=== PATIENT | male | born 1985 | race Caucasian/White ===

== ENCOUNTER 2019-05-16 22:07 | Emergency (ER) | payer SELFPAY ==
[2019-05-16] MEDS ORDERED: DIAZEPAM 5 MG TABLET ONE (22:29)
[2019-05-17] MEDS ORDERED: MORPHINE 4 MG/ML SYR ONE (00:05)
--- NOTE | 2019-05-17 01:55 | EDPHYS ---
Physician Documentation [facility] Name: Campos Sampson Age: 33 yrs Sex: Male : 1985 Arrival Date: 05/16/2019 Time: 22:07 Bed 8 Private MD: ED Physician Neto Ramos HPI: 05/16 23:53 This 33 yrs old Male presents to ER via EMS with complaints of Fall Injury. snw 23:53 Details of fall: The patient fell from a height, from a ladder, approximately 3 feet. snw Onset: The symptoms/episode began/occurred acutely, just prior to arrival. Associated injuries: The patient sustained left knee, decreased range of motion, painful injury, swelling. Severity of symptoms: At their worst the symptoms were moderate, severe. The patient has not experienced similar symptoms in the past. The patient has not recently seen a physician. 23:53 Pt fell from ladder while at work at [employer]. snw Historical: - Allergies: 22:24 No Known Allergies; ea - Home Meds: 22:24 Seroquel Oral [Active]; Naproxen Oral [Active]; ea - PMHx: 22:24 Arthritis; insomnia; Hypertension; ea - PSHx: 22:24 None; ea - Immunization history: Last tetanus immunization: unknown. - Social history:: Smoking status: Patient/guardian denies using tobacco. - Ebola Screening: : No symptoms or risks identified at this time. ROS: 23:06 Constitutional: Negative for fever, chills, and weight loss, Eyes: Negative for injury, snw pain, redness, and discharge, ENT: Negative for injury, pain, and discharge, Neck: Negative for injury, pain, and swelling, Cardiovascular: Negative for chest pain, palpitations, and edema, Respiratory: Negative for shortness of breath, cough, wheezing, and pleuritic chest pain, Abdomen/GI: Negative for abdominal pain, nausea, vomiting, diarrhea, and constipation, Back: Negative for injury and pain, : Negative for injury, bleeding, discharge, and swelling, Skin: Negative for injury, rash, and discoloration, Neuro: Negative for headache, weakness, numbness, tingling, and seizure, Psych: Negative for depression, anxiety, suicide ideation, homicidal ideation, and hallucinations, Allergy/Immunology: Negative for hives, rash, and allergies, Endocrine: Negative for neck swelling, polydipsia, polyuria, polyphagia, and marked weight changes. 23:06 MS/extremity: Positive for injury or acute deformity, pain, swelling, of the left knee. Exam: 23:06 Constitutional: This is a well developed, well nourished patient who is awake, alert, snw and in no acute distress. Head/Face: Normocephalic, atraumatic. Eyes: Pupils equal round and reactive to light, extra-ocular motions intact. Lids and lashes normal. Conjunctiva and sclera are non-icteric and not injected. Cornea within normal limits. Periorbital areas with no swelling, redness, or edema. ENT: Nares patent. No nasal discharge, no septal abnormalities noted. Tympanic membranes are normal and external auditory canals are clear. Oropharynx with no redness, swelling, or masses, exudates, or evidence of obstruction, uvula midline. Mucous membranes moist. Neck: Trachea midline, no thyromegaly or masses palpated, and no cervical lymphadenopathy. Supple, full range of motion without nuchal rigidity, or vertebral point tenderness. No Meningismus. Chest/axilla: Normal chest wall appearance and motion. Nontender with no deformity. No lesions are appreciated. Cardiovascular: Regular rate and rhythm with a normal S1 and S2. No gallops, murmurs, or rubs. Normal PMI, no JVD. No pulse deficits. Respiratory: Lungs have equal breath sounds bilaterally, clear to auscultation and percussion. No rales, rhonchi or wheezes noted. No increased work of breathing, no retractions or nasal flaring. Abdomen/GI: Soft, non-tender, with normal bowel sounds. No distension or tympany. No guarding or rebound. No evidence of tenderness throughout. Back: No spinal tenderness. No costovertebral tenderness. Full range of motion. Skin: Warm, dry with normal turgor. Normal color with no rashes, no lesions, and no evidence of cellulitis. Neuro: Awake and alert, GCS 15, oriented to person, place, time, and situation. Cranial nerves II-XII grossly intact. Motor strength 5/5 in all extremities. Sensory grossly intact. Cerebellar exam normal. Normal gait. Psych: Awake, alert, with orientation to person, place and time. Behavior, mood, and affect are within normal limits. 23:06 Musculoskeletal/extremity: Extremities: all appear grossly normal, with no appreciated pain with palpation, ROM: limited active range of motion due to pain, Circulation is intact in all extremities. Sensation intact. tenderness and pain with extension to left knee. Vital Signs: 22:16 BP 153 / 103; Pulse 65; Resp 18; Temp 99.1; Pulse Ox 100% on R/A; Weight 74.84 kg; ea Height 5 ft. 9 in. (175.26 cm); Pain 10/10; 23:21 BP 140 / 71; Pulse 87; Resp 18; Pulse Ox 100% on R/A; ea 05/17 00:53 BP 140 / 71; Pulse 83; Resp 18; Pulse Ox 100% ; ea 01:57 BP 138 / 75; Pulse 92; Resp 18; Pulse Ox 99% ; ea 02:50 BP 135 / 71; Pulse 84; Resp 18; Pulse Ox 98% ; ea 05/16 22:16 Body Mass Index 24.37 (74.84 kg, 175.26 cm) ea [place] Coma Score: 05/16 22:16 Eye Response: spontaneous(4). Verbal Response: oriented(5). Motor Response: obeys ea commands(6). Total: 15. 23:21 Eye Response: spontaneous(4). Verbal Response: oriented(5). Motor Response: obeys ea commands(6). Total: 15. 05/17 00:53 Eye Response: spontaneous(4). Verbal Response: oriented(5). Motor Response: obeys ea commands(6). Total: . :58 Eye Response: spontaneous(4). Verbal Response: oriented(5). Motor Response: obeys ea commands(6). Total: 15. :50 Eye Response: spontaneous(4). Verbal Response: oriented(5). Motor Response: obeys ea commands(6). Total: 15. Trauma Score (Adult): 05/16 22:16 Eye Response: spontaneous(1); Verbal Response: oriented(1); Motor Response: obeys ea commands(2); Systolic BP: > 89 mm Hg(4); Respiratory Rate: 10 to 29 per min(4); Gretel Score: 15; Trauma Score: 12 MDM: 22:18 Patient medically screened. snw 23:55 Data reviewed: vital signs, nurses notes. Data interpreted: Pulse oximetry: on room air snw is 100 %. Interpretation: normal. Counseling: I had a detailed discussion with the patient and/or guardian regarding: the historical points, exam findings, and any diagnostic results supporting the discharge/admit diagnosis, radiology results. Physician consultation: Gagan Burnett MD was called at 23:56, was contacted at 23:56, regarding consult, patient's condition, outpatient follow-up, CT knee, immobilize, nwb, follow up. 05/17 03:05 Special discussion: Based on the history and exam findings, there is no indication for snw further emergent testing or inpatient evaluation. I discussed with the patient/guardian the need to see the orthopedic surgeon for further evaluation of the symptoms. ED course: no open lesions to left knee area. 05/16 22:19 Order name: Knee Left 3 View XRAY snw 05/16 23:56 Order name: CT LEFT KNEE WO CONTRAST EDMS 05/17 01:25 Order name: Knee Immobilizer; Complete Time: 02:33 snw 05/17 01:26 Order name: Crutches; Complete Time: 02:33 snw Administered Medications: 05/16 22:30 Drug: Valium 5 mg Route: PO; ea 23:50 Follow up: Response: No adverse reaction; Pain is decreased ea 05/17 00:09 Drug: morphine 4 mg Route: IM; Site: right deltoid; ea 01:59 Follow up: Response: No adverse reaction; Pain is decreased; RASS: Alert and Calm (0) ea 02:43 Drug: Dilaudid 1 mg {Note: rass 0.} Route: IM; Site: left deltoid; rr5 03:19 Follow up: Response: Medication administered at discharge.; RASS: Alert and Calm (0) ea Disposition: 10:20 Co-signature as Attending Physician, Neto Ramos MD I agree with the assessment and kdr plan of care. Disposition: 05/17/19 01:54 Discharged to Home. Impression: Left tibial plateau fracture, Fall on and from ladder. - Condition is Stable. - Discharge Instructions: Crutch Use, Fall Prevention in the Home, Knee Immobilizer, Tibial Plateau Fracture Treated With Open Reduction, Care After, Tibial Plateau Fracture Treated With Open Reduction. - Prescriptions for Tylenol- Codeine #3 300-30 mg Oral Tablet - take 2 tablet by ORAL route every 6 hours As needed; 30 tablet. orphenadrine citrate 100 mg Oral Tablet Sustained Release - take 1 tablet by ORAL route 2 times per day As needed; 20 tablet. - Medication Reconciliation Form, Thank You Letter, Antibiotic Education, Prescription Opioid Use, Work release form form. - Follow up: Emergency Department; When: As needed; Reason: Worsening of condition. Follow up: Gagan Burnett; When: 2 - 3 days; Reason: Recheck today's complaints, Continuance of care. Signatures: Dispatcher [employer] EDMS Neto Ramos MD MD kdr Therrien, Shelly, FNP-C MUSIC TEACHER-Charline Chaudhry RN RN ea Roque, Raymond, RN RN rr5 Corrections: (The following items were deleted from the chart) 03:19 01:54 05/17/2019 01:54 Discharged to Home. Impression: Left tibial plateau fracture; ea Fall on and from ladder. Condition is Stable. Discharge Instructions: Crutch Use, Fall Prevention in the Home, Knee Immobilizer, Tibial Plateau Fracture Treated With Open Reduction, Care After, Tibial Plateau Fracture Treated With Open Reduction. Prescriptions for Tylenol-Codeine #3 300-30 mg Oral Tablet - take 2 tablet by ORAL route every 6 hours As needed; 30 tablet, orphenadrine citrate 100 mg Oral Tablet Sustained Release - take 1 tablet by ORAL route 2 times per day As needed; 20 tablet. and Forms are Medication Reconciliation Form, Thank You Letter, Antibiotic Education, Prescription Opioid Use. Follow up: Emergency Department; When: As needed; Reason: Worsening of condition. Follow up: Gagan Burnett; When: 2 - 3 days; Reason: Recheck today's complaints, Continuance of care. snw
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
[2019-05-17] MEDS ORDERED: HYDROMORPHONE HCL 1 MG/ML INJ ONE (02:39)
[2019-05-17 03:44] VITALS: TEMP 99.1
[2019-05-17 03:50] VITALS: BP 135/71; O2SAT 98
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
--- NOTE | 2019-05-18 11:41 | RAD REPORT ---
EXAM DESCRIPTION: - CT LEFT KNEE WO CONTRAST - 05/17/2019 2:38 am CLINICAL HISTORY: Fell off a step ladder landing on left foot. Patient felt a click. COMPARISON: None. TECHNIQUE: Axial 2.[address] imaging of the left knee performed. Reformatted coronal and sagittal imag es obtained. No contrast utilized. Automated exposure control, adjustment of the mA and/or kV according to patient size, or use of itera tive reconstruction was performed. FINDINGS: There is a comminuted left proximal tibia fracture. There is depression of the lateral nazario teau by 5 mm. There is lateral displacement of the lateral fragments by 8 mm. There is a comminuted f racture of the head of the fibula. A large joint effusion is present with a fat fluid level within th e suprapatellar joint space compatible with lipohemarthrosis. There is no distal left femur fracture. Intact patella. There are a few foci of intra-articular air. No foreign body. No subcutaneous emphys wyatt. IMPRESSION: 1. Comminuted proximal left tibia and fibula head fracture. There is 5 mm depression o f the lateral tibial plateau with 8 mm lateral displacement of the fragments. Associated large lipohe marthrosis. A few bubbles of intra-articular air raises the possibility of an open injury. Electronically signed by: Mouna Mittal DO 05/17/2019 2:31 AM CUT OUT STITCHER Due to temporary technical issues with the PACS/Fluency reporting system, reports are being signed by the in house radiologist as a courtesy to ensure prompt reporting. The interpreting radiologist is f ully responsible for the content of the report.
== END 2019-05-17 03:19 | disposition home or self-care (01) ==
LOC: ER 22:07
DX: S82.142A Displaced bicondylar fracture of left tibia, initial encounter for closed fracture (principal); W11.XXXA Fall on and from ladder, initial encounter; Y93.9 Activity, unspecified; Y92.89 Other specified places as the place of occurrence of the external cause; Y99.8 Other external cause status; I10 Essential (primary) hypertension
CPT/HCPCS: 73700; 96372; 99284; J1170

== ENCOUNTER 2020-11-21 15:32 | Emergency (ER) | payer OTHER, SELFPAY ==
--- OUTSIDE RECORDS SUMMARY | 2020-11-21 15:35 | XMS REPORT | Continuity of Care Document ---
:1985 Author Organization [facility] t Address [address] [place] [address] Care Team Providers Name Role Phone Unavailable Unavailable Unavailable Payers Payer Name Policy Type Policy Number Effective Date Expiration Date S ource Problems This patient has no known problems. Allergies, Adverse Reactions, Alerts Allergy Allergy Status Severity Reaction(s) Onset Inactive Treating Comm ents Source Name Type Date Date Clinician No Known DA Active U 2018-06 [facility] Allergie 2-13 Clear s 00:00: Maza 00 [facility] Medications This patient has no known medications. Procedures This patient has no known procedures. Results Test Description Test Time Test Comments Results Result [facility] e Comments - CT LOWER EXTRM 2019-06-04 Name: W/O C LT 16:10:[address] [facility] : 1985 Age/S: 33 / M [address] Unit #: [id number] Loc: [place] [address] Phys: Dre Snyder MD Acct: [id number] Dis Date: Status: ADM IN PHONE #: [phone] Exam Date: 06/04/2019 1515 FAX #: Reason: pain left ankle and foot EXAMS: CPT: [id number] [place] EXTR[place] W/[place] [address] EXAM: - CT LOWER EXTRM W/O C LT HISTORY: pain left ankle and foot Location code:C3 COMPARISON: 05/31/2019 TECHNIQUE: Multiple axial CT images were obtained of the left foot and ankle without the use of IV contrast. Coronal and sagittal reformatted images are provided. One or more of the following dose reduction techniques were used: Automated exposure control, adjustment of the mA and/or kV according to patient size, and/or utilization of iterative reconstruction technique. DLP: 144.47 mGy-cm. FINDINGS: There is a 5 x 4 mm well-corticated ossific density along the course of the posterior tibial tendon lying just medial and inferior to the navicular. Mild midfoot degenerative changes seen with small plantar calcaneal enthesophyte. There is no acute fracture or malalignment. There is mild increased stranding of the subcutaneous tissues about the ankle greatest about the dorsal lateral aspect. IMPRESSION: 1. Well-corticated 5 mm ossific density by the posterior tibial tendon as it courses inferior medial to the navicular favors os navicularis. There is soft tissue swelling about the ankle without acute osseous abnormality. Consider MRI to assess for ligamentous injury if indicated. at 1610 Reported and signed by: Teja Hudson MD CC: Vasu Stone MD; Dre Snyder MD; Brian Avery MD Technologist:Ross Ch RT(R)(CT)(MRI) CTDI: DLP: Trnscb Date/Time: 06/04/2019 (1610) [email or web address] Orig Print D/T: S: 06/04/2019 (1606) PAGE 1 Signed Report CBC W/AUTO DIFF 2019-06-04 10:14:00 Test Item Value Reference Range Interpretation Comme nts WHITE BLOOD CELL (test code = 9.2 K/mm3 3.5-11.0 N WBC) RED BLOOD CELL (test code = RBC) 4.28 M/mm3 4.70-6.10 L HEMOGLOBIN (test code = HGB) 12.4 G/DL 12.3-15.9 N HEMATOCRIT (test code = HCT) 37.4 % 35.8-46.7 N MEAN CELL VOLUME (test code = 87.4 Fl 86.3-98.9 N MCV) MEAN CELL HGB (test code = MCH) 29.0 pg 28.9-34.4 N MEAN CELL HGB CONCETRATION (test 33.2 G/DL 32.1-34.5 N code = MCHC) RED CELL DISTRIBUTION WIDTH 12.7 SD 11.5-14.5 N (test code = RDW) PLATELET COUNT (test code = PLT) 287.0 K/mm3 150-450 N MEAN PLATELET VOLUME (test code 10.90 fL 7.0-9.6 H = MPV) NEUTROPHIL % (test code = NT%) 55.3 % 40-76 N LYMPHOCYTE % (test code = LY%) 31.6 % 20.5-51.1 N MONOCYTE % (test code = MO%) 10.3 % 1.7-9.3 H EOSINOPHIL % (test code = EO%) 2.6 % 0.0-6.0 N BASOPHIL % (test code = BA%) 0.2 % 0.0-2.0 N NEUTROPHIL # (test code = NT#) 5.07 K/mm3 1.8-7.6 N LYMPHOCYTE # (test code = LY#) 2.9 K/mm3 0.6-3.0 N MONOCYTE # (test code = MO#) 0.9 K/mm3 0.2-1.5 N EOSINOPHIL # (test code = EO#) 0.2 K/mm3 0.0-0.4 N BASOPHIL # (test code = BA#) 0.0 K/mm3 0.0-0.2 N MANUAL DIFF REQUIRED (test code NO DIFF/SCN CRITERIA SLIDE REVIEW CONSISTANT WITH = MDIFF) AUTO DIFFERENTI AL. CBC W/AUTO [id number] 07:54:00 Test Item Value Reference Range Interpretation Comments WHITE BLOOD CELL (test code = 9.2 K/mm3 3.5-11.0 N WBC) RED BLOOD CELL (test code = RBC) 4.28 M/mm3 4.70-6.10 L HEMOGLOBIN (test code = HGB) 12.4 G/DL 12.3-15.9 N HEMATOCRIT (test code = HCT) 37.4 % 35.8-46.7 N MEAN CELL VOLUME (test code = 87.4 Fl 86.3-98.9 N MCV) MEAN CELL HGB (test code = MCH) 29.0 pg 28.9-34.4 N MEAN CELL HGB CONCETRATION (test 33.2 G/DL 32.1-34.5 N code = MCHC) RED CELL DISTRIBUTION WIDTH (test 12.7 SD 11.5-14.5 N code = RDW) PLATELET COUNT (test code = PLT) 287.0 K/mm3 150-450 N MEAN PLATELET VOLUME (test code = 10.90 fL 7.0-9.6 H MPV) NEUTROPHIL % (test code = NT%) % 40-76 N LYMPHOCYTE % (test code = LY%) % 20.5-51.1 N MONOCYTE % (test code = MO%) % 1.7-9.3 H EOSINOPHIL % (test code = EO%) % 0.0-6.0 N BASOPHIL % (test code = BA%) % 0.0-2.0 N NEUTROPHIL # (test code = NT#) K/mm3 1.8-7.6 N LYMPHOCYTE # (test code = LY#) K/mm3 0.6-3.0 N MONOCYTE # (test code = MO#) K/mm3 0.2-1.5 N EOSINOPHIL # (test code = EO#) K/mm3 0.0-0.4 N BASOPHIL # (test code = BA#) K/mm3 0.0-0.2 N MANUAL DIFF REQUIRED (test code = DIFF/SCN CRITERIA MDIFF) BASIC METABOLIC [id number] 07:46:00 Test Item Value Reference Range Interpretation Comments SODIUM (test code = NA) 138 mmol/L 134-147 N POTASSIUM (test code = 4.1 mmol/L 3.4-5.0 N K) CHLORIDE (test code = 105 mmol/L 100-108 N CL) CARBON DIOXIDE (test 30 mmol/L 21-32 N code = CO2) ANION GAP (test code = 3.0 GAP calc 4.0-15.0 L GAP) GLUCOSE (test code = 87 MG/DL 70-110 N GLU) BLOOD UREA NITROGEN 20 MG/DL 7-18 H (test code = BUN) GLOMERULAR FILTRATION >=60 max estimate >60 RATE (test code = GFR) estGFR CREATININE (test code = 0.9 MG/DL 0.8-1.3 N CREAT) CALCIUM (test code = CA) 8.8 MG/DL 8.5-10.1 N [id number] 07:46:00 Test Item Value Reference Range Interpretation Comments MAGNESIUM (test code = MAG) 2.1 MG/DL 1.8-2.4 N HGB [id number] 09:03:00 Test Item Value Reference Range Interpretation Comments HEMOGLOBIN (test code = HGB) 12.8 G/DL 12.3-15.9 N HEMATOCRIT (test code = HCT) 38.7 % 35.8-46.7 N CBC W/AUTO [id number] 06:02:00 Test Item Value Reference Range Interpretation Comments WHITE BLOOD CELL (test code = 14.7 K/mm3 3.5-11.0 H WBC) RED BLOOD CELL (test code = RBC) 4.80 M/mm3 4.70-6.10 N HEMOGLOBIN (test code = HGB) 14.1 G/DL 12.3-15.9 N HEMATOCRIT (test code = HCT) 41.2 % 35.8-46.7 N MEAN CELL VOLUME (test code = 85.8 Fl 86.3-98.9 L MCV) MEAN CELL HGB (test code = MCH) 29.4 pg 28.9-34.4 N MEAN CELL HGB CONCETRATION (test 34.2 G/DL 32.1-34.5 N code = MCHC) RED CELL DISTRIBUTION WIDTH 12.9 SD 11.5-14.5 N (test code = RDW) PLATELET COUNT (test code = PLT) 314.0 K/mm3 150-450 N MEAN PLATELET VOLUME (test code 10.20 fL 7.0-9.6 H = MPV) MANUAL DIFF REQUIRED (test code YES DIFF/SCN CRITERIA = MDIFF) WBC [id number] 06:02:00 Test Item Value Reference Range Interpretation Comments SEGMENTED NEUTROPHILS (test code = SEG) % 40-75 LYMPHOCYTE (test code = LYMPH) % 12.6-43.5 CBC W/AUTO [id number] 06:02:00 Test Item Value Reference Range Interpretation Comments WHITE BLOOD CELL (test code = 14.7 K/mm3 3.5-11.0 H WBC) RED BLOOD CELL (test code = RBC) 4.80 M/mm3 4.70-6.10 N HEMOGLOBIN (test code = HGB) 14.1 G/DL 12.3-15.9 N HEMATOCRIT (test code = HCT) 41.2 % 35.8-46.7 N MEAN CELL VOLUME (test code = 85.8 Fl 86.3-98.9 L MCV) MEAN CELL HGB (test code = MCH) 29.4 pg 28.9-34.4 N MEAN CELL HGB CONCETRATION (test 34.2 G/DL 32.1-34.5 N code = MCHC) RED CELL DISTRIBUTION WIDTH 12.9 SD 11.5-14.5 N (test code = RDW) PLATELET COUNT (test code = PLT) 314.0 K/mm3 150-450 N MEAN PLATELET VOLUME (test code 10.20 fL 7.0-9.6 H = MPV) MANUAL DIFF REQUIRED (test code YES DIFF/SCN CRITERIA = MDIFF) WBC [id number] 06:02:00 Test Item Value Reference Range Interpretation Comments SEGMENTED NEUTROPHILS (test 62 % 40-75 N code = SEG) BAND NEUTROPHIL (test code 2 % 0-8 N = BAND) LYMPHOCYTE (test code = 21 % 12.6-43.5 N LYMPH) MONOCYTE (test code = MON) 12 % 4.2-12.7 N EOSINOPHIL (test code = 1 % 0.0-5.2 N EOS) METAMYELOCYTE (test code = 1 % 0-2 N META) MYELOCYTE (test code = 1 % 0-1 N MYELO) ANISOCYTOSIS (test code = NORMAL NONE ANISO) PLATELET ESTIMATE (test ADEQUATE THOUSAND ADEQUATE code = PLTEST) CBC W/AUTO [id number] 06:02:00 Test Item Value Reference Range Interpretation Comments WHITE BLOOD CELL (test code = 14.7 K/mm3 3.5-11.0 H WBC) RED BLOOD CELL (test code = RBC) 4.80 M/mm3 4.70-6.10 N HEMOGLOBIN (test code = HGB) 14.1 G/DL 12.3-15.9 N HEMATOCRIT (test code = HCT) 41.2 % 35.8-46.7 N MEAN CELL VOLUME (test code = 85.8 Fl 86.3-98.9 L MCV) MEAN CELL HGB (test code = MCH) 29.4 pg 28.9-34.4 N MEAN CELL HGB CONCETRATION (test 34.2 G/DL 32.1-34.5 N code = MCHC) RED CELL DISTRIBUTION WIDTH 12.9 SD 11.5-14.5 N (test code = RDW) PLATELET COUNT (test code = PLT) 314.0 K/mm3 150-450 N MEAN PLATELET VOLUME (test code 10.20 fL 7.0-9.6 H = MPV) MANUAL DIFF REQUIRED (test code YES DIFF/SCN CRITERIA = MDIFF) WBC [id number] 06:02:00 Test Item Value Reference Range Interpretation Comments SEGMENTED NEUTROPHILS (test code = SEG) % 40-75 LYMPHOCYTE (test code = LYMPH) % 12.6-43.5 BASIC METABOLIC [id number] 05:56:00 Test Item Value Reference Range Interpretation Comments SODIUM (test code = NA) 137 mmol/L 134-147 N POTASSIUM (test code = 3.7 mmol/L 3.4-5.0 N K) CHLORIDE (test code = 102 mmol/L 100-108 N CL) CARBON DIOXIDE (test 28 mmol/L 21-32 N code = CO2) ANION GAP (test code = 7.0 GAP calc 4.0-15.0 N GAP) GLUCOSE (test code = 119 MG/DL 70-110 H GLU) BLOOD UREA NITROGEN 21 MG/DL 7-18 H (test code = BUN) GLOMERULAR FILTRATION >=60 max estimate >60 RATE (test code = GFR) estGFR CREATININE (test code = 1.0 MG/DL 0.8-1.3 N CREAT) CALCIUM (test code = CA) 8.7 MG/DL 8.5-10.1 N CBC W/AUTO [id number] 05:47:00 Test Item Value Reference Range Interpretation Comments WHITE BLOOD CELL (test code = 14.7 K/mm3 3.5-11.0 H WBC) RED BLOOD CELL (test code = RBC) 4.80 M/mm3 4.70-6.10 N HEMOGLOBIN (test code = HGB) 14.1 G/DL 12.3-15.9 N HEMATOCRIT (test code = HCT) 41.2 % 35.8-46.7 N MEAN CELL VOLUME (test code = 85.8 Fl 86.3-98.9 L MCV) MEAN CELL HGB (test code = MCH) 29.4 pg 28.9-34.4 N MEAN CELL HGB CONCETRATION (test 34.2 G/DL 32.1-34.5 N code = MCHC) RED CELL DISTRIBUTION WIDTH (test 12.9 SD 11.5-14.5 N code = RDW) PLATELET COUNT (test code = PLT) 314.0 K/mm3 150-450 N MEAN PLATELET VOLUME (test code = 10.20 fL 7.0-9.6 H MPV) NEUTROPHIL % (test code = NT%) % 40-76 N LYMPHOCYTE % (test code = LY%) % 20.5-51.1 N MONOCYTE % (test code = MO%) % 1.7-9.3 H EOSINOPHIL % (test code = EO%) % 0.0-6.0 N BASOPHIL % (test code = BA%) % 0.0-2.0 N NEUTROPHIL # (test code = NT#) K/mm3 1.8-7.6 H LYMPHOCYTE # (test code = LY#) K/mm3 0.6-3.0 N MONOCYTE # (test code = MO#) K/mm3 0.2-1.5 H EOSINOPHIL # (test code = EO#) K/mm3 0.0-0.4 N BASOPHIL # (test code = BA#) K/mm3 0.0-0.2 N MANUAL DIFF REQUIRED (test code = DIFF/SCN CRITERIA MDIFF) - XR FLUOROSCOPY 0-60 [id number] 14:44:00 Name: JVAY GRANGER [facility] : 1985 Age/S: 33 / M [address] #: [id number] Loc: [place] [address] Phys: Richard Marie MD Acct: [id number] Dis Date: Status: ADM IN PHONE #: [phone] Exam Date: 05/31/2019 1430 FAX #: Reason: ORIF LEFT TIBIAL PLATEAU FX EXAMS: CPT: [id number] XR FLUOROSCOPY 0-60 MIN 14017 Fluoro Time: 227 SEC DAP (Gy m2): Air Kerma (mGy): EXAMINATION: - XR FLUOROSCOPY 0-60 MIN. LOCATION: S 17. HISTORY: ORIF LEFT TIBIAL PLATEAU FX. TECHNIQUE: Intraoperative fluoroscopy was utilized during surgery. Total reference air kerma was 21.54 mGy. FINDINGS/ IMPRESSION: Intraoperative fluoroscopy was utilized during surgery. Please refer to operative report for detail. at 1444 Reported and signed by: Marciano Farnsworth M.D. CC: Vasu Stone MD; Richard Marie MD PAGE 1 Signed Report Name: [place]Y [place] : 1985 Age/S: 33 / M [address] #: [id number] Loc: [place] [address] Phys: Richard Marie MD Acct: [id number] Dis Date: Status: ADM IN PHONE #: [phone] Exam Date: 05/31/2019 1430 FAX #: Reason: ORIF LEFT TIBIAL PLATEAU FX EXAMS: CPT: [id number] XR FLUOROSCOPY 0-60 MIN 88265 Fluoro Time: 227 SEC DAP (Gy m2): Air Kerma (mGy):<Continued> Technologist: Anabelle Holland, RT(R); Fartun Gray RT(R) Trnksb Date/Time: 05/31/2019 (1444) [email or web address] Orig Print D/T: S: 05/31/2019 (8782) PAGE 2 Signed Report- XR ANKLE 3+V [id number] 09:42:00 Name: JAVY GRANGER [place] : 1985 Age/S: 33 / M [address] #: [id number] Loc: [place] [address] Phys: Richard Marie MD Acct: [id number] Dis Date: Status: REG SD PHONE #: [phone] Exam Date: 05/31/2019 0920 FAX #: Reason: RULE OUTINJURY EXAMS: CPT: [id number] XR ANKLE 3+[place] [address] Fluoro Time: DAP (Gy m2): Air Kerma (mGy): EXAM: Ankle x-ray, multiple views INDICATION: RULE OUT INJURY LOCATION CODE: C3 COMPARISON: None TECHNIQUE: Multiple view study of the left ankle including AP, lateral and oblique views was evaluated. FINDINGS: Bony contours and osseous detail are well demonstrated. Joint spaces and alignment are maintained. There is no fracture, dislocation, or significant osseous variation. There is no evident foreign body. There are mild soft tissue swelling of the medial malleolar region suggests edema . IMPRESSION: 1. Normal study of the osseous left ankle. Soft tissue swelling medially with suspected ligamentous injury/sprain. at 0942 Reported and signed by: Alex Rosario M.D. CC: Bhumi Stone MD; Richard Marie MD PAGE 1 Signed Report Name: JAVY GRANGER : 1985 Age/S: 33 / M [address] Unit #: [id number] Loc: [place] [address] Phys: Richard Marie MD Acct: [id number] Dis Date: Status: REG SDC PHONE #: [phone] Exam Date: 05/31/2019919 FAX #: Reason:RULE OUT INJURY EXAMS: CPT: [id number] XR ANKLE 3+[place] [address] Fluoro Time: DAP (Gy m2): Air Kerma (mGy): <Continued> Technologist: Anabelle Fox, RT(R); Fartun Gray, RT(R) Trnscb Date/Time: 05/31/2019 (941) [email or web address] Orig Print D/T: S: 05/31/2019 (0945) PAGE 2 Signed ReportBASIC METABOLIC [id number] 06:09:00 Test Item Value Reference Range Interpretation Comments SODIUM (test code = NA) 135 mmol/L 134-147 N POTASSIUM (test code = 4.0 mmol/L 3.4-5.0 N K) CHLORIDE (test code = 104 mmol/L 100-108 N CL) CARBON DIOXIDE (test 24 mmol/L 21-32 N code = CO2) ANION GAP (test code = 7.0 GAP calc 4.0-15.0 N GAP) GLUCOSE (test code = 98 MG/DL 70-110 N GLU) BLOOD UREA NITROGEN 24 MG/DL 7-18 H (test code = BUN) GLOMERULAR FILTRATION >=60 max estimate >60 RATE (test code = GFR) estGFR CREATININE (test code = 1.0 MG/DL 0.8-1.3 N CREAT) CALCIUM (test code = CA) 9.5 MG/DL 8.5-10.1 N VITAMIN D [id number] 06:09:00 Test Item Value Reference Range Interpretation Comments VITAMIN D 8.2 ng/mL 30.0-100.0 A Vitamin D defic iency has 25-HYDROXY (test been define d by the code = VITD25) [facility] edicine and an Endocrine So ciety practice guidel ine as alevel of serum 25-OH vitamin D less than 20 ng/mL (1,2).The Endocrine Society went on to further define vitamin Dinsufficiency as a level between 21 and 29 ng/mL (2).1. IOM (Ins titute of Medicine). 2010 . Dietary reference int akes for calcium and D. Song [place]: [employer] .2. Pratibha MF, Fernando NC, Ella i GORDON, et al. Evaluatio n, treatment, and prevention of vitamin D deficiency: an Endocrine Society clinica l practice guideline. ROXIE EM. 2010; 96():9091-30.P erformed At: [facility] [address] [place], [place] [id number] Richard King MD Ph:[phone] CBC W/AUTO [id number] 18:14:00 Test Item Value Reference Range Interpretation Comments WHITE BLOOD CELL (test 11.7 K/mm3 3.5-11.0 H code = WBC) RED BLOOD CELL (test 5.45 M/mm3 4.70-6.10 N code = RBC) HEMOGLOBIN (test code 16.2 G/DL 12.3-15.9 H = HGB) HEMATOCRIT (test code 46.8 % 35.8-46.7 H = HCT) MEAN CELL VOLUME (test 85.9 Fl 86.3-98.9 L code = MCV) MEAN CELL HGB (test 29.7 pg 28.9-34.4 N code = MCH) MEAN CELL HGB 34.6 G/DL 32.1-34.5 H CONCETRATION (test code = MCHC) RED CELL DISTRIBUTION 12.8 SD 11.5-14.5 N WIDTH (test code = RDW) PLATELET COUNT (test 370.0 K/mm3 150-450 N code = PLT) MEAN PLATELET VOLUME 10.40 fL 7.0-9.6 H (test code = MPV) NEUTROPHIL % (test 65.2 % 40-76 N code = NT%) LYMPHOCYTE % (test 24.3 % 20.5-51.1 N code = LY%) MONOCYTE % (test code 8.7 % 1.7-9.3 N = MO%) EOSINOPHIL % (test 1.5 % 0.0-6.0 N code = EO%) BASOPHIL % (test code 0.3 % 0.0-2.0 N = BA%) NEUTROPHIL # (test 7.66 K/mm3 1.8-7.6 H code = NT#) LYMPHOCYTE # (test 2.9 K/mm3 0.6-3.0 N code = LY#) MONOCYTE # (test code 1.0 K/mm3 0.2-1.5 N = MO#) EOSINOPHIL # (test 0.2 K/mm3 0.0-0.4 N code = EO#) BASOPHIL # (test code 0.0 K/mm3 0.0-0.2 N = BA#) MANUAL DIFF REQUIRED NO DIFF/SCN CRITERIA SLIDE R EVIEW (test code = MDIFF) CONSISTA NT WITH AUTO DIFFERENTIAL. SED [id number] 18:14:00 Test Item Value Reference Range Interpretation Comments SED RATE (test code = SEDW) 22 mm/hr 0-15 H CBC W/AUTO [id number] 14:51:00 Test Item Value Reference Range Interpretation Comments WHITE BLOOD CELL (test code = 11.7 K/mm3 3.5-11.0 H WBC) RED BLOOD CELL (test code = RBC) 5.45 M/mm3 4.70-6.10 N HEMOGLOBIN (test code = HGB) 16.2 G/DL 12.3-15.9 H HEMATOCRIT (test code = HCT) 46.8 % 35.8-46.7 H MEAN CELL VOLUME (test code = 85.9 Fl 86.3-98.9 L MCV) MEAN CELL HGB (test code = MCH) 29.7 pg 28.9-34.4 N MEAN CELL HGB CONCETRATION (test 34.6 G/DL 32.1-34.5 H code = MCHC) RED CELL DISTRIBUTION WIDTH (test 12.8 SD 11.5-14.5 N code = RDW) PLATELET COUNT (test code = PLT) 370.0 K/mm3 150-450 N MEAN PLATELET VOLUME (test code = 10.40 fL 7.0-9.6 H MPV) NEUTROPHIL % (test code = NT%) 65.2 % 40-76 N LYMPHOCYTE % (test code = LY%) 24.3 % 20.5-51.1 N MONOCYTE % (test code = MO%) 8.7 % 1.7-9.3 N EOSINOPHIL % (test code = EO%) 1.5 % 0.0-6.0 N BASOPHIL % (test code = BA%) 0.3 % 0.0-2.0 N NEUTROPHIL # (test code = NT#) 7.66 K/mm3 1.8-7.6 H LYMPHOCYTE # (test code = LY#) 2.9 K/mm3 0.6-3.0 N MONOCYTE # (test code = MO#) 1.0 K/mm3 0.2-1.5 N EOSINOPHIL # (test code = EO#) 0.2 K/mm3 0.0-0.4 N BASOPHIL # (test code = BA#) 0.0 K/mm3 0.0-0.2 N MANUAL DIFF REQUIRED (test code = DIFF/SCN CRITERIA MDIFF) SED [id number] 14:51:00 Test Item Value Reference Range Interpretation Comments SED RATE (test code = SEDW) 22 mm/hr 0-15 H URINALYSIS [id number] 14:05:00 Test Item Value Reference Range Interpretation Comments UA GLUCOSE DIPSTICK (test NEGATIVE mg/dL NEG code = DGLUU) UA BILIRUBIN DIPSTICK (test NEGATIVE mg/dL NEG code = BILU) UA KETONE DIPSTICK (test NEGATIVE mg/dL NEG code = KETU) UA SPECIFIC GRAVITY (test 1.025 SG 1.005-1.030 code = SGU) UA BLOOD DIPSTICK (test TRACE mg/DL NEG code = KEYSHA) UA PH DIPSTICK (test code = 6.0 pH UNITS 5.0-7.0 CARSON) UA PROTEIN DIPSTICK (test TRACE mg/dL NEG A code = PROU) UA UROBILINIOGEN DIPSTICK 0.2 mg/dL <2.0 (test code = URO) UA NITRITE DIPSTICK (test NEGATIVE SCREEN NEG code = ZIYAD) UA LEUKOCYTE ESTERASE NEGATIVE Leuk/mcL NEGATIVE DIPSTICK (test code = LEUU) Urine Specimen Type: Clean CatchC REACTIVE [id number] 13:57:00 Test Item Value Reference Range Interpretation Comments C REACTIVE PROTEIN (test code = 1.190 MG/DL 0.000-0.3 H CRP) PROTHROMBIN [id number] 13:41:00 Test Item Value Reference Range Interpretation Comments PT PATIENT (test code = PTP) 13.2 SECONDS 9.3-12.9 H INTERNATIONAL NORMAL RATIO 1.16 INR Unit 0.8-1.2 N (test code = INR) THROMBOPLASTIN TIME [id number] 13:41:00 Test Item Value Reference Range Interpretation Comments THROMBOPLASTIN TIME PARTIAL 29.8 SECONDS 26-35 N (test code = PTT) BASIC METABOLIC [id number] 13:39:00 Test Item Value Reference Range Interpretation Comments SODIUM (test code = NA) 135 mmol/L 134-147 N POTASSIUM (test code = 4.0 mmol/L 3.4-5.0 N K) CHLORIDE (test code = 104 mmol/L 100-108 N CL) CARBON DIOXIDE (test 24 mmol/L 21-32 N code = CO2) ANION GAP (test code = 7.0 GAP calc 4.0-15.0 N GAP) GLUCOSE (test code = 98 MG/DL 70-110 N GLU) BLOOD UREA NITROGEN 24 MG/DL 7-18 H (test code = BUN) GLOMERULAR FILTRATION >=60 max estimate >60 RATE (test code = GFR) estGFR CREATININE (test code = 1.0 MG/DL 0.8-1.3 N CREAT) CALCIUM (test code = CA) 9.5 MG/DL 8.5-10.1 N VITAMIN D [id number] 13:39:00 Test Item Value Reference Range Interpretation Comments VITAMIN D 25-HYDROXY (test code = VITD25) CBC W/AUTO [id number] 13:22:00 Test Item Value Reference Range Interpretation Comments WHITE BLOOD CELL (test code = 11.7 K/mm3 3.5-11.0 H WBC) RED BLOOD CELL (test code = RBC) 5.45 M/mm3 4.70-6.10 N HEMOGLOBIN (test code = HGB) 16.2 G/DL 12.3-15.9 H HEMATOCRIT (test code = HCT) 46.8 % 35.8-46.7 H MEAN CELL VOLUME (test code = 85.9 Fl 86.3-98.9 L MCV) MEAN CELL HGB (test code = MCH) 29.7 pg 28.9-34.4 N MEAN CELL HGB CONCETRATION (test 34.6 G/DL 32.1-34.5 H code = MCHC) RED CELL DISTRIBUTION WIDTH (test 12.8 SD 11.5-14.5 N code = RDW) PLATELET COUNT (test code = PLT) 370.0 K/mm3 150-450 N MEAN PLATELET VOLUME (test code = 10.40 fL 7.0-9.6 H MPV) NEUTROPHIL % (test code = NT%) % 40-76 N LYMPHOCYTE % (test code = LY%) % 20.5-51.1 N MONOCYTE % (test code = MO%) % 1.7-9.3 N EOSINOPHIL % (test code = EO%) % 0.0-6.0 N BASOPHIL % (test code = BA%) % 0.0-2.0 N NEUTROPHIL # (test code = NT#) K/mm3 1.8-7.6 H LYMPHOCYTE # (test code = LY#) K/mm3 0.6-3.0 N MONOCYTE # (test code = MO#) K/mm3 0.2-1.5 N EOSINOPHIL # (test code = EO#) K/mm3 0.0-0.4 N BASOPHIL # (test code = BA#) K/mm3 0.0-0.2 N MANUAL DIFF REQUIRED (test code = DIFF/SCN CRITERIA MDIFF) SED [id number] 13:22:00 Test Item Value Reference Range Interpretation Comments SED RATE (test code = SEDW) mm/hr 0-15 - XR CHEST 2 [id number] 12:33:00 Name: JAVY GRANGER [facility] : 1985 Age/S: 33 / M [address] [place] Unit #: [id number] Loc: [place] [address] Phys: Richard Marie MD Acct: [id number] Dis Date: Status: PRE [facility] PHONE #: [phone] Exam Date: 05/28/2019 1227 FAX #: Reason: PREOP EXAMS: CPT: [id number] XR CHEST 2 V 99053 Fluoro Time: DAP (Gy m2): Air Kerma (mGy): LOCATION: T18 EXAM: CHEST 2 VIEWS INDICATION: PREOP COMPARISON: None. TECHNIQUE: PA and lateral chest radiographs. FINDINGS: Lungs are clear bilaterally without effusion. Heartand mediastinum are normal in size and contour. Bones and peripheral soft tissues are unremarkable. IMPRESSION: Lungs are clear. No acute abnormality. at 1233 Reported and signed by: Rohan Grissom M.D. CC: Vasu Stone MD; Richard Marie MD PAGE 1 Signed Report Name: JAVY GRANGER [facility] : 1985 Age/S: 33 / M [address] [place] Unit #: [id number] Loc: [place] [address] Phys: Richard Marie MD Acct: [id number] Dis Date:Status: PRE SDC PHONE #: [phone] Exam Date: 05/28/2019 1224 FAX #: Reason: PREOP EXAMS: CPT: [id number] XR CHEST 2 V 86652 Fluoro Time: DAP (Gy m2): Air Kerma (mGy): <Continued> Technologist: Anabelle Holland, RT(R) Trnscb Date/Time: 05/28/2019 (5815) [id number] Orig Print D/T: S: 05/28/2019 (8415) PAGE 2 Signed Report
--- NOTE | 2020-11-21 16:39 | ER ---
Nurse's Notes [facility] Name: Campos Sampson Age: 35 yrs Sex: Male : 1985 Arrival Date: 11/21/2020 Time: 15:37 Bed 28 Private MD: Diagnosis: Effusion, right knee;Pain in right knee Presentation: 11/21 15:58 Chief complaint: Patient states: R knee swelling x 3 days, no recent injury, pain is ph worse when walking. Hx of gout in foot and ankle. Coronavirus screen: Client denies travel out of the [place] in the last 14 days. At this time, the client does not indicate any symptoms associated with coronavirus-19. Ebola Screen: No symptoms or risks identified at this time. Initial Sepsis Screen: Does the patient meet any 2 criteria? No. Patient's initial sepsis screen is negative. Does the patient have a suspected source of infection? No. Patient's initial sepsis screen is negative. Risk Assessment: Do you want to hurt yourself or someone else? Patient reports no desire to harm self or others. Onset of symptoms was November 21, 2020. 15:58 Method Of Arrival: Wheelchair ph 15:58 Acuity: ANGELA 4 ph Historical: - Allergies: 16:03 No Known Allergies; ph - Home Meds: 16:03 gabapentin oral oral [Active]; Naproxen Oral [Active]; Seroquel Oral [Active]; ph - PMHx: 16:03 Arthritis; Hypertension; insomnia; Chronic pain; ph - PSHx: 16:03 None; ph - Immunization history:: Client reports having NOT received the Covid vaccine. - Social history:: Smoking status: Patient denies any tobacco usage or history of. - Family history:: not pertinent. - Hospitalizations: : No recent hospitalization is reported. Screenin:47 Abuse screen: Denies threats or abuse. Nutritional screening: No deficits noted. ap3 Tuberculosis screening: No symptoms or risk factors identified. Fall Risk No fall in past 12 months (0 pts). Secondary diagnosis (15 points) impaired mobility, No IV (0 pts). Ambulatory Aid- None/Bed Rest/Nurse Assist (0 pts). Gait- Weak (10 pts.). Mental Status- Oriented to own ability (0 pts). Total Torres Fall Scale indicates Low Risk Score (25-44 pts). Fall prevention measures have been instituted. Side Rails Up X 2 Frequent Obs/Assesments occuring Family Present and informed to notify staff if they need to leave bedside As available Patient and Family Educated on Fall Prevention Program and strategies. Assessment: 16:43 General: Appears in no apparent distress. comfortable, Behavior is calm, cooperative, ap3 appropriate for age. Pain: Complains of pain in right knee Pain does not radiate. Pain currently is 8 out of 10 on a pain scale. Neuro: Level of Consciousness is awake, alert, obeys commands, Oriented to person, place, time, situation. Cardiovascular: Denies chest pain, Capillary refill < 3 seconds. Respiratory: Airway is patent Respiratory effort is even, unlabored, Respiratory pattern is regular, symmetrical. GI: No signs and/or symptoms were reported involving the gastrointestinal system. : No signs and/or symptoms were reported regarding the genitourinary system. EENT: No signs and/or symptoms were reported regarding the EENT system. Musculoskeletal: Swelling present in right knee patient has left knee taped up. patient denies pain in the left knee. states the pain is isolated to the right knee. Vital Signs: 15:58 BP 153 / 91; Pulse 84; Resp 18; Temp 97.9; Pulse Ox 97% on R/A; Weight 147.42 kg; ph Height 5 ft. 11 in. (180.34 cm); 15:58 Body Mass Index 45.33 (147.42 kg, 180.34 cm) ph ED Course: 15:37 Patient arrived in ED. mr 16:01 Triage completed. ph 16:01 Arm band placed on. ph 16:07 Cole Sarah MD is Attending Physician. rn 16:12 Dayana Randolph RN is Primary Nurse. ap3 16:38 Edison Mayers MD is Referral Physician. rn 16:48 Patient has correct armband on for positive identification. Bed in low position. Call ap3 light in reach. Side rails up X2. Adult w/ patient. Pulse ox on. NIBP on. Door closed. Noise minimized. 16:48 No provider procedures requiring assistance completed. Patient did not have IV access ap3 during this emergency room visit. Administered Medications: No medications were administered Outcome: 16:39 Discharge ordered by . rn 16:48 Discharged to home ambulatory, with family. ap3 16:48 Condition: good 16:48 Discharge instructions given to patient, family, Instructed on discharge instructions, follow up and referral plans. Demonstrated understanding of instructions, follow-up care. 16:49 Patient left the ED. ap3 Signatures: Lisa Mejia TyrelCole MD MD rn Hall, Patricia, RN RN Dayana Randolph RN RN ap3
--- NOTE | 2020-11-21 16:39 | EDPHYS ---
Physician Documentation [facility] Name: Campos Sampson Age: 35 yrs Sex: Male : 1985 Arrival Date: 11/21/2020 Time: 15:37 Bed 28 Private MD: ED Physician Cole Sarah HPI: 11/21 16:33 This 35 yrs old Male presents to ER via Wheelchair with complaints of Knee rn swelling. 16:33 The patient presents with pain, swelling. The complaints affect the right knee. Onset: rn The symptoms/episode began/occurred 5 day(s) ago. Modifying factors: The symptoms are alleviated by remaining still, the symptoms are aggravated by weight bearing, bending knee. Associated signs and symptoms: Pertinent negatives fever, nausea, numbness, tingling, warmth, weakness. Severity of symptoms: At their worst the symptoms were moderate, in the emergency department the symptoms are unchanged. The patient has experienced a previous episode. The patient has not recently seen a physician. Reports right knee pain and swelling, has happened before, has gout, no fever, does not feel ill, has been on steroids but not helping. No direct injury. Reports bad left knee and bad back, now having right knee problems. . Historical: - Allergies: 16:03 No Known Allergies; ph - Home Meds: 16:03 gabapentin oral oral [Active]; Naproxen Oral [Active]; Seroquel Oral [Active]; ph - PMHx: 16:03 Arthritis; Hypertension; insomnia; Chronic pain; ph - PSHx: 16:03 None; ph - Immunization history:: Client reports having NOT received the Covid vaccine. - Social history:: Smoking status: Patient denies any tobacco usage or history of. - Family history:: not pertinent. - Hospitalizations: : No recent hospitalization is reported. ROS: 16:33 Constitutional: Negative for fever, chills, and weight loss, Eyes: Negative for injury, rn pain, redness, and discharge, Cardiovascular: Negative for chest pain, palpitations, and edema, Respiratory: Negative for shortness of breath, cough, wheezing, and pleuritic chest pain, Abdomen/GI: Negative for abdominal pain, nausea, vomiting, diarrhea, and constipation, Back: + chronic back pain MS/Extremity: + right knee pain and swelling Skin: Negative for injury, rash, and discoloration, Neuro: Negative for headache, weakness, numbness, tingling, and seizure. Exam: 16:33 Constitutional: This is a well developed, well nourished patient who is awake, alert, rn and in no acute distress. Cardiovascular: Regular rate and rhythm. No pulse deficits. Respiratory: No increased work of breathing, no retractions or nasal flaring. Skin: Warm, dry with normal turgor. Normal color with no rashes, no lesions, and no evidence of cellulitis. MS/ Extremity: Pulses equal, no cyanosis. Neurovascular intact. No warmth or redness of right knee, + mild suprapatellar knee effusion. + painful ROM right knee. Left knee wrapped with KT tape. Equal circumference. Vital Signs: 15:58 BP 153 / 91; Pulse 84; Resp 18; Temp 97.9; Pulse Ox 97% on R/A; Weight 147.42 kg; ph Height 5 ft. 11 in. (180.34 cm); 15:58 Body Mass Index 45.33 (147.42 kg, 180.34 cm) ph MDM: 16:08 Patient medically screened. rn 16:33 Differential diagnosis: knee effusion, GOUT, arthritis, reactive arthritis. Data rn reviewed: vital signs, nurses notes, and as a result, I will discharge patient. Counseling: I had a detailed discussion with the patient and/or guardian regarding: the historical points, exam findings, and any diagnostic results supporting the discharge/admit diagnosis, the need for outpatient follow up, to return to the emergency department if symptoms worsen or persist or if there are any questions or concerns that arise at home. Special discussion: I discussed with the patient/guardian in detail that at this point there is no indication for admission to the hospital. It is understood, however, that if the symptoms persist or worsen the patient needs to return immediately for re-evaluation. Further emergent ED testing is not indicated at this point in time. I discussed with the patient/guardian in detail the need to arrange with the PCP or specialist further outpatient testing, MRI, Based on the history and exam findings, there is no indication for further emergent testing or inpatient evaluation. I discussed with the patient/guardian the need to see the orthopedic surgeon for further evaluation of the symptoms. ED course: Offered needle aspiration to rule out Gout/infection, patient declines, states has happened before, doesn't feel sick, and doesn't feel like knee is infected. Recommend outpt MRI, ortho f/u, and given return precautions. . Administered Medications: No medications were administered Disposition: 11/21/20 16:39 Discharged to Home. Impression: Effusion, right knee, Pain in right knee. - Condition is Stable. - Discharge Instructions: Knee Effusion, Knee Pain. - Medication Reconciliation Form, Thank You Letter, Antibiotic Education, Prescription Opioid Use form. - Follow up: Edison Mayers MD; When: As needed; Reason: Recheck today's complaints, Re-evaluation by your physician. - Problem is new. - Symptoms are unchanged. Signatures: Cole Sarah MD MD rn HookerStephanie RN RN Dayana Randolph RN RN ap3 Corrections: (The following items were deleted from the chart) 16:49 16:39 11/21/2020 16:39 Discharged to Home. Impression: Effusion, right knee; Pain in ap3 right knee. Condition is Stable. Forms are Medication Reconciliation Form, Thank You Letter, Antibiotic Education, Prescription Opioid Use. Follow up: Dr. Edison Mayers; When: As needed; Reason: Recheck today's complaints, Re-evaluation by your physician. Problem is new. Symptoms are unchanged. rn
[2020-11-21 17:19] VITALS: BP 153/91; TEMP 97.9; O2SAT 97
== END 2020-11-21 16:49 | disposition home or self-care (01) ==
LOC: ER 15:32
DX: M25.461 Effusion, right knee (principal); I10 Essential (primary) hypertension
CPT/HCPCS: 99283

== ENCOUNTER 2021-11-07 07:40 | Emergency (ER) | payer SELFPAY ==
--- OUTSIDE RECORDS SUMMARY | 2021-11-07 07:44 | XMS REPORT | Continuity of Care Document ---
:1985 Author Organization [facility] t Address [address] [place] [address] Care Team Providers Name Role Phone BATSHEVA PHAM Attending Clinician Unavailable BATSHEVA PHAM Admitting Clinician Unavailable Payers Payer Name Policy Type Policy Number Effective Date Expiration Date S ource MISW MISW [id number] Problems This patient has no known problems. Allergies, Adverse Reactions, Alerts Allergy Allergy Status Severity Reaction(s) Onset Inactive Treating Comm ents Source Name Type Date Date Clinician No Known DA Active U 2018-06 [facility] Allergie 2-13 Clear s 00:00: Maza [address] [facility] Medications This patient has no known medications. Procedures This patient has no known procedures. Encounters Start End Encounter Admission Attending Care Care Encounter Source Date/Time Date/Time Type Type Clinicians Facility Department ID 2019-06-05 2019-06-13 Inpatient 3 MILES PHAM MARILU [id number] ENCPL 21:20:00 09:15:00 BATSHEVA 1221 Results Test Description Test Time Test Comments Results Result [facility] e Comments - CT LOWER EXTRM 2019-06-04 Name: W/O C LT 16:10:00 JAVY GRANGER [facility] : 1985 Age/S: 33 / M [address] Unit #: [id number] Loc: [place] [address] Phys: Dre Snyder MD Acct: [id number] Dis Date: Status: ADM IN PHONE #: [phone] Exam Date: 06/04/2019 1515 FAX #: Reason: pain left ankle and foot EXAMS: CPT: [id number] [place] LOWER EXTRM W/[place] [address] EXAM: - CT LOWER EXTRM W/O C [...] Dre Snyder MD; Brian Avery MD Technologist:Ross Ch, RT(R)(CT)(MRI) CTDI: DLP: Trnscb Date/Time: 06/04/2019 (1610) [email or web address] Orig Print D/T: S: 06/04/2019 (0193) PAGE 1 Signed Report CBC W/AUTO DIFF [...] = MDIFF) AUTO DIFFERENTI AL. CBC W/AUTO [id number] 07:54:00 Test Item Value Reference Range Interpretation [...] code = DIFF/SCN CRITERIA MDIFF) BASIC METABOLIC [id number] 07:46:00 Test Item Value Reference Range Interpretation [...] code = CA) 8.8 MG/DL 8.5-10.1 N [id number] 07:46:00 Test Item Value Reference Range Interpretation Comments MAGNESIUM (test code = MAG) 2.1 MG/DL 1.8-2.4 N HGB [id number] 09:03:00 Test Item Value Reference Range Interpretation Comments HEMOGLOBIN (test code = HGB) 12.8 G/DL 12.3-15.9 N HEMATOCRIT (test code = HCT) 38.7 % 35.8-46.7 N CBC W/AUTO [id number] 06:02:00 Test Item Value Reference Range Interpretation [...] code YES DIFF/SCN CRITERIA = MDIFF) WBC [id number] 06:02:00 Test Item Value Reference Range Interpretation Comments SEGMENTED NEUTROPHILS (test code = SEG) % 40-75 LYMPHOCYTE (test code = LYMPH) % 12.6-43.5 CBC W/AUTO [id number] 06:02:00 Test Item Value Reference Range Interpretation [...] code YES DIFF/SCN CRITERIA = MDIFF) WBC [id number] 06:02:00 Test Item Value Reference Range Interpretation [...] THOUSAND ADEQUATE code = PLTEST) CBC W/AUTO [id number] 06:02:00 Test Item Value Reference Range Interpretation [...] code YES DIFF/SCN CRITERIA = MDIFF) WBC [id number] 06:02:00 Test Item Value Reference Range Interpretation Comments SEGMENTED NEUTROPHILS (test code = SEG) % 40-75 LYMPHOCYTE (test code = LYMPH) % 12.6-43.5 BASIC METABOLIC [id number] 05:56:00 Test Item Value Reference Range Interpretation [...] CA) 8.7 MG/DL 8.5-10.1 N CBC W/AUTO [id number] 05:47:00 Test Item Value Reference Range Interpretation [...] DIFF/SCN CRITERIA MDIFF) - XR FLUOROSCOPY 0-60 [id number] 14:44:00 Name: JAVY GRANGER [place] : 1985 Age/S: 33 / M [address] Unit #: [id number] Loc: [place] [address] Phys: Richard Marie MD Acct: [id number] Dis Date: Status: ADM IN PHONE #: [phone] Exam Date: 05/31/2019 1430 FAX #: Reason: ORIF LEFT TIBIAL PLATEAU FX EXAMS: CPT: [id number] XR FLUOROSCOPY 0-60 MIN 58052 Fluoro Time: 227 SEC DAP (Gy m2): [...] PAGE 1 Signed Report Name: JAVY GRANGER [place] : 1985 Age/S: 33 / M [address] Unit #: [id number] Loc: [place] [address] Phys: Richard Marie MD Acct: [id number] Dis Date: Status: ADM IN PHONE #: [phone] Exam Date: 05/31/2019 1430 FAX #: Reason: ORIF LEFT TIBIAL PLATEAU FX EXAMS: CPT: [id number] XR FLUOROSCOPY 0-60 MIN 38781 Fluoro Time: 227 SEC DAP (Gy m2): Air Kerma (mGy):<Continued> Technologist: Anabelle Holland, RT(R); Fartun Gray, RT(R) Trnakb Date/Time: 05/31/2019 (5251) [email or web address] Orig Print D/T: S: 05/31/2019 (7954) PAGE 2 Signed Report- XR ANKLE 3+V [id number] 09:42:00 [facility] [place] [facility] 1985 Age/S: 33 / M [address] Unit #: [id number] Loc: [place] [address] Phys: Richard Marie MD Acct: [id number] Dis Date: Status: REG SD PHONE #: [phone] Exam Date: 05/31/2019 0920 FAX #: Reason: RULE OUTINJURY EXAMS: CPT: [id number] XR ANKLE 3+[place] [address] Fluoro Time: DAP (Gy m2): Air Kerma [...] PAGE 1 Signed Report Name: JAVY GRANGER [place] : 1985 Age/S: 33 / M [address] Unit #: [id number] Loc: [place] [address] Phys: Richard Marie MD Acct: [id number] Dis Date: Status: REG [facility] PHONE #: [phone] Exam Date: 05/31/2019919 FAX #: Reason:RULE OUT INJURY EXAMS: CPT: [id number] XR ANKLE 3+[place] [address] Fluoro Time: DAP (Gy m2): Air Kerma (mGy): <Continued> Technologist: Anabelle Fox, RT(R); Fartun Gray, RT(R) Trnakb Date/Time: 05/31/2019 (0942) [email or web address] Orig Print D/T: S: 05/31/2019 (1534) PAGE 2 Signed ReportBASI METABOLIC [id number] 06:09:00 Test Item Value Reference Range Interpretation [...] CA) 9.5 MG/DL 8.5-10.1 N VITAMIN D [id number] 06:09:00 Test Item Value Reference Range Interpretation Comments VITAMIN D 8.2 ng/mL 30.0-100.0 A Vitamin D defic iency has 25-HYDROXY (test been define d by the code = VITD25) [facility] edicine and an Endocrine So ety practice guidel ine as alevel of serum 25-OH vitamin D less than 20 ng/mL (1,2).The Endocrine Society went on to further define vitamin Dinsufficiency as a level between 21 and 29 ng/mL (2).1. IOM (Ins titute of Medicine). 2010 . Dietary reference int akes for calcium and D. [place]: [employer] .2. Pratibha MF, Fernando NC, Ella i GORDON, et al. Evaluatio n, treatment, and prevention of vitamin D deficiency: an Endocrine Society clinica l practice guideline. RXOIE EM. 2010; 96(7):1911-30.P erformed At: [facility] [address] [place], [place] [id number] Richard King MD Ph:[phone] CBC W/AUTO [id number] 18:14:00 Test Item Value Reference Range Interpretation [...] MDIFF) CONSISTA NT WITH AUTO DIFFERENTIAL. SED [id number] 18:14:00 Test Item Value Reference Range Interpretation Comments SED RATE (test code = SEDW) 22 mm/hr 0-15 H CBC W/AUTO [id number] 14:51:00 Test Item Value Reference Range Interpretation [...] (test code = DIFF/SCN CRITERIA MDIFF) SED [id number] 14:51:00 Test Item Value Reference Range Interpretation Comments SED RATE (test code = SEDW) 22 mm/hr 0-15 H URINALYSIS [id number] 14:05:00 Test Item Value Reference Range Interpretation [...] LEUU) Urine Specimen Type: Clean CatchC REACTIVE [id number] 13:57:00 Test Item Value Reference Range Interpretation Comments C REACTIVE PROTEIN (test code = 1.190 MG/DL 0.000-0.3 H CRP) PROTHROMBIN [id number] 13:41:00 Test Item Value Reference Range Interpretation Comments PT PATIENT (test code = PTP) 13.2 SECONDS 9.3-12.9 H INTERNATIONAL NORMAL RATIO 1.16 INR Unit 0.8-1.2 N (test code = INR) THROMBOPLASTIN TIME [id number] 13:41:00 Test Item Value Reference Range Interpretation Comments THROMBOPLASTIN TIME PARTIAL 29.8 SECONDS 26-35 N (test code = PTT) BASIC METABOLIC [id number] 13:39:00 Test Item Value Reference Range Interpretation [...] CA) 9.5 MG/DL 8.5-10.1 N VITAMIN D [id number] 13:39:00 Test Item Value Reference Range Interpretation Comments VITAMIN D 25-HYDROXY (test code = VITD25) CBC W/AUTO [id number] 13:22:00 Test Item Value Reference Range Interpretation [...] (test code = DIFF/SCN CRITERIA MDIFF) SED [id number] 13:22:00 Test Item Value Reference Range Interpretation Comments SED RATE (test code = SEDW) mm/hr 0-15 - XR CHEST 2 [id number] 12:33:00 Name: JAVY GRANGER [facility] : 1985 Age/S: 33 / M [address] Unit #: [id number] Loc: [place] [address] Phys: Richard Marie MD Acct: [id number] Dis Date: Status: PRE [facility] PHONE #: [phone] Exam Date: 05/28/2019 1224 FAX #: Reason: PREOP EXAMS: CPT: [id number] XR CHEST 2 V 48560 Fluoro Time: DAP (Gy m2): Air Kerma (mGy): LOCATION: T18 EXAM: CHEST 2 VIEWS INDICATION: PREOP COMPARISON: None. TECHNIQUE: PA and lateral chest radiographs. FINDINGS: Lungs are clear bilaterally without effusion. Heartand mediastinum are normal in size and contour. Bones and peripheral soft tissues are unremarkable. IMPRESSION: Lungs are clear. No acute abnormality. at 2913 Reported and signed by: Rohan Grissom M.D. CC: Vasu Stone MD; Richard Marie MD PAGE 1 Signed Report Name: JAVY GRANGER [place] : 1985 Age/S: 33 / M [address] Unit #: [id number] Loc: [place] [address] Phys: Richard Marie MD Acct: [id number] Dis Date:Status: PRE [facility] PHONE #: [phone] Exam Date: 05/28/2019 1224 FAX #: Reason: PREOP EXAMS: CPT: [id number] XR CHEST 2 V 99029 Fluoro Time: DAP (Gy m2): Air Kerma (mGy): <Continued> Technologist: Anabelle Holland, RT(R) Trnscb Date/Time: 05/28/2019 (9383) [id number] Orig Print D/T: S: 05/28/2019 (1845) PAGE 2 Signed Report
--- NOTE | 2021-11-07 08:34 | EDPHYS ---
Physician Documentation [facility] Name: Campos Sampson Age: 36 yrs Sex: Male : 1985 Arrival Date: 11/07/2021 Time: 07:44 Bed Waiting Private MD: Vasu Stone T ED Physician Cole Sarah HPI: 11/07 08:29 This 36 yrs old Male presents to ER via Unassigned with complaints of pain to right arm.rn 08:29 The patient or guardian complains of pain, that is chronic. The complaints affect the rn anterior aspect of right shoulder and right bicep. Onset: The symptoms/episode began/occurred 4 day(s) ago. Modifying factors: The symptoms are alleviated by nothing. the symptoms are aggravated by movement. Associated signs and symptoms: Pertinent positives: tingling, Pertinent negatives: deformity, erythema, fever, swelling, weakness. Severity of symptoms: At their worst the symptoms were moderate, in the emergency department the symptoms are unchanged. The patient has experienced similar episodes in the past. Pt reports degenerative disk disease, and herniated disks in neck. Has had intermittent right arm tingling and painful ROM, comes from neck and shoots down arm. Takes gabapentin already. Denies trauma. Pain returned/worsened in last 4 days. No weakness. Similar episodes in past. No other focal neurological complaints. States episodes last 4-7 days in past and improve on their own.. Historical: - Allergies: 08:31 No Known Allergies; ss - PMHx: 08:31 Arthritis; Chronic pain; Hypertension; insomnia; degenerative disc disease; ss - Immunization history:: Client reports having NOT received the Covid vaccine. - Social history:: Smoking status: Patient denies any tobacco usage or history of. - Family history:: not pertinent. - Hospitalizations: : No recent hospitalization is reported. ROS: 08:29 Constitutional: Negative for fever, chills, and weight loss, Eyes: Negative for injury, rn pain, redness, and discharge, Neck: + neck pain Cardiovascular: Negative for chest pain, palpitations, and edema, Respiratory: Negative for shortness of breath, cough, wheezing, and pleuritic chest pain, Abdomen/GI: Negative for abdominal pain, nausea, vomiting, diarrhea, and constipation, Back: Negative for injury and pain, MS/Extremity: + RUE pain Skin: Negative for injury, rash, and discoloration, Neuro: + tingling to RUE Exam: 08:29 Constitutional: This is a well developed, well nourished patient who is awake, alert, rn and in no acute distress. Ambulatory with walking stick to triage without assistance. Head/Face: Normocephalic, atraumatic. Neck: Supple, full range of motion without nuchal rigidity, or vertebral point tenderness. No Meningismus. Cardiovascular: Regular rate and rhythm. No pulse deficits. Respiratory: No increased work of breathing, no retractions or nasal flaring. MS/ Extremity: Pulses equal, no cyanosis. Neurovascular intact. Painful elevation or arm above shoulder level. Neuro: Awake and alert, GCS 15, oriented to person, place, time, and situation. Cranial nerves II-XII grossly intact. Motor strength 5/5 in all extremities. Sensory grossly intact. Cerebellar exam normal. Normal gait. Vital Signs: 08:29 BP 140 / 116; Pulse 84; Resp 18; Temp 98.1(TE); Pulse Ox 98% on R/A; Weight 152.41 kg; ss Height 5 ft. 11 in. (180.34 cm); Pain 5/10; 08:29 Body Mass Index 46.86 (152.41 kg, 180.34 cm) ss MDM: 07:47 Patient medically screened. rn 08:29 Differential diagnosis: tendonitis, arthritis, radiculopathy. Data reviewed: vital rn signs, nurses notes, old medical records, and as a result, I will discharge patient. Counseling: I had a detailed discussion with the patient and/or guardian regarding: the historical points, exam findings, and any diagnostic results supporting the discharge/admit diagnosis, the need for outpatient follow up, to return to the emergency department if symptoms worsen or persist or if there are any questions or concerns that arise at home. Special discussion: I discussed with the patient/guardian in detail that at this point there is no indication for admission to the hospital. It is understood, however, that if the symptoms persist or worsen the patient needs to return immediately for re-evaluation. Based on the history and exam findings, there is no indication for further emergent testing or inpatient evaluation. I discussed with the patient/guardian the need to see the back specialist for further evaluation of the symptoms. Administered Medications: No medications were administered Disposition Summary: 11/07/21 08:34 Discharge Ordered Location: Home rn Problem: chronic rn Symptoms: have improved rn Condition: Stable rn Diagnosis - Cervical disc disorder with radiculopathy rn Followup: rn - With: Private Physician - When: As needed - Reason: Recheck today's complaints, Re-evaluation by your physician Discharge Instructions: - Discharge Summary Sheet rn - Cervical Radiculopathy rn Forms: - Medication Reconciliation Form rn - Thank You Letter rn - Antibiotic college intern - Prescription Opioid Use rn Prescriptions: - Prednisone 20 mg Oral Tablet - take 3 tablets by ORAL route once daily for 5 days; 15 tablet; Refills: 0, rn Product Selection Permitted Signatures: Cole Sarah MD MD rn Smirch, Shelby, RN RN ss
--- NOTE | 2021-11-07 08:34 | ER ---
Nurse's Notes [facility] Name: Campos Sampson Age: 36 yrs Sex: Male : 1985 Arrival Date: 11/07/2021 Time: 07:44 Bed Waiting Private MD: Vasu Stone T Diagnosis: Cervical disc disorder with radiculopathy Presentation: 11/07 08:29 Chief complaint: Patient states: "I have degenerative disc disease and it's hurting so ss bad to where I can't lift my arm. This time it just seems like it's not getting any better." Pt reports that the pain became this bad 4-5 days ago. Coronavirus screen: Client denies travel out of the [place] in the last 14 days. Ebola Screen: Patient denies exposure to infectious person. Patient denies travel to an Ebola-affected area in the 21 days before illness onset. Initial Sepsis Screen: Does the patient meet any 2 criteria? No. Patient's initial sepsis screen is negative. Does the patient have a suspected source of infection? No. Patient's initial sepsis screen is negative. Risk Assessment: Do you want to hurt yourself or someone else? Patient reports no desire to harm self or others. Onset of symptoms was November 02, 2021. 08:29 Method Of Arrival: Ambulatory ss 08:29 Acuity: ANGELA 3 ss Historical: - Allergies: 08:31 No Known Allergies; ss - PMHx: 08:31 Arthritis; Chronic pain; Hypertension; insomnia; degenerative disc disease; ss - Immunization history:: Client reports having NOT received the Covid vaccine. - Social history:: Smoking status: Patient denies any tobacco usage or history of. - Family history:: not pertinent. - Hospitalizations: : No recent hospitalization is reported. Vital Signs: 08:29 BP 140 / 116; Pulse 84; Resp 18; Temp 98.1(TE); Pulse Ox 98% on R/A; Weight 152.41 kg; ss Height 5 ft. 11 in. (180.34 cm); Pain 5/10; 08:29 Body Mass Index 46.86 (152.41 kg, 180.34 cm) ED Course: 07:44 Patient arrived in ED. mr 07:44 Vasu Stone MD is Private Physician. mr 07:47 Cole Sarah MD is Attending Physician. rn 08:31 Triage completed. ss 08:31 Arm band placed on left wrist. ss 09:43 Lauren Mares RN is Primary Nurse. iw Administered Medications: No medications were administered Outcome: 08:34 Discharge ordered by . rn 09:58 Patient left the ED. iw Signatures: Lisa Mejia mr Lauren Mares, RN RN Cole Sarah MD MD rn Smirch, Shelby, RN RN
[2021-11-07] MEDS ORDERED: dexAMETHasone 10 MG/ML VIAL ONE (09:52)
[2021-11-07 10:04] VITALS: BP 140/116; TEMP 98.1; O2SAT 98
== END 2021-11-07 09:58 | disposition home or self-care (01) ==
LOC: ER 07:40
DX: M50.13 Cervical disc disorder with radiculopathy, cervicothoracic region (principal); G89.29 Other chronic pain; I10 Essential (primary) hypertension
CPT/HCPCS: 99281; J1100

== ENCOUNTER 2022-11-04 17:40 | Emergency (ER) | payer SELFPAY ==
--- OUTSIDE RECORDS SUMMARY | 2022-11-04 17:44 | XMS REPORT | Continuity of Care Document ---
:1985 Author Organization [facility] t Address [address] [facility] [place] [address] Care Team Providers Name Role Phone BATSHEVA PHAM NATASHA Attending Clinician Unavailable BATSHEVA PHAM NATASHA Admitting Clinician Unavailable Payers Payer Name Policy Type Policy Number Effective Date Expiration Date S ource MISW MISW [id number] Problems This patient has no known problems. Allergies, Adverse Reactions, Alerts Allergy Allergy Status Severity Reaction(s) Onset Inactive Treating Comm ents Source Name Type Date Date Clinician No Known DA Active U 2018-06 [facility] Allergie 2-13 Clear s 00:00: Maza 00 [facility] Medications This patient has no known medications. Procedures This patient has no known procedures. Encounters Start End Encounter Admission Attending Care Care Encounter Source Date/Time Date/Time Type Type Clinicians Facility Department ID 2022-10-30 2022-10-30 Outpatient [facility] Sammy 15:19:14 15:19:14 [id number] F Grady 2022-10-07 2022-10-07 Outpatient [facility] Sammy 09:58:04 09:58:04 [id number] F Grady 2022-09-02 2022-09-02 Outpatient [facility] Sammy 14:49:39 14:49:39 [id number] F Grady 2019-06-05 2019-06-13 Inpatient 3 MILES PHAM [id number] 19 [facility] 21:20:00 09:15:[address] [facility] itation [place] d Results Test Description Test Time Test Comments Results Result Comments Source CULTURE, URINE 2022-10-09 SPECIMEN NUMBER: 13:21:34 [id number] CULTURE, URINE SPECIMEN NUMBER: [id number] SPECIMEN COMMENT: URINE SOURCE: URINE REPORT STATUS: FINAL FINAL REPORT: 10/09/2022 10-50,000 CFU/ML UROGENITAL KRYSTIAN PRESENT NO COMMON PATHOGENS [facility] REFLEX AUTOIMMUNE AB PROFILE 2022-10-09 00:03:52 Test Item Value Reference Range Interpretation Comme nts ANTI-NUCLEAR ANTIBODIES NEGATIVE NEGATIVE Met hodology is Indirect (test code = 3506) Immunoflu orescent Assay (IFA) with a titering system using [id number] cells ( Hep2 cells transfected wit h SS-A/Ro). [facility] PATTERN (REPORTED SEE BELOW TITER) (test code = 52889) HOMOGENEOUS (test code = NEGATIVE TITER NEGATIVE 77467) SPECKLED (test code = NEGATIVE TITER NEGATIVE 260912) DENSE FINE SPECKLED (test NEGATIVE TITER NEGATIVE code = 00838) CENTROMERE (test code = NEGATIVE TITER NEGATIVE 280768) COARSE SPECKLED (test code NEGATIVE TITER NEGATIVE = 971626) DISCRETE NUCLEAR DOTS (test NEGATIVE TITER NEGATIVE code = 105435) NUCLEOLAR (test code = NEGATIVE TITER NEGATIVE 854016) NUCLEAR MEMBRANE (test code NEGATIVE TITER NEGATIVE = 596798) CYTO. RETICULAR (DARRELL) NEGATIVE NEGATIVE (test code = 832128) COMMENTS (test code = NONE 481377) METHOD (test code = 38271) (NOTE) TESTING PERFORMED BY [employer] NOV A VIEW IFA PLATFORM.THE NM THOD INCLUDES A SCREEN THRESHOL D OF 1:80, DIGITIZED AND C OMPUTER ALGORITHM-MARGY DUSTY INTERPRETATION OF TITERS AND DIGITAL PATTERN S, AND HEp-2 CELL LINE SUBSTRATE. ADDITIONAL UNUSUAL PATTERN S WILL BE GIVEN COMMENTS.FOR MORE INFORMATION, SE E [email or web address]-Testing RHEUMATOID FACTOR, [id number] 23:07:35 Test Item Value Reference Range Interpretation Comments RHEUMATOID FACTOR, QUANT (test code <10 IU/ML <14 = 3502) SEDIMENTATION [id number] 11:23:05 Test Item Value Reference Range Interpretation Comments SEDIMENTATION RATE (test code = 2 MM/HOUR 0-15 1017) VITAMIN D, 25 [id number] 10:47:08 Test Item Value Reference Range Interpretation Comments VITAMIN D, 25 26 NG/ML SEE BELOW L EFFECTIVE 06/24/2022, [place] (test code PLEASE NOTE NE W METHODOLOGY = 4958) IS ELECTROCH EMILUMINESCENCE BINDING ASSAY. NOTE: 25-HYDROXYVITAM IN D ASSAY INCLUDES 25-HYD ROXYVITAMIN D2 AND D3. I NTERPRETIVE RANGES PED IATRIC (<17 YEARS) . . . . . . . . . . . NG/ML 20-100ADU LT: INSUFFICIENT . . . . . . . . . . . . . . NG/ML <20 SUBOP TIMAL . . . . . . . . . . . . . . . NG/ML 20-29 OPTIMAL . . . . . . . . . . . . . . . . . NG/ML 30-100 [facility] has important p athology staff changes effecti ve 08/14/2022. New patholo gy staff will provide uninter rupted, excellent patie nt care and clinical consul tation. See URL: [email or web address]. UNLESS OTHERWI SE INDICATED, ALL TESTING PER FORMED AT CLINICAL PATHOL [facility] [employer], [facility]. [address] [place] [address] 4 SENIOR POLICY ANALYST: Taty BROWN [id number] CAP ACCREDITATION N O. [id number] C-REACTIVE [id number] 07:03:35 Test Item Value Reference Range Interpretation Comments C-REACTIVE PROTEIN (test code = 1.5 MG/DL <0.5 H 3513) URIC [id number] 04:53:18 Test Item Value Reference Range Interpretation Comments URIC ACID (test code = 2233) 11.8 MG/DL 3.7-8.0 H - CT LOWER EXTRM W/O C [id number] 16:10:00 Name: JAVY GRANGER formerly [facility] : 1985 Age/S: 33 / M [address] Unit #: [id number] Loc: [place] [address] Phys: Dre Snyder MD Acct: [id number] Dis Date: Status: ADM IN PHONE#: [phone] Exam Date: 06/04/2019 1515 FAX #: Reason: pain left ankle and foot EXAMS: CPT: [id number] [place] L[place]TR[place] W/[place] [address] EXAM: - CT LOWER EXTRM W/O C LT HISTORY: pain left ankle and footLocation code:C3 COMPARISON: 05/31/2019 TECHNIQUE: Multiple axial CT images were obtained of the left foot and ankle without the use of IV contrast. Coronal and sagittal reformatted images are provided. One or more of the following dose reduction techniques were used: Automated exposure control, adjustment of the mA and/or kV according to patient size, and/or utilization of iterative reconstruction te chnique. DLP: 144.47 mGy-cm. FINDINGS: There is a 5 x 4 mm well-corticated ossific density along thecourse of the posterior tibial tendon lying just [...] (1610) [email or web address] Orig Print D/T: S: 06/04/2019 (8565) PAGE 1 Signed ReportCBC W/AUTO DIFF 2019-06-04 10:14:00 Test Item Value Reference Range Interpretation Comments WHITE BLOOD CELL (test 9.2 K/mm3 3.5-11.0 N code = WBC) RED BLOOD CELL (test 4.28 M/mm3 4.70-6.10 L code = RBC) HEMOGLOBIN (test code 12.4 G/DL 12.3-15.9 N = HGB) HEMATOCRIT (test code 37.4 % 35.8-46.7 N = HCT) MEAN CELL VOLUME (test 87.4 Fl 86.3-98.9 N code = MCV) MEAN CELL HGB (test 29.0 pg 28.9-34.4 N code = MCH) MEAN CELL HGB 33.2 G/DL 32.1-34.5 N CONCETRATION (test code = MCHC) RED CELL DISTRIBUTION 12.7 SD 11.5-14.5 N WIDTH (test code = RDW) PLATELET COUNT (test 287.0 K/mm3 150-450 N code = PLT) MEAN PLATELET VOLUME 10.90 fL 7.0-9.6 H (test code = MPV) NEUTROPHIL % (test 55.3 % 40-76 N code = NT%) LYMPHOCYTE % (test 31.6 % 20.5-51.1 N code = LY%) MONOCYTE % (test code 10.3 % 1.7-9.3 H = MO%) EOSINOPHIL % (test 2.6 % 0.0-6.0 N code = EO%) BASOPHIL % (test code 0.2 % 0.0-2.0 N = BA%) NEUTROPHIL # (test 5.07 K/mm3 1.8-7.6 N code = NT#) LYMPHOCYTE # (test 2.9 K/mm3 0.6-3.0 N code = LY#) MONOCYTE # (test code 0.9 K/mm3 0.2-1.5 N = MO#) EOSINOPHIL # (test 0.2 K/mm3 0.0-0.4 N code = EO#) BASOPHIL # (test code 0.0 K/mm3 0.0-0.2 N = BA#) MANUAL DIFF REQUIRED NO DIFF/SCN CRITERIA SLIDE R EVIEW (test code = MDIFF) CONSISTA NT WITH AUTO DIFFERENTIAL. CBC W/AUTO [id number] 07:54:00 Test Item Value Reference Range Interpretation [...] code = DIFF/SCN CRITERIA MDIFF) BASIC METABOLIC [id number] 07:46:00 Test Item Value Reference Range Interpretation [...] code = CA) 8.8 MG/DL 8.5-10.1 N [id number] 07:46:00 Test Item Value Reference Range Interpretation Comments MAGNESIUM (test code = MAG) 2.1 MG/DL 1.8-2.4 N HGB [id number] 09:03:00 Test Item Value Reference Range Interpretation Comments HEMOGLOBIN (test code = HGB) 12.8 G/DL 12.3-15.9 N HEMATOCRIT (test code = HCT) 38.7 % 35.8-46.7 N CBC W/AUTO [id number] 06:02:00 Test Item Value Reference Range Interpretation [...] code YES DIFF/SCN CRITERIA = MDIFF) WBC [id number] 06:02:00 Test Item Value Reference Range Interpretation Comments SEGMENTED NEUTROPHILS (test code = SEG) % 40-75 LYMPHOCYTE (test code = LYMPH) % 12.6-43.5 CBC W/AUTO [id number] 06:02:00 Test Item Value Reference Range Interpretation [...] code YES DIFF/SCN CRITERIA = MDIFF) WBC [id number] 06:02:00 Test Item Value Reference Range Interpretation [...] THOUSAND ADEQUATE code = PLTEST) CBC W/AUTO [id number] 06:02:00 Test Item Value Reference Range Interpretation [...] code YES DIFF/SCN CRITERIA = MDIFF) WBC [id number] 06:02:00 Test Item Value Reference Range Interpretation Comments SEGMENTED NEUTROPHILS (test code = SEG) % 40-75 LYMPHOCYTE (test code = LYMPH) % 12.6-43.5 BASIC METABOLIC [id number] 05:56:00 Test Item Value Reference Range Interpretation [...] CA) 8.7 MG/DL 8.5-10.1 N CBC W/AUTO [id number] 05:47:00 Test Item Value Reference Range Interpretation [...] DIFF/SCN CRITERIA MDIFF) - XR FLUOROSCOPY 0-60 [id number] 14:44:00 Name: JAVY GRANGER formerly [facility] : 1985 Age/S: 33 / M [address] Unit #: [id number] Loc: [place] [address] Phys: Richard Marie MD Acct: [id number] Dis Date: Status: ADM IN PHONE #: [phone] Exam Date: 05/31/2019 1430 FAX #: Reason: ORIF LEFT TIBIAL PLATEAU FX EXAMS: CPT: [id number] XR FLUOROSCOPY 0-60 MIN 59144 Fluoro Time: 227 SEC DAP (Gy m2): Air Kerma (mGy): EXAMINATION: - XR FLUOROSCOPY 0-60 MIN. LOCATION: S 17. HISTORY: ORIF LEFT TIBIAL PLATEAU FX. TECHNIQUE: Intraop erative fluoroscopy was utilized during surgery. Total reference air kerma was 21.54 mGy. FINDINGS/ IMPRESSION: Intraoperative fluoroscopy was utilized during surgery. Please refer to operative report for detail. at 1444 Reported and signed by: Marciano Farnsworth M.D. CC: aVsu Stone MD; Richard Marie MD PAGE 1 Signed Report Name: [facility] [place] [facility] 1985 Age/S: 33 / M [address] Unit #: [id number] Loc: [place] [address] Phys: Richard Marie MD Acct: [id number] Dis Date: Status: ADM IN PHONE #: [phone] Exam Date: 05/31/2019 1430 FAX #: Reason: ORIF LEFT TIBIAL PLATEAU FX EXAMS: CPT: [id number] XR FLUOROSCOPY 0-60 MIN 90973 Fluoro Time: 227 SEC DAP (Gy m2): Air Kerma (mGy): (Continued) Technologist: Anabelle Holland, RT(R); Fartun Gray, RT(R) Trnutb Date/Time: 05/31/2019 (1444) [email or web address] Orig Print D/T: S: 05/31/2019 (0515) PAGE 2 Signed Report- XR ANKLE 3+V [id number] 09:42:00 Name: JAVY GRANGER formerly [facility] : 1985 Age/S: 33 / M [address] Unit #: [id number] Loc: [place] [address] Phys: Richard Marie MD Acct: [id number] Dis Date: Status: REG SD PHONE #: [phone] Exam Date: 05/31/2019 0920 FAX #: Reason: RULE OUT INJURY EXAMS: CPT: [id number] XRANKLE 3+[place] [address] Fluoro Time: DAP (Gy m2): Air Kerma [...] tissue swelling medially with suspected ligamentous injury/sprain. Electronically S igned by Taty Rosario on 05/31/2019 at 0942 Reported and signed by: Alex Rosario M.D. CC: Vasu Stone MD; Richard Marie MD PAGE 1 Signed Report Name: JAVY GRANGER [place] : 1985 Age/S: 33 / M [address] Unit #: [id number] Loc: [place] [address] Phys: Richard Marie MD Acct: [id number] Dis Date: Status: REG [facility] PHONE #: [phone] Exam Date: 05/31/2019919 FAX #: Reason: RULE OUT INJURY EXAMS: CPT: [id number] XR ANKLE 3+[place] [address] Fluoro Time: DAP (Gy m2): Air Kerma (mGy): (Continued) Technologist: Anabelle Holland, RT(R); Fartun Gray, RT(R) Trnscb Date/Time: 05/31/2019 (09) [email or web address] Orig Print D/T: S: 05/31/2019 (7819) PAGE 2 Signed ReportBASI METABOLIC [id number] 06:09:00 Test Item Value Reference Range Interpretation [...] CA) 9.5 MG/DL 8.5-10.1 N VITAMIN D [id number] 06:09:00 Test Item Value Reference Range Interpretation Comments VITAMIN D 8.2 ng/mL 30.0-100.0 A Vitamin D defic iency has 25-HYDROXY (test been define d by the code = VITD25) [facility] edicine and an Endocrine So replaced by [facility] practice guidel ine as alevel of serum 25-OH vitamin D less than 20 ng/mL (1,2).The Endocrine Society went on to further define vitamin Dinsufficiency as a level between 21 and 29 ng/mL (2).1. IOM (Ins titute of Medicine). 2010 . Dietary reference intak es for calcium and D. Song [place]: The [employer] .2. Pratibha MF, Fernando GREGG, Ella chang GORDON, et al. Evaluation, treatment, and prevention of vitamin D de ficiency: an Endocrine So replaced by [facility] clinical practi ce guideline. JCEM . 2010; 96(3):1911-30.P erformed At: [facility] [id number] [place], [place] [id number] Richard King MD Ph:[phone] CBC W/AUTO [id number] 18:14:00 Test Item Value Reference Range Interpretation [...] MDIFF) CONSISTA NT WITH AUTO DIFFERENTIAL. SED [id number] 18:14:00 Test Item Value Reference Range Interpretation Comments SED RATE (test code = SEDW) 22 mm/hr 0-15 H CBC W/AUTO [id number] 14:51:00 Test Item Value Reference Range Interpretation [...] (test code = DIFF/SCN CRITERIA MDIFF) SED [id number] 14:51:00 Test Item Value Reference Range Interpretation Comments SED RATE (test code = SEDW) 22 mm/hr 0-15 H URINALYSIS [id number] 14:05:00 Test Item Value Reference Range Interpretation [...] LEUU) Urine Specimen Type: Clean CatchC REACTIVE [id number] 13:57:00 Test Item Value Reference Range Interpretation Comments C REACTIVE PROTEIN (test code = 1.190 MG/DL 0.000-0.3 H CRP) PROTHROMBIN [id number] 13:41:00 Test Item Value Reference Range Interpretation Comments PT PATIENT (test code = PTP) 13.2 SECONDS 9.3-12.9 H INTERNATIONAL NORMAL RATIO 1.16 INR Unit 0.8-1.2 N (test code = INR) THROMBOPLASTIN TIME [id number] 13:41:00 Test Item Value Reference Range Interpretation Comments THROMBOPLASTIN TIME PARTIAL 29.8 SECONDS 26-35 N (test code = PTT) BASIC METABOLIC [id number] 13:39:00 Test Item Value Reference Range Interpretation [...] CA) 9.5 MG/DL 8.5-10.1 N VITAMIN D [id number] 13:39:00 Test Item Value Reference Range Interpretation Comments VITAMIN D 25-HYDROXY (test code = VITD25) CBC W/AUTO [id number] 13:22:00 Test Item Value Reference Range Interpretation [...] (test code = DIFF/SCN CRITERIA MDIFF) SED [id number] 13:22:00 Test Item Value Reference Range Interpretation Comments SED RATE (test code = SEDW) mm/hr 0-15 - XR CHEST 2 [id number] 12:33:00 Name: JAVY GRANGER formerly [facility] : 1985 Age/S: 33 / M [address] Unit #: [id number] Loc: [place] [address] Phys: Richard Marie MD Acct: [id number] Dis Date: Status: PRE SDC PHONE #: [phone] Exam Date: 05/28/2019 1224 FAX #: Reason: PREOP EXAMS: CPT: [id number] XR CHEST 2 [id number] Fluoro Time: DAP (Gy m2): Air Kerma (mGy): LOCATION: T18 EXAM: CHEST 2 VIEWS INDICATION: PREOPCOMPARISON: None. TECHNIQUE: PA and lateral chest radiographs. FINDINGS: Lungs are clear bilaterallywithout effusion. Heart and mediastinum are normal in size and contour. Bones and peripheral soft tissues are unremarkable. IMPRESSION: Lungs are clear. No acute abnormality. at 2543 Reported and signed by: Rohan Grissom M.D. CC: Vasu Stone MD; Richard Marie MD PAGE 1 Signed Report Name: JAVY GRANGER formerly [facility] : 1985 Age/S: 33 / M [address] Unit #: [id number] Loc: [place] [address] Phys: Richard Marie MD Acct: [id number] Dis Date: Status: PRE SDC PHONE #: [phone] Exam Date: 05/28/2019 1224 FAX #: Reason: PREOP EXAMS: CPT: [id number] XR CHEST 2 V 12989 Fluoro Time: DAP (Gy m2): Air Kerma (mGy): (Continued) Technologist: Anabelle Holland, RT(R) Trnscb Date/Time: 05/28/2019 (1233) [email or web address] Orig Print D/T: S: 05/28/2019 (1231) PAGE 2 Signed Report Notes Date/Time Note Provider Source 2019-06-14 07:36:00-00:00 [facility] ([facility]) Hospitalist Discharge Summary REPORT#:[id number] REPORT STATUS: Signed DATE:06/14/19 TIME:36 PATIENT: JAVY GRANGER UNIT #: [id number] ROOM/BED: [place] [address] : [birth year] AGE: 33 SEX: M ATTEND: Kailash Avery MD ADM AUTHOR: Dre Snyder MD * ALL edits or amendments must be made on the el ectronic/computer document * PCP PCP PCP: PCP: Vasu Stone MD Discharge to: rehab General Information Date of admission: Observation Start Date: 05/31/19 Date of admission: 06/01/19 Discharge date: 06/05/19 Discharge diagnosis: see hosp course Hospital course: HOSP COURSE The patient is a 33-year-old male. He has a past medical history of osteoarthritis and insomnia. The patient had fallen around 05/16/2019 and went to a freestanding ER in [place] [employer] where he followed up apparently with orthopedic surgery. At that time, he had a brace applied to the left knee, which was not removed until whenever he came for elective surgery this admission where Dr. Marie did open reduction and interna l fixation of the left tibial plateau. The patient is status post this procedu re and is nonweightbearing for the next 3 months ac cording to Dr. Marie. ASSESSMENT AND PLAN: 1. Complicated left knee fracture. The patient h ad surgery with Dr. Marie with open reduction and internal fixation and he also had repair of the lateral meniscus. At this point, the patient is nonweightbearing for the next 3 months. Rehab referral- 2. Leukocytosis. WBC went up from 11.7 to 14.7. No evidence of infection, likely secondary to pain. We will manage his jose martin n as needed. resolved 3. Vitamin D deficiency. This is new for the patient's vitamin D level of 8.2. Start the patient on vitamin D 2000 units per d ay. Outpatient endocrinology 06/05:Discharge orders placed for inpat rehab Pt. condition on discharge: improved, stable Med Rec Med Rec Discharge meds: Stop taking the following medications: ACETAMINOPHEN/CODEINE (TYLENOL WITH CODEINE #3 3 00/30 MG) 300 MG-30 MG TAB 1 TABLET ORAL EVERY 6 HOURS NEEDED. as neede d for PAIN METHOCARBAMOL (ROBAXIN) 500 MG TAB 500 MILLIGRAM ORAL THREE TIMES A DAY. NAPROXEN (NAPROSYN) 375 MG TAB 440 MILLIGRAM ORAL TWICE DAILY. Continue taking these medications: QUEtiapine (SEROquel) 100 MG TAB 200 MILLIGRAM ORAL BEDTIME. ORPHENADRINE ER (NORFLEX) 100 MG TAB.SA 100 MILLIGRAM ORAL TWICE DAILY. Start taking the following new medications: ENOXAPARIN (LOVENOX) 30 MG/0.3 ML DISP.SYRIN 30 MILLIGRAM SUBCUTANEOUS 1430,0230 Days = 30 No Refills HYDROcodone/APAP (NORCO 10/325) 10 MG-325 MG TAB 1 TABLET ORAL EVERY 4 HOURS NEEDED. as neede d for PAIN SCALE 4-5 Days = 30 No Refills HYDROcodone/APAP (NORCO 10/325) 10 MG-325 MG TAB 2 TABLET ORAL EVERY 4 HOURS NEEDED. as neede d for PAIN SCALE 7-10 Days = 14 No Refills NAPROXEN (NAPROSYN) 250 MG TAB 500 MILLIGRAM ORAL TWICE DAILY WITH MEALS. Days = 30 No Refills DOCUSATE SODIUM (COLACE) 100 MG CAP 100 MILLIGRAM ORAL TWICE DAILY. Days = 30 No Refills FAMOTIDINE (PEPCID) 20 MG TAB 20 MILLIGRAM ORAL TWICE DAILY. Days = 30 No Refills CHOLECALCIFEROL (VITAMIN D3) (VITAMIN D3) 1,000 UNIT CAP 2,000 INTERNATIONAL UNITS ORAL DAILY. Days = 30 No Refills Discharge Instructions Prescriptions: on chart Electronically Signed by Dre Snyder MD on 05/18 at 0739 RPT #: [id number] END OF REPORT 2019-06-05 11:40:00-00:00 [facility] ([facility] Hospitalist Progress Note REPORT#:[id number] REPORT STATUS: Signed DATE:06/05/19 TIME:1140 PATIENT: JAVY GRANGER UNIT #: [id number] ROOM/BED: [place] [address] : [birth year] AGE: 33 SEX: M ATTEND: Kailash Avery MD ADM AUTHOR: Dre Snyder MD * ALL edits or amendments must be made on the el ectronic/computer document * Subjective Chief Complaint: Pain L leg, constant pressure L foot Review of Systems Respiratory: Denies: SOB. Cardiovascular: Denies: chest pain. Objective General VS/I O: Vital Signs: Date Time Temp Pulse Resp B/P B/P Pulse O2 O2 F low FiO2 Mean Ox Delivery Rate 06/05 1139 36.5 119 18 141/92 108.2 92 Room air 06/05 0750 96 Room air 06/05 0728 36.6 89 18 144/99 113.8 92 Room air 06/05 0415 36.8 93 16 150/93 112.4 96 Room air 06/05 0018 36.8 94 16 128/79 95.5 95 Room air 06/04 1958 98 Room air 21 06/04 1952 36.6 90 16 142/85 103.5 97 Room air 06/04 1617 36.8 95 18 133/79 97.3 94 Room air 24 hour I O ending at 0700: 06/05 0700 06/04 1900 Intake Total 360 Output Total 1999 240 Balance -1999 Intake, Oral 360 Output, Urine 19990 Patient Weight Weight (lb): 330 Weight (oz): 11.09 Weight (kg): 149.685 Physical Exam General appearance: alert, awake Cardiovascular: normal capillary refill, regular rate rhythm Respiratory: aerating well, no distress Abdomen: non-tender, normal bowel sounds , soft, no distention, no guarding, no hernial, no mass/organomegaly, no rebound Extremities: no clubbing, no cyanosis, n o edema, Post op dressing/brace L knee mild swelling L ankle Diagnosis, Assessment Plan Free Text DxA P Notes Free Text DxA P Notes: ASSESSMENT AND PLAN: 1. Complicated left knee fracture. The patient h ad surgery with Dr. Marie with open reduction and internal fixation and he also had repair of the lateral meniscus. At this point, the patient is nonweightbearing for the next 3 months. Rehab referral-if declined w ill consider home with home health with nursing staffing coordinator for bed baths and assistance at home 2. Leukocytosis. WBC went up from 11.7 to 14.7. No evidence of infection, likely secondary to pain. We will manage his jose martin n as needed. resolved 3. Vitamin D deficiency. This is new for the patient's vitamin D level of 8.2. Start the patient on vitamin D 2000 units per d ay. Outpatient endocrinology I understand he is accepted for rehab but workma n comp authorization pending CT LLE as constant L foot pain 06/05:Discharge orders place d conditional if patient accepted at inpatient rehab Electronically Signed by rDe Snyder MD on 05/17 07/04 at 1141 RPT #: [id number] END OF REPORT 2019-06-04 15:48:00-00:[address] [facility] [place], [place]) Hospitalist Progress Note REPORT#:[id number] REPORT STATUS: Signed DATE:06/04/19 TIME:1547 PATIENT: JAVY GRANGER UNIT #: [id number] ROOM/BED: [place] [address] : [birth year] AGE: 33 SEX: M ATTEND: Kailash Avery MD ADM AUTHOR: Dre Snyder MD * ALL edits or amendments must be made on the [employer]/computer document * Subjective Chief Complaint: Pain L leg, constant pressure L foot Review of Systems Respiratory: Denies: SOB. Cardiovascular: Denies: chest pain. Objective General VS/I O: Vital Signs: Date Time Temp Pulse Resp B/P B/P Pulse O2 O2 Flow FiO2 Mean Ox Delivery Rate 06/04 1112 36.8 104 18 133/96 108.3 92 Room air 06/04 0747 36.6 85 18 150/92 111.5 93 Room air 06/04 0412 36.6 89 18 152/96 114.4 95 Room air 06/04 0011 36.6 103 18 123/82 95.4 95 Room air 06/03 1954 36.3 94 18 130/82 98.0 96 Room air 06/03 1603 36.6 97 18 137/87 104.0 96 Room air 24 hour I O ending at 0700: 06/04 0700 06/03 1900 Intake Total 6000 240 Output Total 1400 1300 Balance 4600 -1060 Intake, Oral 6000 240 Number 1 1 Bowel Movements Number Voids 3 Output, Urine 1400 1300 Patient Weight Weight (lb): 330 Weight (oz): 11.09 Weight (kg): 149.685 Physical Exam General appearance: alert, awake Cardiovascular: normal capillary refill, regular rate rhythm Respiratory: aerating well, no distress Abdomen: non-tender, normal bowel sounds , soft, no distention, no guarding, no hernial, no mass/organomegaly, no rebound Extremities: no clubbing, no cyanosis, n o edema, Post op dressing/brace L knee mild swelling L ankle Diagnosis, Assessment Plan Free Text DxA P Notes Free Text DxA P Notes: ASSESSMENT AND PLAN: 1. Complicated left knee fracture. The patient h ad surgery with Dr. Marie with open reduction and internal fixation and he also had repair of the lateral meniscus. At this point, the patient is nonweightbearing for the next 3 months. Rehab referral-if declined w ill consider home with home health with nursing staffing coordinator for bed baths and assistance at home 2. Leukocytosis. WBC went up from 11.7 to 14.7. No evidence of infection, likely secondary to pain. We will manage his jose martin n as needed. resolved 3. Vitamin D deficiency. This is new for the patient's vitamin D level of 8.2. Start the patient on vitamin D 2000 units per d ay. Outpatient endocrinology I understand he is accepted for rehab but workma n comp authorization pending CT LLE as constant L foot pain Electronically Signed by Dre Snyder MD on 05/17 at 1554 RPT #: [id number] END OF REPORT 2019-06-03 18:23:00-00:00 [facility] ([facility]) Hospitalist Progress Note REPORT#:[id number] REPORT STATUS: Signed DATE:06/03/19 TIME:1822 PATIENT: JAVY GRANGER UNIT #: [id number] ROOM/BED: [place] [id number] : 84 AGE: 33 SEX: M ATTEND: Kailash Avery MD ADM AUTHOR: Dre Snyder MD * ALL edits or amendments must be made on the el Alerts/computer document * Subjective Chief Complaint: Pain about 4 out of 10 in the left leg Review of Systems Respiratory: Denies: SOB. Cardiovascular: Denies: chest pain. Objective General VS/I O: Vital Signs: Date Time Temp Pulse Resp B/P B/P Pulse O2 O2 F low FiO2 Mean Ox Delivery Rate 06/03 1603 36.6 97 18 137/87 104.0 96 Room air 06/03 1143 100 18 135/90 104.9 95 Room air 06/03 1141 36.7 94 18 158/95 115.6 96 Room air 06/03 0730 36.5 88 18 151/90 110.6 97 Room air 06/03 0436 36.4 95 18 138/86 103.1 96 Room air 06/02 2343 36.3 98 18 136/86 103.0 95 Room air 06/02 2016 36.3 89 18 147/92 110.2 95 Room air 24 hour I O ending at 0700: 06/03 0700 06/02 1900 Intake Total 800 240 Output Total 2300 1999 Balance -1500 -1760 Intake, Oral 800 240 Output, Urine 2300 1999 Patient Weight Weight (lb): 330 Weight (oz): 11.09 Weight (kg): 149.685 Physical Exam General appearance: alert, awake Cardiovascular: normal capillary refill, regular rate rhythm Respiratory: aerating well, no distress Abdomen: non-tender, normal bowel sounds , soft, no distention, no guarding, no hernial, no mass/organomegaly, no rebound Extremities: no clubbing, no cyanosis, n o edema, Post op dressing/brace L knee mild swelling L ankle Diagnosis, Assessment Plan Free Text DxA P Notes Free Text DxA P Notes: ASSESSMENT AND PLAN: 1. Complicated left knee fracture. The patient h ad surgery with Dr. Marie with open reduction and internal fixation and he also had repair of the lateral meniscus. At this point, the patient is nonweightbearing for the next 3 months. Rehab referral-if declined w ill consider home with home health with nursing staffing coordinator for bed baths and assistance at home 2. Leukocytosis. WBC went up from 11.7 to 14.7. No evidence of infection, likely secondary to pain. We will manage his jose martin n as needed. labs in am and follow 3. Vitamin D deficiency. This is new for the patient's vitamin D level of 8.2. Start the patient on vitamin D 2000 units per d ay. Outpatient endocrinology pending rehab acceptance Electronically Signed by Dre Snyder MD on 05/16 03/04 at 1824 [facility] #: [id number] END OF REPORT 2019-06-02 12:25:00-00:00 [facility] Progress Note REPORT#:[id number] REPORT STATUS: Signed DATE:06/02/19 TIME:1225 PATIENT: JAVY GRANGER UNIT #: [id number] ROOM/BED: [place] [id number] : 84 AGE: 33 SEX: M ATTEND: Kailash Avery MD ADM AUTHOR: Dre Snyder MD * ALL edits or amendments must be made on the [employer]/computer document * Subjective Chief Complaint: Pain about 4 out of 10 in the left leg Review of Systems Respiratory: Denies: SOB. Cardiovascular: Denies: chest pain. Objective General VS/I O: Vital Signs: Date Time Temp Pulse Resp B/P B/P Pulse O2 O2 F low FiO2 Mean Ox Delivery Rate 06/02 1152 36.6 102 18 147/83 104.3 95 Room air 06/02 0737 36.5 91 18 131/83 98.9 94 Room air 06/02 0426 37.1 107 16 148/83 104.8 93 Room air 06/02 0010 36.8 101 16 135/77 96.5 92 Room air 06/01 1933 36.4 97 16 136/79 97.7 94 Room air 06/01 1630 36.7 96 18 138/80 99.3 96 Room air 24 hour I O ending at 0700: 06/02 0700 06/01 1900 Intake Total 150 120 Output Total 1250 900 Balance -1100 -780 Intake, Oral 150 120 Output, Urine 1250 900 Patient 149.685 kg Weight Patient Weight Weight (lb): 330 Weight (oz): 11.09 Weight (kg): 149.685 Physical Exam General appearance: alert, awake Cardiovascular: normal capillary refill, regular rate rhythm Respiratory: aerating well, no distress Abdomen: non-tender, normal bowel sounds , soft, no distention, no guarding, no hernial, no mass/organomegaly, no rebound Extremities: no clubbing, no cyanosis, n o edema, Post op dressing/brace L knee mild swelling L ankle Diagnosis, Assessment Plan Free Text DxA P Notes Free Text DxA P Notes: ASSESSMENT AND PLAN: 1. Complicated left knee fracture. The patient h ad surgery with Dr. Marie yesterday with open reduction and internal fixat ion and he also had repair of the lateral meniscus. At this point, the patient is nonweightbearing for the next 3 months. Rehab referral-if declined w ill consider home with home health with nursing staffing coordinator for bed baths and assistance at home 2. Leukocytosis. WBC went up from 11.7 to 14.7. No evidence of infection, likely secondary to pain. We will manage his jose martin n as needed. 3. Vitamin D deficiency. This is new for the patient's vitamin D level of 8.2. Start the patient on vitamin D 2000 units per d ay. Outpatient endocrinology Current Medications Sig/Lenin Start time Last Medication Dose Route Stop Time Status Admin Quetiapine Fumarate 200 MG BEDTIME 06/01 2100 A C 06/01 PO 07/01 2058 2344 Enoxaparin Sodium 40 MG Q24H 06/01 1430 AC 05/16 7 SUBQ 06/15 1429 1453 Cholecalciferol 2,000 INTL.UNITS DAILY 06/01 12 06 CKD 06/02 PO 07/01 1205 0844 Cefazolin Sodium 1 GM Q8H 05/31 2000 AC 06/02 Sterile Water 10 ML IV 06/05 1959 1153 Naproxen 500 MG BID MEALS 05/31 1945 CKD 06/02 PO 06/30 1935 0844 Famotidine 20 MG BID 05/31 1930 AC 06/02 PO 06/30 1929 0844 Docusate Sodium 100 MG BID 05/31 1700 AC 06/02 PO 06/30 1659 0844 Pregabalin 75 MG BID 05/31 1700 DC 06/02 PO 06/02 0901 0843 Acetaminophen 500 MG Q6H PRN PRN 05/31 1430 AC PO 06/30 1429 Hydrocodone Bitart/ 1 TAB Q4H PRN PRN 05/31 143 0 AC 06/01 Acetaminophen PO 06/10 1429 1653 Hydrocodone Bitart/ 2 TAB Q4H PRN PRN 05/31 143 0 AC 06/02 Acetaminophen PO 06/10 1429 1104 Electronically Signed by Dre Snyder MD on 05/16 02/01 at 1228 RPT #: [id number] END OF REPORT 2019-06-01 20:36:00-00:00 [facility] ([facility]) Orthopaedic Progress Note REPORT#:[id number] REPORT STATUS: Signed DATE:06/01/19 TIME:2035 PATIENT: JAVY GRANGER UNIT #: [id number] ROOM/BED: [facility] : 84 AGE: 33 SEX: M ATTEND: Kailash Avery MD ADM AUTHOR: Richard Marie MD * ALL edits or amendments must be made on the [employer]/computer document * Subjective Chief complaint: pt in alot of pain but belie ve nl postop for terrible fracture, hopefully better pod#3, needs pain control, and independence with PT Electronically Signed by Richard Marie MD on at 2036 RPT #: [id number] END OF REPORT 2019-06-01 14:24:00-00:00 [id number] [facility] [id number] [place] [address] PATIENT NAME: JAVY GRANGER ADMIT DATE: 9 ACCOUNT NO: [id number] ROOM NO: [facility] AGE: 33 REPORT TYPE: HISTORY AND PHYSICAL SEX: M ADMITTING PHYSICIAN: Brian Avery MD ATTENDING PHYSICIAN: Brian Avery MD ADMISSION DATE: 06/01/2019 PRIMARY CARE PHYSICIAN: Vasu Stone MD in [facility]. CHIEF COMPLAINT: Left knee and left foot pain. HISTORY OF PRESENTING ILLNESS: The patient is a 33-year-old male. He has a past medical history of osteoarthritis and insom angel luis. The patient had fallen around 05/16/2019 and went to a freestanding ER in [place] from where he followed up apparently with orthopedic surgery. At that time, he had a brace applied to the left knee, which was not removed until whenever he came for elective surgery yesterday where Dr. Marie did open reduction and internal fixation of the left tibial plateau. The patient is status post this procedure and is nonweightbearing for the next 3 months ac cording to Dr. Marie. He is met in the room. He is complaining of so me pain 7/10 in his left foot and also 4/10 pain in his left knee. Otherwise, denies an y other complaint. PAST MEDICAL HISTORY: As mentioned above. PAST SURGICAL HISTORY: Tonsillectomy as a child. SOCIAL HISTORY: No smoking, alcohol, or illicit drug use. ALLERGIES: NO KNOWN DRUG ALLERGIES. FAMILY HISTORY: The mom had left knee fracture. HOME MEDICATIONS: I have asked the nurse to upda te the home medications. REVIEW OF SYSTEMS: CONSTITUTIONAL: Negative for fever. Negative for chills. MUSCULOSKELETAL: Positive for pain in the left k nee and left foot. Negative for rash. A 14-point review of system was done and was negative except as mentioned above. PHYSICAL EXAMINATION: VITAL SIGNS: Temperature 36.3, heart rate 100, r espiratory rate of 18, blood pressure 129/85, O2 sat 93% on room air. GENERAL: The patient is awake, alert and oriented x3, in no apparent distress. HEENT: Head is normocephalic, atraumatic. Pupils are equal and reactive to light. PATIENT NAME: JAVY GRANGER [id number] NECK: No cervical adenopathy or thyromegaly. No jugular venous distention. LUNGS: Clear to auscultation bilaterally. No whe ezing or rhonchi. CARDIOVASCULAR: S1 and S2. No murmurs or added s ounds. ABDOMEN: Soft, nontender, and nondistended. No o rganomegaly. EXTREMITIES: No cyanosis or clubbing. He has a b race around his left knee, status post surgery with dressing in [facility]. There is some mild swelling around the left ankle, but is able to move both feet ap propriately without any tenderness in the foot. LABS AND IMAGING: CBC; WBC 1 1.7, hemoglobin 16.2, which is 14.1 today, platelet count of 370. CMP: Sodium 135, potassium 4.0, cr eatinine is 1.0. Vitamin D 8.2. INR is 1.15. X-ray of the left ankle showed some soft tissue swelling with suspected ligamentous injury or sprain. Leann st x-ray showed no acute finding. ASSESSMENT AND PLAN: 1. Complicated left knee fracture. The patient h ad surgery with Dr. Marie yesterday with open reduction and internal fixat ion and he also had repair of the lateral meniscus. At this point, the patient is nonweightbearing for the next 3 months. Physical Therapy has been consulted. The patient's discharge to home is complicated by the fact that he lives in a house that has no room downstairs and he will not b e able to go upstairs because he is nonweightbearing for the next 3 months. Will request inpatient re hab. Pain management as needed while the patient is in the hospital. 2. Leukocytosis. WBC went upfrom 11.7 to 14.7. N o evidence of infection, likely secondary to pain. We will manage his jose martin n as needed. 3. Vitamin D deficiency. This is new for the pat ient's vitamin D level of 8.2. Start the patient on vitamin D 2000 units p er day. 4. Other comorbidities. Resume the patient's cuca e medications and adjust as needed. 5. Deep venous thrombosis prophylaxis. I will st art him on Lovenox for DVT prophylaxis while he is here. Dictated By: Dre Snyder MD WT: HP:LGORDON/THIAGO/TOYA Conf#: [id number]/DID#: [id number] Authenticated and Edited by Dre Snyder MD O n 06/03/19 7:32:21 PM Electronically Signed by Dre Snyder MD on at 1935 PATIENT NAME: JAVY GRANGER [id number] 2019-05-31 17:52:00-00:00 [facility] ([facility]) Post Anesthesia Evaluation REPORT#:[id number] REPORT STATUS: Signed DATE:05/31/19 TIME:1751 PATIENT: JAVY GRANGER UNIT #: [id number] ROOM/BED: [place] [id number] : 84 AGE: 33 SEX: M ATTEND: Kailash Avery MD ADM AUTHOR: Maribel Azar CRNA * ALL edits or amendments must be made on the el [employer]/computer document * Post Anesthesia Evaluation Anes. changes from pre-op eval ORM Surgeries: Surgery Date and Time: 05/31/2019 1030 Proposed Primary Procedure: OPEN REDUCTION INTE RNAL FIXATION LEFT Anesthetic: GETA Date: 05/31/19 Level of consciousness: no change, patient awake , able to answer questions, participate in this eval. Vital signs: Vital Signs: Date Time Temp Pulse Resp B/P B/P Pulse O2 O2 F low FiO2 Mean Ox Delivery Rate 05/31 1615 99 19 168/74 96 05/31 1600 97 49 151/86 93 05/31 1545 36.5 106 25 177/97 95 Room air 05/31 1530 93 17 176/94 95 05/31 1525 87 18 176/86 97 05/31 1520 90 18 166/94 93 05/31 1515 89 20 175/103 94 05/31 1500 86 24 158/99 95 05/31 1455 85 14 156/96 94 05/31 1452 Simple [id number] mask 05/31 1450 85 15 157/107 93 05/31 1445 82 12 151/100 93 05/31 1442 36.3 85 14 156/101 100 Simple 10.000 000 mask 05/31 0909 37.1 89 18 139/89 97 Room air 0.0000 00 Cardiovascular: no change, CV system stable, vit al signs stable Respiratory/Airway: respiratory system stable, m aintains without support, Atrovent neb treatment X 1 given for sats <94% w ith 10L O2 via FM Significant improvement in sats post treatment. sats 97% RA. Pain: adequately controlled, pain med. administe red Hydration: adequate Temp status: greater than 96.8F Presence of N/V: no Anesthesia complications: no Other changes requiring f/u: none Conclusions: no apparent anes. issues Electronically Signed by Maribel Azar CRNA 05/31/19 at 1754 [facility] #: [id number] END OF REPORT 2019-05-31 16:40:00-00:00 [id number] [facility] [id number] [place] [address] PATIENT NAME: JAVY GRANGER ADMIT DATE: 9 ACCOUNT NO: [id number] ROOM NO: [facility] AGE: 33 REPORT TYPE: OPERATIVE REPORT SEX: M ADMITTING PHYSICIAN: Brian Avery MD ATTENDING PHYSICIAN: Brian Avery MD OPERATION DATE: 05/31/2019 PREOPERATIVE DIAGNOSIS: The patient with a bicondylar left tibial plateau, one of the worse I have ever seen, with post erior displacement of both pieces with comminution. POSTOPERATIVE DIAGNOSES: The patient with a bicondylar left tibial plateau, one of the worse I have ever seen, with post erior displacement of both pieces with comminution. PROCEDURES: 1. Open reduction and education intern al fixation of the tibial plateau bicondylar with a combination of a medium-size d lateral plate and then a posterior T-plate because of the posterior condyle on the medial side. 2. Repair of the lateral meniscus, which had kind of detached from the capsule and we pulled it together wi th sutures and then put that on the plate laterally. 3. Placement of the femoral distractor to distra ct it so when we look at the joint, joint surfaces lined up. 4. C-arm was use d throughout the case. SURGEON: Richard Marie MD PRODUCER: Zev Ragland MD ANESTHESIA: General. ESTIMATED BLOOD LOSS: 30 mL. COMPLICATIONS: None. PROCEDURE IN DETAIL: The pat evelin's left leg was sterilely prepped and draped in the usual manner. We went ahead and put a medial ex-fix secondary to posterior medial cominution of joint pretty sure I was going to have to go posteromedially to get the piece that was on the condyle. We started out with skin of the midline incision just on the lateral side and we lifted up the meniscus and that is where we kind of saw that i t was torn off and we put 2 sutures of #1 Vicryl to repair that. We found th e exposed bone and kind of opened that up and unfortunately he had an impac tion within that bone and so we kind of brought that cartilage up with some t raction and then reduced it back to kind of a comminuted area of the midline . We went ahead and put a lateral plate on there with some screws into helen t as well as over to the bicondylar side, but it was anterior to where th e posterior piece PATIENT NAME: JAVY GRANGER [id number] was. We then turned our attention over to the me dial side, did a medial approach, and kind of mobili zed that piece, also used the femoral distractor to bring that piece out and the n placed the plate posteriorly with some screws and this seemed to bring it together fairly nicely. The articular surface, there was a piece that kind of kicked out a little bit , we left that alone. We did copious amount of irrigation, strict hem ostasis, used the C-arm throughout the case to check the screws and make sure that everything was in the good position. The patient had closure wit h just 2-0 vertical nylon secondary to just a lot of swelling and comminution, as I said this was one of the worse that I have seen. The patient was placed in e knee immobilizer, sterile dressing, was extubated, and taken to the recovery room in good condition . Dictated By: Richard Marie MD WT: OP:LGORDON/ABRAHAM/TOYA Conf#: [id number]/DID#: [id number] Authenticated and Edited by Richard Marie MD On 06/01/19 3:29:05 PM Electronically Signed by Richard Marie MD on 1 08/02/18 at 1533 PATIENT NAME: JAVY GRANGER [id number] 2019-05-31 14:33:00-00:00 [facility] ([facility] Brief Op Note REPORT#:[id number] REPORT STATUS: Signed DATE:05/31/19 TIME:1433 PATIENT: JAVY GRANGER UNIT #: [id number] ROOM/BED: [place] [address] : 84 AGE: 33 SEX: M ATTEND: Jazlyn Marie MD ADM AUTHOR: Richard Marie MD * ALL edits or amendments must be made on the el ectronic/computer document * Op/Inv Proc Note - Brief Pre-procedure diagnosis: bicondylar tibial plateau Post-procedure diagnosis: same as pre procedure dx Procedures performed: orif ant and postero medial, ex on and off Primary Surgeon: mayuri Wire Drawer(s): nitish Findings: bicondylar with post fxs and cominution Complications: none Estimated blood loss in ml's: 300cc Specimens removed/altered: cultures Electronically Signed by Richard Marie MD on at 1436 RPT #: [id number] END OF REPORT
--- NOTE | 2022-11-04 19:52 | RAD REPORT ---
EXAM DESCRIPTION: RAD - Lumbar Spine 3 Views - 11/04/2022 7:32 pm CLINICAL HISTORY: low back pain Radiculopathy COMPARISON: No comparisons FINDINGS: Vertebral body heights appear maintained. No compression fracture noted. Disc spaces are m aintained. No spondylolysis or spondylolisthesis. IMPRESSION: Negative study.
--- NOTE | 2022-11-04 19:53 | RAD REPORT ---
EXAM DESCRIPTION: RAD - Sacrum And Coccyx - 11/04/2022 7:32 pm CLINICAL HISTORY: low back pain Radiculopathy COMPARISON: Lumbar Spine 3 Views dated 11/04/2022 FINDINGS: No acute fracture or subluxation seen.
--- NOTE | 2022-11-04 19:54 | RAD REPORT ---
EXAM DESCRIPTION: RAD - Shoulder Right 2 View - 11/04/2022 7:32 pm CLINICAL HISTORY: right shoulder pain COMPARISON: <Comparisons> FINDINGS: Mild arthritic changes noted. No fracture, dislocation or aggressive marrow lesion.
--- NOTE | 2022-11-04 20:32 | ER ---
Nurse's Notes [facility] Name: Campos Sampson Age: 37 yrs Sex: Male : 1985 Arrival Date: 11/04/2022 Time: 17:40 Bed Treatment Private MD: Vasu Stone T Diagnosis: Low back pain Presentation: 11/04 18:16 Chief complaint: Patient states: Tailbone pain that started last night, reports hx of ph back issues, herniated discs. Coronavirus screen: Vaccine status: Patient reports receiving the 2nd dose of the covid vaccine. Ebola Screen: No symptoms or risks identified at this time. Initial Sepsis Screen: Does the patient meet any 2 criteria? No. Patient's initial sepsis screen is negative. Does the patient have a suspected source of infection? No. Patient's initial sepsis screen is negative. Risk Assessment: Do you want to hurt yourself or someone else? Patient reports no desire to harm self or others. Onset of symptoms was November 04, 2022. 18:16 Method Of Arrival: Ambulatory ph 18:16 Acuity: ANGELA 4 ph Historical: - Allergies: 18:20 No Known Drug Allergies; ph - PMHx: 18:20 Chronic pain; Arthritis; Degenerative disc disease; Hypertension; insomnia; ph - Immunization history:: Adult Immunizations unknown. - Social history:: Smoking status: unknown. Screenin:51 [facility] ED Fall Risk Assessment (Adult) History of falling in the last 3 months, lg3 including since admission No falls in past 3 months (0 pts). Abuse screen: Denies threats or abuse. Denies injuries from another. Nutritional screening: No deficits noted. Tuberculosis screening: No symptoms or risk factors identified. Assessment: 19:51 General: Appears in no apparent distress. uncomfortable, Behavior is calm, cooperative. lg3 Pain: Complains of pain in coccyx. Neuro: No deficits noted. Costa Agitation-Sedation Scale (RASS): 0 - Alert and Calm Level of Consciousness is awake, alert, obeys commands, Oriented to person, place, time, situation. Cardiovascular: No deficits noted. Denies chest pain, shortness of breath, Capillary refill < 3 seconds Clubbing of nail beds is absent JVD is absent Patient's skin is warm and dry. Respiratory: No deficits noted. Airway is patent Respiratory effort is even, unlabored, Respiratory pattern is regular, symmetrical. GI: No deficits noted. No signs and/or symptoms were reported involving the gastrointestinal system. Abdomen is round non-distended, obese. : No deficits noted. No signs and/or symptoms were reported regarding the genitourinary system. EENT: No deficits noted. No signs and/or symptoms were reported regarding the EENT system. Derm: No deficits noted. No signs and/or symptoms reported regarding the dermatologic system. Skin is intact, is healthy with good turgor, Skin is dry, Skin is normal. Musculoskeletal: Circulation, motion, and sensation intact. Range of motion: intact in all extremities, Reports pain in coccyx. 20:39 Reassessment: Patient appears in no apparent distress at this time. No changes from lg3 previously documented assessment. Patient and/or family updated on plan of care and expected duration. Pain level reassessed. Patient is alert, oriented x 3, equal unlabored respirations, skin warm/dry/pink. Vital Signs: 18:16 BP 143 / 80; Pulse 81; Resp 18; Temp 98; Pulse Ox 96% on R/A; Weight 168.28 kg; Height ph 6 ft. 0 in. ; 18:16 Body Mass Index 50.32 (168.28 kg, 182.88 cm) ph ED Course: 17:41 Patient arrived in ED. am2 17:42 Vasu Stone MD is Private Physician. am2 18:20 Triage completed. ph 18:21 Arm band placed on Patient placed in waiting room, Patient notified of wait time. ph 18:54 [facility] 18:54 Aravind Daniels MD is Attending Physician. jmm 19:27 Erin Godinez, AWILDA is Primary Nurse. lg3 19:34 Lumbar Spine (3 Views) XRAY In Process Unspecified. EDMS 19:34 Sacrum And Coccyx XRAY In Process Unspecified. EDMS 19:34 Shoulder Right (2 View) XRAY In Process Unspecified. EDMS 19:51 Patient has correct armband on for positive identification. Placed in gown. Bed in low lg3 position. Call light in reach. Side rails up X 1. Door closed. Noise minimized. Warm blanket given. 20:40 No provider procedures requiring assistance completed. Patient did not have IV access lg3 during this emergency room visit. Administered Medications: No medications were administered Medication: 20:40 VIS not applicable for this client. lg3 Outcome: 20:31 Discharge ordered by MD. potter 20:40 Discharged to home ambulatory. lg3 20:40 Condition: stable 20:40 Discharge instructions given to patient, Instructed on discharge instructions, follow up and referral plans. medication usage, Demonstrated understanding of instructions, follow-up care, medications, Prescriptions given X 3. 20:40 Patient left the ED. lg3 Signatures: Dispatcher [employer] EDMS Ariel Boateng PA PA jmm Hall, Patricia, RN RN Dayana Wang [facility] Erin Godinez, AWILDA RN lg3
--- NOTE | 2022-11-04 20:32 | EDPHYS ---
Physician Documentation [facility] Name: Campos Sampson Age: 37 yrs Sex: Male : 1985 Arrival Date: 11/04/2022 Time: 17:40 Bed Treatment Private MD: Vasu Stone T ED Physician Aravind Daniels HPI: 11/04 19:06 This 37 yrs old Male presents to ER via Ambulatory with complaints of Low Back Pain - jmm tailbone pain. 19:06 The patient presents with pain that is acute. The symptoms are located in the coccyx jmm area. The pain does not radiate. Onset: The symptoms/episode began/occurred gradually. This is a 37 year old male with a history of chronic pain, ddd, htn that presents to the ED with complaints of lower back pain which has been ongoing. Mainly to the low back and coccyx. Denies injury. Also complains of pain to the right shoulder. . Historical: - Allergies: 18:20 No Known Drug Allergies; ph - PMHx: 18:20 Chronic pain; Arthritis; Degenerative disc disease; Hypertension; insomnia; ph - Immunization history:: Adult Immunizations unknown. - Social history:: Smoking status: unknown. ROS: 19:06 Constitutional: Negative for fever, chills, and weight loss, Cardiovascular: Negative jmm for chest pain, palpitations, and edema, Respiratory: Negative for shortness of breath, cough, wheezing, and pleuritic chest pain. 19:06 Back: Positive for pain with movement. 19:06 All other systems are negative. Exam: 19:06 Constitutional: This is a well developed, well nourished patient who is awake, alert, jmm and in no acute distress. Head/Face: atraumatic. Eyes: EOMI, no conjunctival erythema appreciated ENT: Moist Mucus Membranes Neck: Trachea midline, Supple Chest/axilla: Normal chest wall appearance and motion. Cardiovascular: Regular rate and rhythm. No edema appreciated Respiratory: Normal respirations, no respiratory distress appreciated Abdomen/GI: Non distended 19:06 Back: low back pain on palpation, no swelling or erythema appreciated. 19:06 Musculoskeletal/extremity: painful abduction noted to the right shoulder, full fuel cell assembler strength, compartments are soft, NVI. 19:06 Skin: Appearance: Color: normal in color. 19:06 Neuro: Orientation: is normal, Mentation: is normal, Memory: is normal. 19:06 Psych: Behavior/mood is pleasant, cooperative. Vital Signs: 18:16 BP 143 / 80; Pulse 81; Resp 18; Temp 98; Pulse Ox 96% on R/A; Weight 168.28 kg; Height ph 6 ft. 0 in. ; 18:16 Body Mass Index 50.32 (168.28 kg, 182.88 cm) ph MDM: 19:06 Patient medically screened. [facility] 11/05 00:11 Differential diagnosis: arthritis, strain, fracture, Herniated disc. Data reviewed: [facility] vital signs, nurses notes. Independent interpretation of the following test(s) in the Emergency Department X-Ray: My interpretation is no fracture appreciated. Counseling: I had a detailed discussion with the patient and/or guardian regarding: the historical points, exam findings, and any diagnostic results supporting the discharge/admit diagnosis, radiology results, the need for outpatient follow up, to return to the emergency department if symptoms worsen or persist or if there are any questions or concerns that arise at home. 11/04 19:12 Order name: Lumbar Spine (3 Views) XRAY; Complete Time: 19:56 [facility] 11/04 19:12 Order name: Sacrum And Coccyx XRAY; Complete Time: 19:56 [facility] 11/04 19:12 Order name: Shoulder Right (2 View) XRAY; Complete Time: 19:56 [facility] Administered Medications: No medications were administered Disposition Summary: 11/04/22 20:31 Discharge Ordered Location: Home [facility] Condition: Stable [facility] Diagnosis - Low back pain [facility] Followup: [facility] - With: Private Physician - When: 2 - 3 days - Reason: Recheck today's complaints, Continuance of care, Re-evaluation by your physician Discharge Instructions: - Discharge Summary Sheet [facility] - Acute Back Pain, Adult [facility] Forms: - Medication Reconciliation Form [facility] - Thank You Letter [facility] - Antibiotic Education [facility] - Prescription Opioid Use [facility] Prescriptions: - Prednisone 20 mg Oral Tablet - take 3 tablets by ORAL route once daily for 5 days; 15 tablet; Refills: 0, [facility] Product Selection Permitted - Zanaflex 4 mg Oral Tablet - take 1 tablet by ORAL route every 8 hours As needed; 20 tablet; Refills: 0, [facility] Product Selection Permitted - Diclofenac Sodium 75 mg Oral Tablet Sustained Release - take 1 tablet by ORAL route 2 times per day; 30 tablet; Refills: 0, Product tariq Selection Permitted Signatures: Dispatcher [employer] Ariel Slater PA PA jmm Hall, Patricia, RN RN ph
[2022-11-04 20:44] VITALS: BP 143/80; TEMP 98; O2SAT 96
== END 2022-11-04 20:40 | disposition home or self-care (01) ==
LOC: ER 17:40
DX: M54.50 Low back pain, unspecified (principal)
CPT/HCPCS: 72100; 72220

== ENCOUNTER 2022-11-12 07:49 | Emergency (ER) | payer SELFPAY ==
--- OUTSIDE RECORDS SUMMARY | 2022-11-12 07:52 | XMS REPORT | Continuity of Care Document ---
:1985 Author Organization [facility] t Address [address]. [address] [place] [address] Care Team Providers Name Role Phone BATSHEVA PHAM NATASHA Attending Clinician Unavailable BATSHEVA PHAM NATASHA Admitting Clinician Unavailable Payers Payer Name Policy Type Policy Number Effective Date Expiration Date S ource MISW MISW [id number] Problems This patient has no known problems. Allergies, Adverse Reactions, Alerts Allergy Allergy Status Severity Reaction(s) Onset Inactive Treating Comm ents Source Name Type Date Date Clinician No Known DA Active U 2018-06 [facility] Allergie 2-13 Clear s 00:00: Maza 00 [facility] Medications This patient has no known medications. Procedures This patient has no known procedures. Encounters Start End Encounter Admission Attending Care Care Encounter Source Date/Time Date/Time Type Type Clinicians Facility Department ID 2022-10-30 2022-10-30 Outpatient [facility] Sammy 15:19:14 15:19:14 [id number] F Grady 2022-10-07 2022-10-07 Outpatient [facility] Sammy 09:58:04 09:58:04 [id number] F Grady 2022-09-02 2022-09-02 Outpatient [facility] Sammy 14:49:39 14:49:39 [id number] F Grady 2019-06-05 2019-06-13 Inpatient 3 MILES PHAM [id number] 19 [facility] 21:20:00 09:15:00 BATSHEVA Flores1 [facility] itation [place] d Results Test Description Test Time Test Comments Results Result Comments Source CULTURE, URINE 2022-10-09 SPECIMEN NUMBER: 13:21:34 [id number] CULTURE, URINE SPECIMEN NUMBER: [id number] SPECIMEN COMMENT: URINE SOURCE: URINE REPORT STATUS: FINAL FINAL REPORT: 10/09/2022 10-50,000 CFU/ML UROGENITAL KRYSTIAN PRESENT NO COMMON PATHOGENS [facility] REFLEX AUTOIMMUNE AB PROFILE 2022-10-09 00:03:52 Test Item Value Reference Range Interpretation Comme nts ANTI-NUCLEAR ANTIBODIES NEGATIVE NEGATIVE Met hodology is Indirect (test code = 3506) Immunoflu orescent Assay (IFA) with a titering system using Tgd3807 cells ( Hep2 cells transfected wit h SS-A/Ro). [place] PATTERN (REPORTED SEE BELOW TITER) (test code = 94128) HOMOGENEOUS (test code = NEGATIVE TITER NEGATIVE 53351) SPECKLED (test code = NEGATIVE TITER NEGATIVE 061274) DENSE FINE SPECKLED (test NEGATIVE TITER NEGATIVE code = 46364) CENTROMERE (test code = NEGATIVE TITER NEGATIVE 922330) COARSE SPECKLED (test code NEGATIVE TITER NEGATIVE = 476955) DISCRETE NUCLEAR DOTS (test NEGATIVE TITER NEGATIVE code = 991467) NUCLEOLAR (test code = NEGATIVE TITER NEGATIVE 612017) NUCLEAR MEMBRANE (test code NEGATIVE TITER NEGATIVE = 238302) CYTO. RETICULAR (DARRELL) NEGATIVE NEGATIVE (test code = 353448) COMMENTS (test code = NONE 990005) METHOD (test code = 25273) (NOTE) TESTING PERFORMED BY [facility] [employer] [facility] NOV A VIEW IFA PLATFORM.THE KS THOD INCLUDES A SCREEN THRESHOL D OF 1:80, DIGITIZED AND C OMPUTER ALGORITHM-MARGY DUSTY INTERPRETATION OF TITERS AND DIGITAL PATTERN S, AND HEp-2 CELL LINE SUBSTRATE. ADDITIONAL UNUSUAL PATTERN S WILL BE GIVEN COMMENTS.FOR MORE INFORMATION, SE E [email or web address].[email or web address] /[facility]-Testing RHEUMATOID FACTOR, [id number] 23:07:35 Test Item Value Reference Range Interpretation Comments RHEUMATOID FACTOR, QUANT (test code <10 IU/ML <14 = 3502) SEDIMENTATION [id number] 11:23:05 Test Item Value Reference Range Interpretation Comments SEDIMENTATION RATE (test code = 2 MM/HOUR 0-15 1017) VITAMIN D, 25 [id number] 10:47:08 Test Item Value Reference Range Interpretation [...] . . . . . NG/ML 30-100 [facility] has important p athology staff changes effecti ve 08/14/2022. New patholo gy staff will provide uninter rupted, excellent patie nt care and clinical consul tation. See URL: [email or web address]. UNLESS OTHERWI SE INDICATED, ALL TESTING PER FORMED AT CLINICAL PATHOL [facility] [employer]ceptions, [facility]. [address] [place] [address] 4 HOUSING OFFICER: Taty BROWN [id number] CAP ACCREDITATION N O. [id number] C-REACTIVE [id number] 07:03:35 Test Item Value Reference Range Interpretation Comments C-REACTIVE PROTEIN (test code = 1.5 MG/DL <0.5 H 3513) URIC [id number] 04:53:18 Test Item Value Reference Range Interpretation Comments URIC ACID (test code = 2233) 11.8 MG/DL 3.7-8.0 H - CT LOWER EXTRM W/O C [id number] 16:10:00 Name: JAVY GRANGER [facility] : 1985 Age/S: 33 / M [address] Unit #: [id number] Loc: [place] [address] Phys: Dre Snyder MD Acct: [id number] Dis Date: Status: ADM IN PHONE#: [phone] Exam Date: 06/04/2019 1515 FAX #: Reason: pain left ankle and foot EXAMS: CPT: [id number] [place] L[place] EXTR[place] W/[place] [address] EXAM: - CT LOWER EXTRM W/O C [...] (1610) Kate.CB5 Orig Print D/T: S: 06/04/2019 (2375) PAGE 1 Signed ReportCBC W/AUTO DIFF 2019-06-04 [...] CONSISTA NT WITH AUTO DIFFERENTIAL. CBC W/AUTO [id number] 07:54:00 Test Item Value Reference Range Interpretation [...] code = DIFF/SCN CRITERIA MDIFF) BASIC METABOLIC [id number] 07:46:00 Test Item Value Reference Range Interpretation [...] code = CA) 8.8 MG/DL 8.5-10.1 N [id number] 07:46:00 Test Item Value Reference Range Interpretation Comments MAGNESIUM (test code = MAG) 2.1 MG/DL 1.8-2.4 N HGB [id number] 09:03:00 Test Item Value Reference Range Interpretation Comments HEMOGLOBIN (test code = HGB) 12.8 G/DL 12.3-15.9 N HEMATOCRIT (test code = HCT) 38.7 % 35.8-46.7 N CBC W/AUTO [id number] 06:02:00 Test Item Value Reference Range Interpretation [...] code YES DIFF/SCN CRITERIA = MDIFF) WBC [id number] 06:02:00 Test Item Value Reference Range Interpretation Comments SEGMENTED NEUTROPHILS (test code = SEG) % 40-75 LYMPHOCYTE (test code = LYMPH) % 12.6-43.5 CBC W/AUTO [id number] 06:02:00 Test Item Value Reference Range Interpretation [...] code YES DIFF/SCN CRITERIA = MDIFF) WBC [id number] 06:02:00 Test Item Value Reference Range Interpretation [...] THOUSAND ADEQUATE code = PLTEST) CBC W/AUTO [id number] 06:02:00 Test Item Value Reference Range Interpretation [...] code YES DIFF/SCN CRITERIA = MDIFF) WBC [id number] 06:02:00 Test Item Value Reference Range Interpretation Comments SEGMENTED NEUTROPHILS (test code = SEG) % 40-75 LYMPHOCYTE (test code = LYMPH) % 12.6-43.5 BASIC METABOLIC [id number] 05:56:00 Test Item Value Reference Range Interpretation [...] CA) 8.7 MG/DL 8.5-10.1 N CBC W/AUTO [id number] 05:47:00 Test Item Value Reference Range Interpretation [...] DIFF/SCN CRITERIA MDIFF) - XR FLUOROSCOPY 0-60 [id number] 14:44:00 Name: JAVY GRANGER [facility] : 1985 Age/S: 33 / M [address] Unit #: [id number] Loc: [place] [address] Phys: Richard Marie MD Acct: [id number] Dis Date: Status: ADM IN PHONE #: [phone] Exam Date: 05/31/2019 1430 FAX #: Reason: ORIF LEFT TIBIAL PLATEAU FX EXAMS: CPT: [id number] XR FLUOROSCOPY 0-60 MIN 86089 Fluoro Time: 227 SEC DAP (Gy m2): [...] PAGE 1 Signed Report [facility]: [facility] [place] [facility] 1985 Age/S: 33 / M [address] Unit #: [id number] Loc: [place] [address] Phys: Richard Marie MD Acct: [id number] Dis Date: Status: ADM IN PHONE #: [phone] Exam Date: 05/31/2019 1430 FAX #: Reason: ORIF LEFT TIBIAL PLATEAU FX EXAMS: CPT: [id number] XR FLUOROSCOPY 0-60 MIN 92306 Fluoro Time: 227 SEC DAP (Gy m2): Air Kerma (mGy): (Continued) Technologist: Anabelle Holland, RT(R); Fartun Gray, RT(R) Trnokb Date/Time: 05/31/2019 (1444) [email or web address] Orig Print D/T: S: 05/31/2019 (7697) PAGE 2 Signed Report- XR ANKLE 3+V [id number] 09:42:00 Name: JAVY GRANGER [facility] : 1985 Age/S: 33 / M [address] Unit #: [id number] Loc: [place] [address] Phys: Richard Marie MD Acct: [id number] Dis Date: Status: REG SD PHONE #: [phone] Exam Date: 05/31/2019 0920 FAX #: Reason: RULE OUT INJURY EXAMS: CPT: [id number] XRANKLE 3+[place] [address] Fluoro Time: DAP (Gy m2): Air Kerma [...] MD PAGE 1 Signed Report Name: JAVY GRNAGER [place] : 1985 Age/S: 33 / M [address] Unit #: [id number] Loc: [place] [address] Phys: Richard Marie MD Acct: [id number] Dis Date: Status: [place] [facility] [place] #: [phone] Exam Date: 05/31/2019919 FAX #: Reason: RULE OUT INJURY EXAMS: CPT: [id number] XR ANKLE 3+[place] [address] Fluoro Time: DAP (Gy m2): Air Kerma (mGy): (Continued) Technologist: Anabelle Holland, RT(R); Fartun Gray, RT(R) Trnscb Date/Time: 05/31/2019 (09) [email or web address] Orig Print D/T: S: 05/31/2019 (3837) PAGE 2 Signed ReportBASI METABOLIC [id number] 06:09:00 Test Item Value Reference Range Interpretation [...] CA) 9.5 MG/DL 8.5-10.1 N VITAMIN D [id number] 06:09:00 Test Item Value Reference Range Interpretation Comments VITAMIN D 8.2 ng/mL 30.0-100.0 A Vitamin D defic iency has 25-HYDROXY (test been define d by the code = VITD25) [facility] edicine and an Endocrine So formerly [facility], 1928–1983 practice guidel ine as alevel of serum 25-OH vitamin D less than 20 ng/mL (1,2).The Endocrine Society went on to further define vitamin Dinsufficiency as a level between 21 and 29 ng/mL (2).1. IOM (Ins titute of Medicine). 2010 . Dietary reference intak es for calcium and D. Song [place]: [employer] .2. Pratibha MF, Fernando GREGG, Ella chang GORDON, et al. Evaluation, treatment, and prevention of vitamin D de ficiency: an Endocrine So formerly [facility], 1928–1983 clinical practi ce guideline. JCEM . 2010; 96(5):1911-30.P erformed At: [facility] [address] [place], [place] [id number] Richard King MD Ph:[phone] CBC W/AUTO [id number] 18:14:00 Test Item Value Reference Range Interpretation [...] MDIFF) CONSISTA NT WITH AUTO DIFFERENTIAL. SED [id number] 18:14:00 Test Item Value Reference Range Interpretation Comments SED RATE (test code = SEDW) 22 mm/hr 0-15 H CBC W/AUTO [id number] 14:51:00 Test Item Value Reference Range Interpretation [...] (test code = DIFF/SCN CRITERIA MDIFF) SED [id number] 14:51:00 Test Item Value Reference Range Interpretation Comments SED RATE (test code = SEDW) 22 mm/hr 0-15 H URINALYSIS [id number] 14:05:00 Test Item Value Reference Range Interpretation [...] LEUU) Urine Specimen Type: Clean CatchC REACTIVE [id number] 13:57:00 Test Item Value Reference Range Interpretation Comments C REACTIVE PROTEIN (test code = 1.190 MG/DL 0.000-0.3 H CRP) PROTHROMBIN [id number] 13:41:00 Test Item Value Reference Range Interpretation Comments PT PATIENT (test code = PTP) 13.2 SECONDS 9.3-12.9 H INTERNATIONAL NORMAL RATIO 1.16 INR Unit 0.8-1.2 N (test code = INR) THROMBOPLASTIN TIME [id number] 13:41:00 Test Item Value Reference Range Interpretation Comments THROMBOPLASTIN TIME PARTIAL 29.8 SECONDS 26-35 N (test code = PTT) BASIC METABOLIC [id number] 13:39:00 Test Item Value Reference Range Interpretation [...] CA) 9.5 MG/DL 8.5-10.1 N VITAMIN D [id number] 13:39:00 Test Item Value Reference Range Interpretation Comments VITAMIN D 25-HYDROXY (test code = VITD25) CBC W/AUTO [id number] 13:22:00 Test Item Value Reference Range Interpretation [...] (test code = DIFF/SCN CRITERIA MDIFF) SED [id number] 13:22:00 Test Item Value Reference Range Interpretation Comments SED RATE (test code = SEDW) mm/hr 0-15 - XR CHEST 2 [id number] 12:33:00 Name: JAVY GRANGER [facility] : 1985 Age/S: 33 / M [address] Unit #: [id number] Loc: [place] [address] Phys: Richard Marie MD Acct: [id number] Dis Date: Status: PRE SDC PHONE #: [phone] Exam Date: 05/28/2019 1224 FAX #: Reason: PREOP EXAMS: CPT: [id number] XR CHEST 2 Q81339 Fluoro Time: DAP (Gy m2): Air Kerma (mGy): LOCATION: T18 EXAM: CHEST 2 VIEWS INDICATION: PREOPCOMPARISON: None. TECHNIQUE: PA and lateral chest radiographs. FINDINGS: Lungs are clear bilaterallywithout effusion. Heart and mediastinum are normal in size and contour. Bones and peripheral soft tissues are unremarkable. IMPRESSION: Lungs are clear. No acute abnormality. at 8136 Reported and signed by: Rohan Grissom M.D. CC: Vasu Stone MD; Richard Marie MD PAGE 1 Signed Report Name: JAVY GRANGER [facility] : 1985 Age/S: 33 / M [address] Unit #: [id number] Loc: [place] [address] Phys: Richard Marie MD Acct: [id number] Dis Date: Status: PRE SDC PHONE #: [phone] Exam Date: 05/28/2019 1224 FAX #: Reason: PREOP EXAMS: CPT: [id number] XR CHEST 2 V 65845 Fluoro Time: DAP (Gy m2): Air Kerma (mGy): (Continued) Technologist: Anabelle Holland, RT(R) Trnscb Date/Time: 05/28/2019 (1233) [email or web address] Orig Print D/T: S: 05/28/2019 (1236) PAGE 2 Signed Report Notes Date/Time Note Provider Source 2019-06-14 07:36:00-00:00 [facility] ([facility]) Hospitalist Discharge Summary REPORT#:[id number] REPORT STATUS: Signed DATE:06/14/19 TIME:36 PATIENT: JAVY GRANGER UNIT #: [id number] ROOM/BED: [place] [address] : [birth year] AGE: 33 SEX: M ATTEND: [...] and went to a freestanding ER in [facility] where he followed up apparently with orthopedic [...] MD on 05/18 at 0739 RPT #: [id number] END OF REPORT 2019-06-05 11:40:00-00:00 [facility] ([facility] Hospitalist Progress Note REPORT#:[id number] REPORT STATUS: Signed DATE:06/05/19 TIME:1140 PATIENT: JAVY GRANGER UNIT #: [id number] ROOM/BED: [place] [address] : [birth year] AGE: 33 SEX: M ATTEND: [...] consider home with home health with nursing home administrator for bed baths and assistance at home [...] accepted at inpatient rehab Electronically Signed by Dre Snyder MD on 05/17 07/04 at 1141 RPT #: [id number] END OF REPORT 2019-06-04 15:48:00-00:00 [facility]) Hospitalist Progress Note REPORT#:[id number] REPORT STATUS: Signed DATE:06/04/19 TIME:1547 PATIENT: JAVY GRANGER UNIT #: [id number] ROOM/BED: [place] [address] : [birth year] AGE: 33 SEX: M ATTEND: Kailash Avery MD ADM AUTHOR: Dre Snyder MD * ALL edits or amendments must be made on the [employer]/computer document * Subjective Chief Complaint: Pain L [...] consider home with home health with nursing home administrator for bed baths and assistance at home [...] MD on 05/17 at 1554 RPT #: [id number] END OF REPORT 2019-06-03 18:23:00-00:00 [facility] ([facility]) Hospitalist Progress Note REPORT#:[id number] REPORT STATUS: Signed DATE:06/03/19 TIME:1822 PATIENT: JAVY GRANGER UNIT #: [id number] ROOM/BED: [place] [address] : [birth year] AGE: 33 SEX: M ATTEND: Kailash Avery MD ADM AUTHOR: Dre Snyder MD * ALL edits or amendments must be made on the el [employer]/computer document * Subjective Chief Complaint: Pain about [...] consider home with home health with nursing home administrator for bed baths and assistance at home [...] Snyder MD on 05/16 03/04 at 1824 [facility] #: [id number] END OF REPORT 2019-06-02 12:25:00-00:00 [facility] Hospital[facility] Progress Note REPORT#:[id number] REPORT STATUS: Signed DATE:06/02/19 TIME:1225 PATIENT: JAVY GRANGER UNIT #: [id number] ROOM/BED: [place] [address] : [birth year] AGE: 33 SEX: M ATTEND: Kailash Avery MD ADM AUTHOR: Dre Snyder MD * ALL edits or amendments must be made on the [employer]/computer document * Subjective Chief Complaint: Pain about [...] consider home with home health with nursing home administrator for bed baths and assistance at home [...] on 05/16 02/01 at 1228 RPT #: [id number] END OF REPORT 2019-06-01 20:36:00-00:00 [facility] ([facility]) Orthopaedic Progress Note REPORT#:[id number] REPORT STATUS: Signed DATE:06/01/19 TIME:2035 PATIENT: JAVY GRANGER UNIT #: [id number] ROOM/BED: [facility]-1 : 84 AGE: 33 SEX: M ATTEND: Kailash Avery MD ADM AUTHOR: Richard Marie MD * ALL edits or amendments must be made on the [employer]/computer document * Subjective Chief complaint: pt in alot of pain but belie ve nl postop for terrible fracture, hopefully better pod#3, needs pain control, and independence with PT Electronically Signed by Richard Marie MD on at 2036 RPT #: [id number] END OF REPORT 2019-06-01 14:24:00-00:00 [id number] [facility] [address] [place] [address] PATIENT NAME: JAVY GRANGER ADMIT DATE: 9 ACCOUNT NO: [id number] ROOM NO: [facility] AGE: 33 REPORT TYPE: HISTORY AND PHYSICAL SEX: M ADMITTING PHYSICIAN: Brian Avery MD ATTENDING PHYSICIAN: Brian Avery MD ADMISSION DATE: 06/01/2019 PRIMARY CARE PHYSICIAN: Vasu Stone MD in [facility]. CHIEF COMPLAINT: Left knee and left foot pain. HISTORY OF PRESENTING ILLNESS: The patient is a 33-year-old male. He has a past medical history of osteoarthritis and insom angel luis. The patient had fallen around 05/16/2019 and went to a freestanding ER in [place] from where he followed up apparently with [...] knee, status post surgery with dressing in [facility]. There is some mild swelling around the [...] By: Dre Snyder MD WT: HP:LGORDON/THIAGO/TOYA Conf#: [id number]/DID#: [id number] Authenticated and Edited by Dre Snyder MD O n 06/03/19 7:32:21 PM Electronically Signed by Dre Snyder MD on at 1935 PATIENT NAME: JAVY GRANGER [id number] 2019-05-31 17:52:00-00:00 [facility] ([facility]) Post Anesthesia Evaluation REPORT#:[id number] REPORT STATUS: Signed DATE:05/31/19 TIME:1751 PATIENT: JAVY GRANGER UNIT #: [id number] ROOM/BED: [place] [address] : [birth year] AGE: 33 SEX: M ATTEND: Kailash Avery MD ADM AUTHOR: Maribel Azar CRNA * ALL edits or amendments must be made on the el [employer]/computer document * Post Anesthesia Evaluation Anes. changes [...] 85 14 156/96 94 05/31 1452 Simple 10.816420 mask 05/31 1450 85 15 157/107 93 [...] by Maribel Azar CRNA 05/31/19 at 1754 [facility] #: [id number] END OF REPORT 2019-05-31 16:40:00-00:00 [id number] [facility] [address] [place] [address] PATIENT NAME: JAVY GRANGER ADMIT DATE: 9 ACCOUNT NO: [id number] ROOM NO: [facility] AGE: 33 REPORT TYPE: OPERATIVE REPORT SEX: [...] with comminution. PROCEDURES: 1. Open reduction and university internship al fixation of the tibial plateau bicondylar [...] throughout the case. SURGEON: Richard Marie MD CERTIFIED JUVENILE PROBATION OFFICER: Zev Ragland MD ANESTHESIA: General. ESTIMATED BLOOD [...] By: Richard Marie MD WT: OP:LGORDON/ABRAHAM/TOYA Conf#: [id number]/DID#: [id number] Authenticated and Edited by Richard Marie MD On 06/01/19 3:29:05 PM Electronically Signed by Richard Marie MD on 1 08/02/18 at 1533 PATIENT NAME: JAVY GRANGER [id number] 2019-05-31 14:33:00-00:00 [facility] ([facility]) Brief Op Note REPORT#:[id number] REPORT STATUS: Signed DATE:05/31/19 TIME:1433 PATIENT: JAVY GRANGER UNIT #: [id number] ROOM/BED: [place] [address] : [birth year] AGE: 33 SEX: M ATTEND: Jazlyn Marie MD ADM AUTHOR: Richard Marie MD * ALL edits or amendments must be made on the el [employer]ronic/computer document * Op/Inv Proc Note - Brief Pre-procedure diagnosis: bicondylar tibial plateau Post-procedure diagnosis: same as pre procedure dx Procedures performed: orif ant and postero medial, ex on and off Primary Surgeon: mayuri Industrial Conveyor Belt Repairer(s): nitish Findings: bicondylar with post fxs and cominution Complications: none Estimated blood loss in ml's: 300cc Specimens removed/altered: cultures Electronically Signed by Richard Marie MD on at 1436 RPT #: [id number] END OF REPORT
[2022-11-12 08:36] LABS: Absolute Lymphocytes (CBC) 2.2 K/uL (0.7-4.9); Hematocrit 43.9 % (39.6-49.0); Lymphocytes % 14.6 % (15.3-44.8); MCV 86.1 fL (80-100); MPV 9.1 fL (7.6-11.3); RBC Red Blood Cell Count 5.09 M/uL (4.33-5.43)
[2022-11-12 08:55] LABS: Troponin High Sensitivity 3.5 pg/mL (<58.9)
[2022-11-12 09:01] LABS: Magnesium 2.3 mg/dL (1.6-2.4); Potassium 4.1 mEq/L (3.5-5.1)
--- NOTE | 2022-11-12 09:28 | RAD REPORT ---
EXAM DESCRIPTION: Niki Single View11/12/2022 8:50 am CLINICAL HISTORY: SWELLING COMPARISON: No comparisons TECHNIQUE: Portable AP view of the chest. FINDINGS: The lungs are clear. Decreased inspiratory effort limits evaluation. No pneumothorax or ef fusion. The cardiomediastinal contours are unremarkable. IMPRESSION: No acute cardiopulmonary process.
[2022-11-12 09:35] LABS: Blood Morphology Comment NOT SEEN (NOT SEEN); Platelet Estimate ADEQ; White Blood Cell Scan OK (OK)
--- NOTE | 2022-11-12 09:54 | ER ---
Nurse's Notes [facility] Name: Campos Sampson Age: 37 yrs Sex: Male : 1985 Arrival Date: 11/12/2022 Time: 07:49 Bed 17 Private MD: Diagnosis: Edema, unspecified;Chronic pain, not elsewhere classified-back pain Presentation: 11/12 07:57 Chief complaint: Mid back pain that radiates to legs and bilateral leg swelling x hb years, worse over the last week. Also reports bleeding from right leg this morning, not bleeding at this time. Coronavirus screen: At this time, the client does not indicate any symptoms associated with coronavirus-19. Ebola Screen: No symptoms or risks identified at this time. Initial Sepsis Screen: Does the patient meet any 2 criteria? No. Patient's initial sepsis screen is negative. Does the patient have a suspected source of infection? No. Patient's initial sepsis screen is negative. Risk Assessment: Do you want to hurt yourself or someone else? Patient reports no desire to harm self or others. Onset of symptoms is unknown. 07:57 Method Of Arrival: Ambulatory hb 07:57 Acuity: ANGELA 3 hb Historical: - Allergies: 07:58 No Known Drug Allergies; hb - PMHx: 07:58 Arthritis; Chronic pain; Degenerative disc disease; Hypertension; insomnia; hb - Immunization history:: Adult Immunizations up to date. - Social history:: Smoking status: . Screenin:10 [facility] ED Fall Risk Assessment (Adult) History of falling in the last 3 months, iw including since admission. Abuse screen: Denies threats or abuse. Denies injuries from another. Nutritional screening: No deficits noted. Tuberculosis screening: No symptoms or risk factors identified. Assessment: 09:06 General: Appears in no apparent distress. Behavior is calm, cooperative. Pain: iw Complains of pain in back, right arm, left arm, right leg and left leg. Neuro: Level of Consciousness is awake, alert, obeys commands, Oriented to person, place, time, situation, Moves all extremities. Full function. Cardiovascular: Cardiovascular: Rhythm is regular. Respiratory: Respiratory effort is even, unlabored, Respiratory pattern is regular, symmetrical. GI: Abdomen is non-distended. Vital Signs: 07:59 BP 183 / 114; Pulse 72; Resp 20; Temp 97.7(TE); Pulse Ox 97% on R/A; Weight 168.28 kg; hb Height 6 ft. 0 in. ; Pain 5/10; 08:52 BP 170 / 109; Pulse 74; Resp 16; Pulse Ox 96% on R/A; iw 07:59 Body Mass Index 50.32 (168.28 kg, 182.88 cm) hb 07:59 Pain Scale: Adult hb ED Course: 07:50 Patient arrived in ED. am2 07:53 Anabelle Gomez FNP-C is PHCP. kb 07:53 Cole Sarah MD is Attending Physician. kb 07:58 Triage completed. hb 07:58 Arm band placed on. hb 07:59 Lauren Mares, RN is Primary Nurse. iw 08:52 XRAY Chest (1 view) In Process Unspecified. EDMS Administered Medications: 10:15 Drug: Decadron - Dexamethasone IVP 10 mg Route: IVP; Site: right antecubital; iw 10:15 Drug: Ketorolac IVP 15 mg Route: IVP; Site: right antecubital; iw Outcome: 09:54 Discharge ordered by . kb 10:27 Patient left the ED. hb Signatures: Dispatcher [employer] EDMS Anabelle Gomez FNP-C FNP-Lauren Chase, RN RN Su Zhu RN RN Dayana Wang am2 Corrections: (The following items were deleted from the chart) 08:01 07:57 Chief complaint: Mid back pain that radiates to legs x years, worse over the last hb week. Also reports bleeding from right leg this morning, not bleeding at this time. hb
--- NOTE | 2022-11-12 09:54 | EDPHYS ---
Physician Documentation [facility] Name: Campos Sampson Age: 37 yrs Sex: Male : 1985 Arrival Date: 11/12/2022 Time: 07:49 Bed 17 Private MD: ED Physician Cole Sarah HPI: 11/12 08:29 This 37 yrs old Male presents to ER via Ambulatory with complaints of Back Pain, kb tingling extremities, thigh problem. 08:29 The patient presents with pain that is chronic. The symptoms are located in the kb thoracic area and lumbar area. Onset: The symptoms/episode began/occurred this pain has been going on for years, but seems worse over the last few weeks. . The pain does not radiate. Associated signs and symptoms: The patient has no apparent associated signs or symptoms. The problem was sustained from a chronic condition. Modifying factors: The patient symptoms are alleviated by nothing, the patient symptoms are aggravated by any movement. Severity of symptoms: At their worst the symptoms were moderate, in the emergency department the symptoms are unchanged. The patient has experienced similar episodes in the past. The patient has not recently seen a physician. Pt reports pain to thoracic and lumbar spine that is chronic and due to degenerative disc disease. States the pain has been worse over the past few weeks and hasn't had a MRI in a long time so he wanted to get that checked. Also reports he had a spot on his thigh that started bleeding this morning. States he used to have this pretty frequently and Dr Stone put him on torsemide for fluid retention. . Historical: - Allergies: 07:58 No Known Drug Allergies; hb - PMHx: 07:58 Arthritis; Chronic pain; Degenerative disc disease; Hypertension; insomnia; hb - Immunization history:: Adult Immunizations up to date. - Social history:: Smoking status: . ROS: 08:11 Constitutional: Negative for fever, chills, and weight loss. kb 08:11 Back: Positive for pain at rest, pain with movement, of the thoracic area and lumbar area. 08:11 MS/extremity: Positive for bleeding from a small opening on medial right thigh. 08:11 All other systems are negative. Exam: 08:11 Constitutional: This is a well developed, well nourished patient who is awake, alert, kb and in no acute distress. Head/Face: Normocephalic, atraumatic. ENT: Moist Mucous membranes Respiratory: Respirations even and unlabored. No increased work of breathing. Talking in full sentences Abdomen/GI: Soft, non-tender. No distention Skin: Warm, dry with normal turgor. Normal color. MS/ Extremity: Pulses equal, no cyanosis. Neurovascular intact. Full, normal range of motion. Neuro: Awake and alert, GCS 15, oriented to person, place, time, and situation. Moves all extremities. Normal gait. 08:11 Cardiovascular: Rate: normal, Rhythm: regular, Edema: pedal edema, that is mild, that is moderate. 08:11 Back: pain, that is moderate, of the thoracic area and lumbar area, ROM is painful, normal spinal alignment noted. 09:16 ECG was reviewed by the Attending Physician. kb Vital Signs: 07:59 BP 183 / 114; Pulse 72; Resp 20; Temp 97.7(TE); Pulse Ox 97% on R/A; Weight 168.28 kg; hb Height 6 ft. 0 in. ; Pain 5/10; 08:52 BP 170 / 109; Pulse 74; Resp 16; Pulse Ox 96% on R/A; iw 07:59 Body Mass Index 50.32 (168.28 kg, 182.88 cm) hb 07:59 Pain Scale: Adult hb MDM: 07:54 Patient medically screened. kb 08:13 Data reviewed: vital signs, nurses notes. kb 10:02 Differential diagnosis: chronic back pain, CHF, peripheral edema. Counseling: I had a kb detailed discussion with the patient and/or guardian regarding: the historical points, exam findings, and any diagnostic results supporting the discharge/admit diagnosis, lab results, radiology results, the need for outpatient follow up, a family practitioner, to return to the emergency department if symptoms worsen or persist or if there are any questions or concerns that arise at home. 11/12 08:03 Order name: Basic Metabolic Panel; Complete Time: 09:02 kb 11/12 08:03 Order name: CBC with Diff; Complete Time: 09:44 kb 11/12 08:03 Order name: Magnesium; Complete Time: 09:02 kb 11/12 08:03 Order name: NT PRO-BNP; Complete Time: 09:02 kb 11/12 08:03 Order name: Troponin HS; Complete Time: 09: kb 11/12 09:36 Order name: CBC Smear Scan; Complete Time: 09:44 EDMS 11/12 08:03 Order name: XRAY Chest (1 view); Complete Time: 09:44 kb 11/12 08:03 Order name: EKG; Complete Time: 08:04 kb 11/12 08:03 Order name: Cardiac monitoring; Complete Time: 08:47 kb 11/12 08:03 Order name: EKG - Nurse/Tech; Complete Time: 08:47 kb 11/12 08:03 Order name: IV Saline Lock; Complete Time: 08:47 kb 11/12 08:03 Order name: Labs collected and sent; Complete Time: 08:47 kb 11/12 08:03 Order name: O2 Per Protocol; Complete Time: 08:47 kb 11/12 08:03 Order name: O2 Sat Monitoring; Complete Time: 08:47 kb EC:16 Rate is 67 beats/min. Rhythm is regular. QRS Keno is Normal. AL interval is normal at kb 176 msec. QRS interval is normal at 100 msec. QT interval is normal at 437 msec. Administered Medications: 10:15 Drug: Decadron - Dexamethasone IVP 10 mg Route: IVP; Site: right antecubital; iw 10:15 Drug: Ketorolac IVP 15 mg Route: IVP; Site: right antecubital; iw Disposition: 17:05 Co-signature as Attending Physician, Cole Sarah MD I reviewed the patient's care rn provided by the Advanced Practice Provider and agree with the diagnosis and treatment plan. Disposition Summary: 11/12/22 09:54 Discharge Ordered Location: Home kb Condition: Stable kb Diagnosis - Edema, unspecified kb - Chronic pain, not elsewhere classified - back pain kb Followup: kb - With: Emergency Department - When: As needed - Reason: Worsening of condition Followup: kb - With: Private Physician - When: 2 - 3 days - Reason: Recheck today's complaints, Continuance of care, Re-evaluation by your physician Discharge Instructions: - Discharge Summary Sheet kb - Chronic Back Pain, Zajc-fr-Zmae kb - Peripheral Edema kb - Managing Chronic Back Pain kb Forms: - Medication Reconciliation Form kb - Thank You Letter kb - Antibiotic Education kb - Prescription Opioid Use kb Prescriptions: - Prednisone 20 mg Oral Tablet - take 1 tablet by ORAL route once daily for 5 days; 5 tablet; Refills: 0, kb Product Selection Permitted - orphenadrine citrate 100 mg Oral Tablet Sustained Release - take 1 tablet by ORAL route 2 times per day As needed; 20 tablet; Refills: 0, kb Product Selection Permitted Signatures: Dispatcher [employer] Anabelle Chavez, ROMA-C STULL INSTALLER-Lauren Chase, Cole Solo RN, MD MD rn Baxter, Heather, RN RN
[2022-11-12] MEDS ORDERED: KETOROLAC 30 MG/ML INJ ONE (10:18)
[2022-11-12] MEDS ORDERED: dexAMETHasone 10 MG/ML VIAL ONE (10:18)
[2022-11-12 10:39] VITALS: TEMP 97.7
[2022-11-12 10:41] VITALS: BP 170/109; O2SAT 96
--- NOTE | 2022-11-13 14:39 | EKG ---
Test Date: 2022-11-12 Test Time: 08:20:16 Mechatronics Engineer: ODILON MEASUREMENT RESULTS: Intervals: Rate: 67 CO: 176 QRSD: 100 QT: 414 QTc: 437 Camby: P: 64 CO: 176 QRS: 19 T: 75 INTERPRETIVE STATEMENTS: Normal sinus rhythm Low voltage QRS Borderline ECG No previous ECG available for comparison Electronically Signed On 11-13-22 14:37:47 CDT by Corky Piedra
== END 2022-11-12 10:27 | disposition home or self-care (01) ==
LOC: ER 07:49
DX: R60.9 Edema, unspecified (principal); G89.29 Other chronic pain; M54.9 Dorsalgia, unspecified
CPT/HCPCS: 36415; 71045; 80048; 83735; 83880; 84484; 85025; 93005; 96374; 96375; 99284; J1100

== ENCOUNTER 2023-04-06 13:30 | Emergency (ER) | payer SELFPAY ==
--- OUTSIDE RECORDS SUMMARY | 2023-04-06 13:35 | XMS REPORT | Continuity of Care Document ---
:1985 Author Organization [facility] t Address [address] [place] [address] Care Team Providers Name Role Phone BATSHEVA PHAM NATASHA Attending Clinician Unavailable BATSHEVA PHAM NATASHA Admitting Clinician Unavailable Payers Payer Name Policy Type Policy Number Effective Date Expiration Date S ource MISW MISW [id number] Problems This patient has no known problems. Allergies, Adverse Reactions, Alerts Allergy Allergy Status Severity Reaction(s) Onset Inactive Treating Comm ents Source Name Type Date Date Clinician No Known DA Active U 2018-06 [facility] Allergie 2-13 Clear s 00:00: Maza 00 [facility] Medications This patient has no known medications. Procedures This patient has no known procedures. Encounters Start End Encounter Admission Attending Care Care Encounter Source Date/Time Date/Time Type Type Clinicians Facility Department ID 2023-01-20 2023-01-[address] [facility] [id number] Sammy 08:07:07 08:07:07 [id number] F Grady 2022-12-16 2022-12-16 Outpatient [facility] [id number] Sammy 14:20:46 14:20:46 [id number] F Grady 2022-11-25 2022-11-25 Outpatient [facility] [id number] Sammy 14:54:03 14:54:03 [id number] F Grady 2022-11-18 2022-11-18 [place] [id number] Sammy 14:10:53 14:10:53 [id number] F Naguabo 2022-11-13 2022-11-13 Outpatient [facility] Sammy 14:59:51 14:59:51 [id number] F Naguabo 2022-10-30 2022-10-30 Outpatient [facility] Sammy 15:19:14 15:19:14 [id number] F Naguabo 2022-10-07 2022-10-07 Outpatient [facility] Sammy 09:58:04 09:58:04 [id number] F Naguabo 2022-09-02 2022-09-02 Outpatient [facility] Sammy 14:49:39 14:49:39 [id number] F Naguabo 2019-06-05 2019-06-13 Inpatient 3 HELDER PHAMPL MARILU [id number] [facility] 21:20:00 09:15:00 BATSHEVA [facility] itation Gemma noyola Results Test Description Test Time Test Comments Results Result Comments Source HEMOGLOBIN A1c 2023-01-21 04:08:12 Test Item Value Reference Range Interpretation Comme nts HEMOGLOBIN A1c (test code = 5.3 % 4.2-5.6 UNLESS OTHERWISE INDICATED, ALL 25902) TESTING PERFORM ED AT CLINICAL PATHOLOGY [facility]. [address] [place] [address] FINANCE LECTURER: KEVIN NDIAYE M.D. IA NUMBER [id number] CAP ACCREDITATION N O. [id number] CULTURE, [id number] 13:21:34SPECIMEN NUMBER: [id number] CULTURE, URINE SPECIMEN NUMBER: [id number] SPECIMEN COMMENT: URINE SOURCE:URINE REPORT STATUS: FINAL FINAL REPORT: 10/09/2022 10-50,000 CFU/ML UROGENITAL KRYSTIAN PRESENT NO COMM ON PATHOGENSANA REFLEX AUTOIMMUNE AB [id number] 00:03:52 Test Item Value Reference Range Interpretation Comments ANTI-NUCLEAR NEGATIVE NEGATIVE Methodology is ANTIBODIES (test Indirect code = 3506) Immunofluoresce nt Assay (IFA) with a [employer] system using He p2000 cells (Hep2 rony ls transfected wit h SS-A/Ro). [place] PATTERN SEE BELOW (REPORTED TITER) (test code = 85727) HOMOGENEOUS (test NEGATIVE TITER NEGATIVE code = 17441) SPECKLED (test NEGATIVE TITER NEGATIVE code = 510473) DENSE FINE NEGATIVE TITER NEGATIVE SPECKLED (test code = 34817) CENTROMERE (test NEGATIVE TITER NEGATIVE code = 731369) COARSE SPECKLED NEGATIVE TITER NEGATIVE (test code = 001024) DISCRETE NUCLEAR NEGATIVE TITER NEGATIVE DOTS (test code = 440678) NUCLEOLAR (test NEGATIVE TITER NEGATIVE code = 931887) NUCLEAR MEMBRANE NEGATIVE TITER NEGATIVE (test code = 950387) CYTO. RETICULAR NEGATIVE NEGATIVE (DARRELL) (test code = 578723) COMMENTS (test NONE code = 324474) METHOD (test code (NOTE) TESTING P ERFORMED BY = 58213) INOVA DIAGNOSTI CS NOVA VIEW IFA PLATFO RM.THE METHOD INCLUDES A SCREEN THRESHOL D OF 1:80, DIGITIZED AND COMPUTER ALGORITHM-MARGY DUSTY INTERPRETATION OF TITERS AND DIGI MCKINLEY PATTERNS, AND H Ep-2 CELL LINE SUBST RATE. ADDITIONAL UNUS UAL PATTERNS WILL B E GIVEN COMMENTS.FOR MORE INFORMATION, SE Nuñez [email or web address] RHEUMATOID FACTOR, [id number] 23:07:35 Test Item Value Reference Range Interpretation Comments RHEUMATOID FACTOR, QUANT (test code <10 IU/ML <14 = 3502) SEDIMENTATION [id number] 11:23:05 Test Item Value Reference Range Interpretation Comments SEDIMENTATION RATE (test code = 2 MM/HOUR 0-15 1017) VITAMIN D, 25 [id number] 10:47:08 Test Item Value Reference Range Interpretation [...] . . . . . NG/ML 30-100 [facility] has important p athology staff changes effecti ve 08/14/2022. New patholo gy staff will provide uninter rupted, excellent patie nt care and clinical consul tation. See URL: [email or web address]. UNLESS OTHERWIS E INDICATED, ALL TESTING PERFORM ED AT CLINICAL PATHOLOGY [facility]. [address] [place] [address] LABORATORY DIRE CTOR: Taty CRUZ NIGHAT NUMBER [id number] [place]. [id number] C-REACTIVE [id number] 07:03:35 Test Item Value Reference Range Interpretation Comments C-REACTIVE PROTEIN (test code = 1.5 MG/DL <0.5 H 3513) URIC [id number] 04:53:18 Test Item Value Reference Range Interpretation Comments URIC ACID (test code = 2233) 11.8 MG/DL 3.7-8.0 H - CT LOWER EXTRM W/O C [id number] 16:10:00 Name: BÁRBARAJAVY [facility] : 1985 Age/S: 33 / M [address] Unit #: [id number] Loc: [place] [address] Phys: Dre Snyder MD Acct: [id number] Dis Date: Status: ADM IN PHONE #: [phone] Exam Date: 06/04/2019 1515 FAX #: Reason: pain left ankle and foot EXAMS: CPT: [id number] [place] L[place] EXTRM W/[place] [address] EXAM: - CT LOWER EXTRM W/O C [...] patient size, and/or utilization of iterative reconstruction techn ique. DLP: 144.47 mGy-cm. FINDINGS: There is a [...] (1610) [email or web address] Orig Print D/T: S: 06/04/2019 (5269) PAGE 1 Signed ReportCBC W/AUTO [id number] 10:14:00 Test Item Value Reference Range Interpretation [...] DIFF REQUIRED NO DIFF/SCN CRITERIA SLIDE R BAMBIW (test code = MDIFF) CONSISTA NT WITH AUTO DIFFERENTIAL. CBC W/AUTO [id number] 07:54:00 Test Item Value Reference Range Interpretation [...] code = DIFF/SCN CRITERIA MDIFF) BASIC METABOLIC [id number] 07:46:00 Test Item Value Reference Range Interpretation [...] code = CA) 8.8 MG/DL 8.5-10.1 N [id number] 07:46:00 Test Item Value Reference Range Interpretation Comments MAGNESIUM (test code = MAG) 2.1 MG/DL 1.8-2.4 N HGB [id number] 09:03:00 Test Item Value Reference Range Interpretation Comments HEMOGLOBIN (test code = HGB) 12.8 G/DL 12.3-15.9 N HEMATOCRIT (test code = HCT) 38.7 % 35.8-46.7 N CBC W/AUTO [id number] 06:02:00 Test Item Value Reference Range Interpretation [...] code YES DIFF/SCN CRITERIA = MDIFF) WBC [id number] 06:02:00 Test Item Value Reference Range Interpretation Comments SEGMENTED NEUTROPHILS (test code = SEG) % 40-75 LYMPHOCYTE (test code = LYMPH) % 12.6-43.5 CBC W/AUTO [id number] 06:02:00 Test Item Value Reference Range Interpretation [...] code YES DIFF/SCN CRITERIA = MDIFF) WBC [id number] 06:02:00 Test Item Value Reference Range Interpretation [...] THOUSAND ADEQUATE code = PLTEST) CBC W/AUTO [id number] 06:02:00 Test Item Value Reference Range Interpretation [...] code YES DIFF/SCN CRITERIA = MDIFF) WBC [id number] 06:02:00 Test Item Value Reference Range Interpretation Comments SEGMENTED NEUTROPHILS (test code = SEG) % 40-75 LYMPHOCYTE (test code = LYMPH) % 12.6-43.5 BASIC METABOLIC [id number] 05:56:00 Test Item Value Reference Range Interpretation [...] CA) 8.7 MG/DL 8.5-10.1 N CBC W/AUTO [id number] 05:47:00 Test Item Value Reference Range Interpretation [...] DIFF/SCN CRITERIA MDIFF) - XR FLUOROSCOPY 0-60 [id number] 14:44:00 Name: JAVY GRANGER [facility] : 1985 Age/S: 33 / M [id number] Unit #: [id number] Loc: [place] [address] Phys: Richard Marie MD Acct: [id number] Dis Date: Status: ADM IN PHONE #: [phone] Exam Date: 05/31/2019 1430 FAX #: Reason: ORIF LEFT TIBIAL PLATEAU FX EXAMS: CPT: [id number] XR FLUOROSCOPY 0-60 MIN 59327 Fluoro Time: 227 SEC DAP (Gy m2): Air Kerma (mGy): EXAMINATION: - XR FLUOROSCOPY 0-60 MIN. LOCATION: S 17. HISTORY: ORIF LEFT TIBIAL PLATEAU FX. TECHNIQUE: Intraoperative fluoroscopy was utilized during surgery. Total reference air kerma was 21.54 mGy. FINDINGS/IMPRESSION: Intraoperative fluoroscopy was utilized during surgery. Please refer to operative reportfor detail. at 1444 Reported and signed by: Marciano Farnsworth M.D. CC: Vasu Stone MD; Richard Marie MD PAGE 1 Signed Report Name: JAVY GRANGER [facility] : 1985 Age/S: 33 / M [address] Unit #: [id number] Loc: [place] [address] Phys: Richard Marie MD Acct: [id number] Dis Date: Status: ADM IN PHONE #: [phone] Exam Date: 05/31/2019 1430 FAX #: Reason: ORIF LEFT TIBIAL PLATEAU FX EXAMS: CPT: [id number] XR FLUOROSCOPY 0-60 MIN 17859 Fluoro Time: 227 SEC DAP (Gy m2): Air Kerma (mGy): (Continued) Technologist: Anabelle Holland, RT(R); Fartun Gray, RT(R) Trndcb Date/Time: 05/31/2019 (1441) Kate.[email or web address] Orig Print D/T: S: 05/31/2019 (2591) PAGE 2 Signed Report- XR ANKLE 3+V [id number] 09:42:00 Name: JAVY GRANGER [facility] : 1985 Age/S: 33 / M [address] Unit #: [id number] Loc: [place] [address] Phys: Richard Marie MD Acct: [id number] Dis Date: Status: REG [facility] [place] PHONE #: [phone] Exam Date: 05/31/2019919 FAX #: Reason: RULE OUT INJURY EXAMS: CPT: [id number] XR ANKLE 3+[place] [address] Fluoro Time: DAP (Gy m2): Air Kerma [...] IMPRESSION: 1. Normal study of the osseous leftankle. Soft tissue swelling medially with suspected ligamentous injury/sprain. at 0942 Reported and signed by: Alex Rosario M.D.CC: Vasu Stone MD; Richard Marie MD PAGE 1 Signed Report Name: JAVY GRANGER [facility] : 1985 Age/S: 33 / M [address] Unit #: [id number] Loc: [place] [address] Phys: Richard Marie MD Acct: [id number] Dis Date: Status: REG SDC PHONE #: [phone] Exam Date: FAX #: Reason: RULE OUT INJURY EXAMS: CPT: [id number] XR ANKLE 3+[place] [address] Fluoro Time: DAP (Gy m2): Air Kerma (mGy): (Continued) Technologist: Anabelle Holland, RT(R); Fartun Gray, RT(R) Trnscb Date/Time: 05/31/2019 (941) [email or web address] Orig Print D/T: S: 05/31/2019 (4501) PAGE 2 Signed ReportBASIC METABOLIC [id number] 06:09:00 Test Item Value Reference Range Interpretation [...] CA) 9.5 MG/DL 8.5-10.1 N VITAMIN D [id number] 06:09:00 Test Item Value Reference Range Interpretation Comments VITAMIN D 8.2 ng/mL 30.0-100.0 A Vitamin D defic iency has 25-HYDROXY (test been define d by the code = VITD25) Commerce of edicine and an Endocrine So ciety practice guidel ine as alevel of serum 25-OH vitamin D less than 20 ng/mL (1,2).The Endocrine Society went on to further define vitamin Dinsufficiency as a level between 21 and 29 ng/mL (2).1. IOM (Ins titute of Medicine). 2010 . Dietary reference intak es for calcium and D. Song DC: Heri ruiz [employer] .2. Pratibha MF, Fernando GREGG, Ella chang GORDON, et al. Evaluation, treatment, and prevention of vitamin D de ficiency: an Endocrine So formerly [facility] clinical practi ce guideline. JCEM . 2010; 96(9):1911-30.P erformed At: [facility] [address] [place], [place] [id number] Richard Ruiz MD Ph:[phone] CBC W/AUTO [id number] 18:14:00 Test Item Value Reference Range Interpretation [...] MDIFF) CONSISTA NT WITH AUTO DIFFERENTIAL. SED [id number] 18:14:00 Test Item Value Reference Range Interpretation Comments SED RATE (test code = SEDW) 22 mm/hr 0-15 H CBC W/AUTO [id number] 14:51:00 Test Item Value Reference Range Interpretation [...] (test code = DIFF/SCN CRITERIA MDIFF) SED [id number] 14:51:00 Test Item Value Reference Range Interpretation Comments SED RATE (test code = SEDW) 22 mm/hr 0-15 H URINALYSIS [id number] 14:05:00 Test Item Value Reference Range Interpretation [...] LEUU) Urine Specimen Type: Clean CatchC REACTIVE [id number] 13:57:00 Test Item Value Reference Range Interpretation Comments C REACTIVE PROTEIN (test code = 1.190 MG/DL 0.000-0.3 H CRP) PROTHROMBIN [id number] 13:41:00 Test Item Value Reference Range Interpretation Comments PT PATIENT (test code = PTP) 13.2 SECONDS 9.3-12.9 H INTERNATIONAL NORMAL RATIO 1.16 INR Unit 0.8-1.2 N (test code = INR) THROMBOPLASTIN TIME [id number] 13:41:00 Test Item Value Reference Range Interpretation Comments THROMBOPLASTIN TIME PARTIAL 29.8 SECONDS 26-35 N (test code = PTT) BASIC METABOLIC [id number] 13:39:00 Test Item Value Reference Range Interpretation [...] CA) 9.5 MG/DL 8.5-10.1 N VITAMIN D [id number] 13:39:00 Test Item Value Reference Range Interpretation Comments VITAMIN D 25-HYDROXY (test code = VITD25) CBC W/AUTO [id number] 13:22:00 Test Item Value Reference Range Interpretation [...] (test code = DIFF/SCN CRITERIA MDIFF) SED [id number] 13:22:00 Test Item Value Reference Range Interpretation Comments SED RATE (test code = SEDW) mm/hr 0-15 - XR CHEST 2 [id number] 12:33:00 Name: JAVY GRANGER [facility] : 1985 Age/S: 33 / M [address] Unit #: [id number] Loc: [place] [address] Phys: Richard Marie MD Acct: [id number] Dis Date: Status: PRE SDC PHON E #: [phone] Exam Date: 05/28/2019 1224 FAX #: Reason: PREOP EXAMS: CPT: [id number] XR CHEST 2 V 37590 Fluoro Time: DAP (Gy m2): Air Kerma (mGy): LOCATION: T18 EXAM: CHEST 2 VIEWS INDICATION: PREOP COMPARISON: None. TECHNIQUE: PA and lateral chest radiographs. FINDINGS: Lungs are clear bilaterally without effusion. Heart and mediastinum are normal in size and contour. Bones and peripheral softtissues are unremarkable. IMPRESSION: Lungs are clear. No acute abnormality. at 1233 Reported and signed by: Rohan Grissom M.D. CC: Tori Stone MD; Richard Marie MD PAGE 1 Signed Report Name: JAVY RGANGER : 1985Age/S: 33 / M [address] Unit #: [id number] Loc: [place] [address] Phys: Richard Marie MD Acct: [id number] Dis Date: Status: PRE SDC PHONE #: [phone] Exam Date: 05/28/2019 1221 FAX #: Reason: PREOP EXAMS: CPT: [id number] XR CHEST 2 V 60973 Fluoro Time: DAP (Gy m2): Air Kerma (mGy): (Co ntinued) Technologist: Anabelle Holland, RT(R) Trnscb Date/Time: 05/28/2019 (5260) [email or web address] Orig Print D/T: S: 05/28/2019 (1250) PAGE 2 Signed Report
--- NOTE | 2023-04-06 14:18 | ER ---
Nurse's Notes [facility] Name: Campos Sampson Age: 37 yrs Sex: Male : 1985 Arrival Date: 04/06/2023 Time: 13:30 Bed IW4 Private MD: Diagnosis: Pain in right ankle and joints of right foot Presentation: 04/06 14:15 Chief complaint: Patient states: R posterior ankle pain for 2 days. Coronavirus screen: ll1 Client denies travel out of the [place] in the last 14 days. At this time, the client does not indicate any symptoms associated with coronavirus-19. Ebola Screen: Patient denies travel to an Ebola-affected area in the 21 days before illness onset. Initial Sepsis Screen: Does the patient meet any 2 criteria? No. Patient's initial sepsis screen is negative. Does the patient have a suspected source of infection? No. Patient's initial sepsis screen is negative. Risk Assessment: Do you want to hurt yourself or someone else? Patient reports no desire to harm self or others. Onset of symptoms was April 03, 2023. 14:15 Method Of Arrival: Ambulatory ll1 14:15 Acuity: ANGELA 4 ll1 Triage Assessment: 14:17 General: Appears uncomfortable, Behavior is calm, cooperative, appropriate for age. ll1 Pain: Complains of pain in posterior R ankle Quality of pain is described as aching. Musculoskeletal: Circulation, motion, and sensation intact. Capillary refill < 3 seconds, Reports pain in posterior R ankle. Historical: - Allergies: 14:17 No Known Drug Allergies; ll1 - PMHx: 14:17 Arthritis; Chronic pain; Degenerative disc disease; Hypertension; insomnia; ll1 - PSHx: 14:17 knee SX (insomnia); Tonsillectomy; ll1 - Immunization history:: Adult Immunizations up to date. - Social history:: Smoking status: Patient denies any tobacco usage or history of. Screenin:26 [facility] ED Fall Risk Assessment (Adult) Score/Fall Risk Level 0 - 2 = Low Risk ll1 Oriented to surroundings, Maintained a safe environment, Educated pt \T\ family on fall prevention, incl call for assistance when getting out of bed, Hourly rounding (assess needs \T\ fall precautionary measures) done. Abuse screen: Denies threats or abuse. Nutritional screening: No deficits noted. Tuberculosis screening: No symptoms or risk factors identified. Assessment: 14:26 Reassessment: No changes from previously documented assessment. Patient and/or family ll1 updated on plan of care and expected duration. Pain level reassessed. Patient is alert, oriented x 3, equal unlabored respirations, skin warm/dry/pink. Vital Signs: 14:15 BP 147 / 89; Pulse 81; Resp 18; Temp 97.9; Pulse Ox 98% ; Pain 8/10; ll1 14:15 Pain Scale: Adult ll1 ED Course: 13:57 Patient arrived in ED. ll1 14:00 Anabelle Gomez FNP-C is [facility]. kb 14:00 Cole Sarah MD is Attending Physician. kb 14:17 Triage completed. ll1 14:18 Arm band placed on. ll1 14:23 Kwasi wrap to right ankle tolerated well. ll1 14:26 Patient has correct armband on for positive identification. Bed in low position. Call ll1 light in reach. Provided Education on: n/a. 14:26 No provider procedures requiring assistance completed. Patient did not have IV access ll1 during this emergency room visit. Administered Medications: 14:25 Not Given (Patient Refused): [id number] mg PO once ll1 Medication: 14:26 VIS not applicable for this client. ll1 Outcome: 14:17 Discharge ordered by . kb 14:26 Patient left the ED. ll1 14:26 Discharged to home ambulatory, ll1 14:26 Condition: stable 14:26 Discharge instructions given to patient, Instructed on discharge instructions, follow up and referral plans. no drinking with medication, medication usage, Demonstrated understanding of instructions, follow-up care, medications, Prescriptions given X 2, Signatures: Anabelle Gomez FNP-C FNP-Ckb Lewis, Lynsay, RN RN ll1
--- NOTE | 2023-04-06 14:18 | EDPHYS ---
Physician Documentation [facility] Name: Campos Sampson Age: 37 yrs Sex: Male : 1985 Arrival Date: 04/06/2023 Time: 13:30 Bed IW4 Private MD: ED Physician Cole Sarah HPI: 04/06 18:34 This 37 yrs old Male presents to ER via Ambulatory with complaints of leg pain. kb 18:34 Patient reports he twisted his left knee yesterday and has been having pain to right kb Achilles area since then that radiates up his calf. Ambulates with steady gait using cane.. Historical: - Allergies: 14:17 No Known Drug Allergies; ll1 - PMHx: 14:17 Arthritis; Chronic pain; Degenerative disc disease; Hypertension; insomnia; ll1 - PSHx: 14:17 knee SX (insomnia); Tonsillectomy; ll1 - Immunization history:: Adult Immunizations up to date. - Social history:: Smoking status: Patient denies any tobacco usage or history of. ROS: 18:34 Constitutional: Negative for fever, chills, and weight loss, kb 18:34 MS/extremity: Positive for pain, of the right Achilles, 18:34 All other systems are negative, Exam: 18:34 Constitutional: This is a well developed, well nourished patient who is awake, alert, kb and in no acute distress. Head/Face: Normocephalic, atraumatic. ENT: Moist Mucous membranes Cardiovascular: Regular rate Respiratory: Respirations even and unlabored. No increased work of breathing. Talking in full sentences Skin: Warm, dry with normal turgor. Normal color. Neuro: Awake and alert, GCS 15, oriented to person, place, time, and situation. Moves all extremities. Normal gait. 18:34 Musculoskeletal/extremity: Extremities: grossly normal except: noted in the right Achilles: pain, ROM: intact in all extremities, Circulation is intact in all extremities. Sensation intact. Weight bearing: able to fully bear weight, Vital Signs: 14:15 BP 147 / 89; Pulse 81; Resp 18; Temp 97.9; Pulse Ox 98% ; Pain 8/10; ll1 14:15 Pain Scale: Adult ll1 MDM: 14:07 Patient medically screened. kb 18:35 Differential diagnosis: dislocation, closed fracture, contusion, abrasion, tendonitis, kb Strain. Data reviewed: vital signs, nurses notes. Test considered but Not performed: X-ray: X-ray considered but patient has no bony tenderness, ambulates with steady gait with cane.. Counseling: I had a detailed discussion with the patient and/or guardian regarding the historical points, exam findings, and any diagnostic results supporting the discharge/admit diagnosis, the need for outpatient follow up, a family practitioner, a orthopedic surgeon, to return to the emergency department if symptoms worsen or persist or if there are any questions or concerns that arise at home. 04/06 14:17 Order name: Kwasi Wrap; Complete Time: 14:25 kb Administered Medications: 14:25 Not Given (Patient Refused): [id number] mg PO once ll1 Disposition: 04/07 10:00 Co-signature as Attending Physician, Cole Sarah MD I reviewed the patient's care rn provided by the Advanced Practice Provider and agree with the diagnosis and treatment plan. Disposition Summary: 04/06/23 14:17 Discharge Ordered Notes: Location: Home kb Condition: Stable kb Diagnosis - Pain in right ankle and joints of right foot kb Followup: kb - With: Emergency Department - When: As needed - Reason: Worsening of condition Followup: kb - With: Private Physician - When: 2 - 3 days - Reason: Recheck today's complaints, Continuance of care, Re-evaluation by your physician Discharge Instructions: - Discharge Summary Sheet kb - Musculoskeletal Pain kb Forms: - Medication Reconciliation Form kb - Thank You Letter kb - Antibiotic Education kb - Prescription Opioid Use kb - Patient Portal Instructions kb - Leadership Thank You Letter kb Prescriptions: - Ibuprofen 800 mg Oral Tablet - take 1 tablet ORAL route every 8 hours As needed take with food; 30 tablet; kb Refills: 0, Product Selection Permitted - orphenadrine citrate 100 mg Oral Tablet Sustained Release - take 1 tablet ORAL route 2 times per day As needed; 20 tablet; Refills: 0, kb Product Selection Permitted Signatures: Anabelle Gomez FNP-C FNP-Cole Esparza MD MD rn Lewis, Lynsay, RN RN ll1
[2023-04-06] MEDS ORDERED: IBUPROFEN 400 MG TAB ONE (14:32)
== END 2023-04-06 14:26 | disposition home or self-care (01) ==
LOC: ER 13:30
DX: M25.571 Pain in right ankle and joints of right foot (principal)
CPT/HCPCS: 99283

== ENCOUNTER 2024-04-11 20:17 | Inpatient (IN) | payer OTHER ==
--- OUTSIDE RECORDS SUMMARY | 2024-04-11 20:20 | XMS REPORT | Continuity of Care Document ---
Author Name Unknown Address [address] [facility] [address] [place] [address] [facility] thconnect Address [address] [facility] [address] [place] [address] Care Team Providers Care Corporate Health Consultant Name Role Phone BATSHEVA PHAM NATASHA Attending Clinician Unava ilable BATSHEVA PHAM NATASHA Admitting Clinician Unava ilable Payers Payer Name Policy Type Policy Number Effective Date Expirati on Date Source MISW MISW [id number] Allergies, Adverse Reactions, Alerts Allergy Name Allergy Type Status Severity Reaction(s) Onset Date Inactive Date Treating Clinician Comments Source No Known Allergie s DA Active U 2018-06 00:00: 00 [facility] Encounters Start Date/Time End Date/Time Encounter Type Admission Type Attending Clinicians Care Facility Care Department Encounter ID Source 2023-06-28 13:09:22 2023-06-28 13:09:22 Outpatient SFA SFA [id number] Sammy Rasmussen 2023-06-23 15:56:03 2023-06-23 15:56:03 Outpatient SFA SFA [id number] Sammy Hylton Grady 2023-04-07 16:39:32 2023-04-07 16:39:32 Outpatient SFA SFA [id number] Sammy Rasmussen 2023-01-20 08:07:07 2023-01-20 08:07:07 Outpatient SFA SFA [id number] Sammy Rasmussen 2022-12-16 14:20:46 2022-12-16 14:20:46 Outpatient SFA SFA [id number] Sammy Rasmussen 2022-11-25 14:54:03 2022-11-25 14:54:03 Outpatient SFA SFA [id number] Sammy Rasmussen 2022-11-18 14:10:53 2022-11-18 14:10:53 Outpatient SFA SFA [id number] Sammy Rasmussen 2022-11-13 14:59:51 2022-11-13 14:59:51 Outpatient SFA SFA [id number] Sammy Rasmussen 2022-10-30 15:19:14 2022-10-30 15:19:14 Outpatient SFA SFA [id number] Sammy Rasmussen 2022-10-07 09:58:04 2022-10-07 09:58:04 Outpatient SFA SFA [id number] Sammy Rasmussen 2022-09-02 14:49:39 2022-09-02 14:49:39 Outpatient SFA SFA [id number] Sammy Rasmussen 2019-06-05 21:20:00 2019-06-13 09:15:00 Inpatient 3 BATSHEVA PHAM ENCPL MARILU [id number] [facility] [place] Results Test Description Test Time Test Comments Results Result Co mments Source COMPREHENSIVE METABOLIC [id number] 23:51:48* Test Item Value Reference Range Interpretation Comme nts GLUCOSE (test code = 2217) 142 MG/DL 70-99 H BUN (test code = 2208) 18 MG/DL 6-20 CREATININE (test code = 2214) 1.13 MG/DL 0.80-1.40 eGFR (2020 CKD-EPI) (test co de = 47372) 85 ML/MIN/1.73 >60 CALC BUN/CREAT (test code = 2235) 16 RATIO 6-28 SODIUM (test code = 2231) 137 MEQ/L 133-146 POTASSIUM (test code = 2228) 3.8 MEQ/L 3.5-5.4 CHLORIDE (test code = 2215) 98 MEQ/L 95-107 CARBON DIOXIDE (test code = 2206) 20 MEQ/L 19-31 CALCIUM (test code = 2208) 10.0 MG/DL 8.5-10.5 PROTEIN, TOTAL (test code = 2228) 7.1 G/DL 6.1-8.3 ALBUMIN (test code = 1) 4.5 G/DL 3.5-5.2 CALC GLOBULIN (test code = 2240) 2.6 G/DL 1.9-3.7 CALC A/G RATIO (test code = 2233) 1.7 RATIO 1.0-2.6 BILIRUBIN, TOTAL (test code = 2206) 0.5 MG/DL <=1.2 ALKALINE PHOSPHATASE (test code = 2203) 45 U/L 40-117 AST (test code = 2217) 22 U/L 9-50 ALT (test code = 2218) 33 U/L 5-50 LIPID [id number] 23:51:48* Test Item Value Reference Range Interpretation Comme nts CHOLESTEROL (test code = 2209) 182 MG/DL <200 TRIGLYCERIDES (test code = 2231) 135 MG/DL <150 HDL CHOLESTEROL (test code = 2219) 44 MG/DL >39 CALC LDL CHOL (test code = 2236) 113 MG/DL <100 H NOTE: CALCULATED LDL IS BASED ON DELFIN-NOBLE METHOD WHICHINCLUDES ADJUSTABLE TRIGLYCERIDE:VLDL CHOLESTEROL RATIO.THIS FACTOR VARIES BY MEASURED TRIGLYCERIDE AND NON-HDLCHOLESTEROL CONCENTRATIONS WITH INCREASED CALCULATED LDL SEENIN HIGHER TRIGLYCERIDE OR LOWER NON-HDL SPECIMENS. FOR MOREINFORMATION, SEE CLIENT ANNOUNCEMENT AT [email or web address] RATIO LDL/HDL (test code = 2237) 2.57 RATIO <3.55 [id number] 10:31:43* Test Item Value Reference Range Interpretation Comme nts D-DIMER (test code = 1405) 0.54 UG/ML FEU <=0.49 H NOTE: Provided r eference range is established for evaluation of Deep Venous Thrombosis/Pulmonary Embolus (DVT/PE). Results below cutoff value of <=0.49 UG/ML FEU have a high negative predictive value forDVT/PE. No reference range is established for disseminatedintra-vascul ar coagulation (DIC). UNLESS OTHERWISE INDICATED, ALL TESTING PERFORMED AT [facility] [address] [place] [address] 8TH [employer]HEMAT[employer] TEACHER: NAHED NDIAYE M.D. CLIA NUMBER [id number] [place]. [id number] HEMOGLOBIN [id number] 04:08:12* Test Item Value Reference Range Interpretation Comme nts HEMOGLOBIN A1c (test code = 29320) 5.3 % 4.2-5.6 UNLESS OTHERWISE INDICATED, ALL TESTING PERFORMED AT [facility] [address] [place] [address] 8TH [employer]MAT[employer] TEACHER: NAHED NDIAYE M.D. CLIA NUMBER [id number] [place]. [id number] CULTURE, [id number] 13:21:34SPECIMEN NUMBER: [id number] CULTURE, URINE SPECIMEN NUMBER: [id number] SPECIMEN COMMENT: URINE SOURCE: URINE REPORT STATUS: FINAL FINAL REPORT: 10/09/2022 10-50,000 CFU/ML UROGENITAL KRYSTIAN PRESENT NO CO MMON PATHOGENSANA REFLEX AUTOIMMUNE AB [id number] 00:03:52* Test Item Value Reference Range Interpretation Comme nts ANTI-NUCLEAR ANTIBODIES (test code = 3506) NEGATIVE NEGATIVE Methodology is I ndirect Immunofluorescent Assay (IFA) with a titering system using Ebh4925 cells (Hep2 cells transfected with SS-A/Ro). [place] PATTERN (REPORTED TITER) (test code = 99487) SEE BELOW HOMOGENEOUS (test code = 81897) NEGATIVE TITER NEGATIVE SPECKLED (test code = 740430) NEGATIVE TITER NEGATIVE DENSE FINE SPECKLED (test code = 01616) NEGATIVE TITER NEGATIVE CENTROMERE (test code = 014570) NEGATIVE TITER NEGATIVE COARSE SPECKLED (test code = 937792) NEGATIVE TITER NEGATIVE DISCRETE NUCLEAR DOTS (test code = 898389) NEGATIVE TITER NEGATIVE NUCLEOLAR (test code = 949488) NEGATIVE TITER NEGATIVE NUCLEAR MEMBRANE (test code = 808081) NEGATIVE TITER NEGATIVE CYTO. RETICULAR (DARRELL) (test code = 090947) NEGATIVE NEGATIVE COMMENTS (test code = 024409) NONE METHOD (test code = 91428) (NOTE) TESTING PERFORME D BY Microstim IFA PLATFORM.THE METHOD INCLUDES A SCREEN THRESHOLD OF 1:80, DIGITIZED AND COMPUTER ALGORITHM-ASSISTED INTERPRETATION OF TITERS AND DIGITAL PATTERNS, AND HEp-2 CELL LINE SUBSTRATE. ADDITIONAL UNUSUAL PATTERNS WILL BE GIVEN COMMENTS.FOR MORE INFORMATION, SEE [email or web address] RHEUMATOID FACTOR, [id number] 23:07:35* Test Item Value Reference Range Interpretation Comme nts RHEUMATOID FACTOR, QUANT (te st code = 3502) <10 IU/ML <14 SEDIMENTATION [id number] 11:23:05* Test Item Value Reference Range Interpretation Comme nts SEDIMENTATION RATE (test cod e = 1017) 2 MM/HOUR 0-15 VITAMIN D, 25 [id number] 10:47:08* Test Item Value Reference Range Interpretation Comme nts VITAMIN D, 25 OH (test code = 4958) 26 NG/ML SEE BELOW L EFFECTIVE 02/2023, PLEASE NOTE NEW METHODOLOGY IS ELECTROCHEMILUMINESCENCE BINDING ASSAY. NOTE: 25-HYDROXYVITAMIN D ASSAY INCLUDES 25-HYDROXYVITAMIN D2 AND D3. INTERPRETIVE RANGES PEDIATRIC (<17 YEARS) . . . . . . . . . . . NG/ML 20-100ADULT: INSUFFICIENT . . . . . . . . . . . . . . NG/ML <20 SUBOPTIMAL . . . . . . . . . . . . . . . NG/ML 20-29 OPTIMAL . . . . . . . . . . . . . . . . . NG/ML 30-100 [facility] has important pathology staff changes effective 08/14/2022. New pathology staff will provide uninterrupted, excellent patient care and clinical consultation. See URL: [email or web address]. UNLESS OTHERWISE INDICATED, ALL TESTING PERFORMED AT [facility] [address] [place] [address] 8TH GR[employer] MATHEMAT[employer] TEACHER: NAHED NDIAYE M.D. CLIA NUMBER [id number] [facility]. [id number] C-REACTIVE [id number] 07:03:35* Test Item Value Reference Range Interpretation Comme nts C-REACTIVE PROTEIN (test cod e = 3513) 1.5 MG/DL <0.5 H URIC [id number] 04:53:18* Test Item Value Reference Range Interpretation Comme nts URIC ACID (test code = 2233) 11.8 MG/DL 3.7-8.0 H - CT LOWER EXTRM W/O C [id number] 16:10:00Name: [facility] [place] [facility] 1985 Age/S: 33 / M [address] Unit #: [id number] Loc: [place] [address] Phys: Dre Snyder MD Acct: [id number] Dis Date: Status: ADM IN PHONE#: [phone] Exam Date: 06/04/2019 1515 FAX #: Reason: pain left ankle and foot EXAMS: CPT: [id number] CT LOWER EXTRM W/[place] [address] EXAM: - CT LOWER EXTRM W/O C [...] about the dorsal lateral aspect. IMPRESSION: 1. Well- corticated 5 mm ossific density by the posterior [...] Technologist:Ross Ch, RT(R)(CT)(MRI) CTDI: DLP: Trnscb Date/Time: 05/17 (1610) [email or web address] Orig Print D/T: S: 06/04/2019 (5832) PAGE 1 Signed ReportCBC W/AUTO [id number] 10:14:00* Test Item Value Reference Range Interpretation Comme nts WHITE BLOOD CELL (test code = WBC) 9.2 K/mm3 3.5-11.0 N RED BLOOD CELL (test code = RBC) 4.28 M/mm3 4.70-6.10 L HEMOGLOBIN (test code = HGB) 12.4 G/DL 12.3-15.9 N HEMATOCRIT (test code = HCT) 37.4 % 35.8-46.7 N MEAN CELL VOLUME (test code = MCV) 87.4 Fl 86.3-98.9 N MEAN CELL HGB (test code = MCH) 29.0 pg 28.9-34.4 N MEAN CELL HGB CONCETRATION (test code = MCHC) 33.2 G/DL 32.1-34.5 N RED CELL DISTRIBUTION WIDTH (test code = RDW) 12.7 SD 11.5-14.5 N PLATELET COUNT (test code = PLT) 287.0 K/mm3 150-450 N MEAN PLATELET VOLUME (test code = MPV) 10.90 fL 7.0-9.6 H NEUTROPHIL % (test code = NT%) 55.3 [...] N MANUAL DIFF REQUIRED (test code = MDIFF) NO DIFF/SCN CRITERIA SLIDE REVIEW CONSISTANT WITH AUTO DIFFERENTIAL. CBC W/AUTO [id number] 07:54:00* Test Item Value Reference Range Interpretation Comme nts WHITE BLOOD CELL (test code = WBC) 9.2 K/mm3 3.5-11.0 N RED BLOOD CELL (test code = RBC) 4.28 M/mm3 4.70-6.10 L HEMOGLOBIN (test code = HGB) 12.4 G/DL 12.3-15.9 N HEMATOCRIT (test code = HCT) 37.4 % 35.8-46.7 N MEAN CELL VOLUME (test code = MCV) 87.4 Fl 86.3-98.9 N MEAN CELL HGB (test code = MCH) 29.0 pg 28.9-34.4 N MEAN CELL HGB CONCETRATION ( test code = MCHC) 33.2 G/DL 32.1-34.5 N RED CELL DISTRIBUTION WIDTH (test code = RDW) 12.7 SD 11.5-14.5 N PLATELET COUNT (test code = PLT) 287.0 K/mm3 150-450 N MEAN PLATELET VOLUME (test c ode = MPV) 10.90 fL 7.0-9.6 H NEUTROPHIL % (test code = NT%) % [...] K/mm3 0.0-0.2 N MANUAL DIFF REQUIRED (test c ode = MDIFF) DIFF/SCN CRITERIA BASIC METABOLIC [id number] 07:46:00* Test Item Value Reference Range Interpretation Comme nts SODIUM (test code = NA) 138 mmol/L 134-147 N POTASSIUM (test code = K) 4.1 mmol/L 3.4-5.0 N CHLORIDE (test code = CL) 105 mmol/L 100-108 N CARBON DIOXIDE (test code = CO2) 30 mmol/L 21-32 N ANION GAP (test code = GAP) 3.0 GAP calc 4.0-15.0 L GLUCOSE (test code = GLU) 87 MG/DL 70-110 N BLOOD UREA NITROGEN (test code = BUN) 20 MG/DL 7-18 H GLOMERULAR FILTRATION RATE (test code = GFR) >=60 max estimate estGFR >60 CREATININE (test code = CREAT) 0.9 MG/DL 0.8-1.3 N CALCIUM (test code = CA) 8.8 MG/DL 8.5-10.1 N [id number] 07:46:00* Test Item Value Reference Range Interpretation Comme nts MAGNESIUM (test code = MAG) 2.1 MG/DL 1.8-2.4 N HGB [id number] 09:03:00* Test Item Value Reference Range Interpretation Comme nts HEMOGLOBIN (test code = HGB) 12.8 G/DL 12.3-15.9 N HEMATOCRIT (test code = HCT) 38.7 % 35.8-46.7 N CBC W/AUTO [id number] 06:02:00* Test Item Value Reference Range Interpretation Comme nts WHITE BLOOD CELL (test code = WBC) 14.7 K/mm3 3.5-11.0 H RED BLOOD CELL (test code = RBC) 4.80 M/mm3 4.70-6.10 N HEMOGLOBIN (test code = HGB) 14.1 G/DL 12.3-15.9 N HEMATOCRIT (test code = HCT) 41.2 % 35.8-46.7 N MEAN CELL VOLUME (test code = MCV) 85.8 Fl 86.3-98.9 L MEAN CELL HGB (test code = MCH) 29.4 pg 28.9-34.4 N MEAN CELL HGB CONCETRATION ( test code = MCHC) 34.2 G/DL 32.1-34.5 N RED CELL DISTRIBUTION WIDTH (test code = RDW) 12.9 SD 11.5-14.5 N PLATELET COUNT (test code = PLT) 314.0 K/mm3 150-450 N MEAN PLATELET VOLUME (test c ode = MPV) 10.20 fL 7.0-9.6 H MANUAL DIFF REQUIRED (test c ode = MDIFF) YES DIFF/SCN CRITERIA WBC [id number] 06:02:00* Test Item Value Reference Range Interpretation Comme nts SEGMENTED NEUTROPHILS (test code = SEG) % 40-75 LYMPHOCYTE (test code = LYMPH) % 12.6-43.5 CBC W/AUTO [id number] 06:02:00* Test Item Value Reference Range Interpretation Comme nts WHITE BLOOD CELL (test code = WBC) 14.7 K/mm3 3.5-11.0 H RED BLOOD CELL (test code = RBC) 4.80 M/mm3 4.70-6.10 N HEMOGLOBIN (test code = HGB) 14.1 G/DL 12.3-15.9 N HEMATOCRIT (test code = HCT) 41.2 % 35.8-46.7 N MEAN CELL VOLUME (test code = MCV) 85.8 Fl 86.3-98.9 L MEAN CELL HGB (test code = MCH) 29.4 pg 28.9-34.4 N MEAN CELL HGB CONCETRATION ( test code = MCHC) 34.2 G/DL 32.1-34.5 N RED CELL DISTRIBUTION WIDTH (test code = RDW) 12.9 SD 11.5-14.5 N PLATELET COUNT (test code = PLT) 314.0 K/mm3 150-450 N MEAN PLATELET VOLUME (test c ode = MPV) 10.20 fL 7.0-9.6 H MANUAL DIFF REQUIRED (test c ode = MDIFF) YES DIFF/SCN CRITERIA WBC [id number] 06:02:00* Test Item Value Reference Range Interpretation Comme nts SEGMENTED NEUTROPHILS (test code = SEG) 62 % 40-75 N BAND NEUTROPHIL (test code = BAND) 2 % 0-8 N LYMPHOCYTE (test code = LYMPH) 21 % 12.6-43.5 N MONOCYTE (test code = MON) 12 % 4.2-12.7 N EOSINOPHIL (test code = EOS) 1 % 0.0-5.2 N METAMYELOCYTE (test code = META) 1 % 0-2 N MYELOCYTE (test code = MYELO) 1 % 0-1 N ANISOCYTOSIS (test code = ANISO) NORMAL NONE PLATELET ESTIMATE (test code = PLTEST) ADEQUATE THOUSAND ADEQUATE CBC W/AUTO [id number] 06:02:00* Test Item Value Reference Range Interpretation Comme nts WHITE BLOOD CELL (test code = WBC) 14.7 K/mm3 3.5-11.0 H RED BLOOD CELL (test code = RBC) 4.80 M/mm3 4.70-6.10 N HEMOGLOBIN (test code = HGB) 14.1 G/DL 12.3-15.9 N HEMATOCRIT (test code = HCT) 41.2 % 35.8-46.7 N MEAN CELL VOLUME (test code = MCV) 85.8 Fl 86.3-98.9 L MEAN CELL HGB (test code = MCH) 29.4 pg 28.9-34.4 N MEAN CELL HGB CONCETRATION ( test code = MCHC) 34.2 G/DL 32.1-34.5 N RED CELL DISTRIBUTION WIDTH (test code = RDW) 12.9 SD 11.5-14.5 N PLATELET COUNT (test code = PLT) 314.0 K/mm3 150-450 N MEAN PLATELET VOLUME (test c ode = MPV) 10.20 fL 7.0-9.6 H MANUAL DIFF REQUIRED (test c ode = MDIFF) YES DIFF/SCN CRITERIA WBC [id number] 06:02:00* Test Item Value Reference Range Interpretation Comme nts SEGMENTED NEUTROPHILS (test code = SEG) % 40-75 LYMPHOCYTE (test code = LYMPH) % 12.6-43.5 BASIC METABOLIC [id number] 05:56:00* Test Item Value Reference Range Interpretation Comme nts SODIUM (test code = NA) 137 mmol/L 134-147 N POTASSIUM (test code = K) 3.7 mmol/L 3.4-5.0 N CHLORIDE (test code = CL) 102 mmol/L 100-108 N CARBON DIOXIDE (test code = CO2) 28 mmol/L 21-32 N ANION GAP (test code = GAP) 7.0 GAP calc 4.0-15.0 N GLUCOSE (test code = GLU) 119 MG/DL 70-110 H BLOOD UREA NITROGEN (test code = BUN) 21 MG/DL 7-18 H GLOMERULAR FILTRATION RATE (test code = GFR) >=60 max estimate estGFR >60 CREATININE (test code = CREAT) 1.0 MG/DL 0.8-1.3 N CALCIUM (test code = CA) 8.7 MG/DL 8.5-10.1 N CBC W/AUTO [id number] 05:47:00* Test Item Value Reference Range Interpretation Comme nts WHITE BLOOD CELL (test code = WBC) 14.7 K/mm3 3.5-11.0 H RED BLOOD CELL (test code = RBC) 4.80 M/mm3 4.70-6.10 N HEMOGLOBIN (test code = HGB) 14.1 G/DL 12.3-15.9 N HEMATOCRIT (test code = HCT) 41.2 % 35.8-46.7 N MEAN CELL VOLUME (test code = MCV) 85.8 Fl 86.3-98.9 L MEAN CELL HGB (test code = MCH) 29.4 pg 28.9-34.4 N MEAN CELL HGB CONCETRATION ( test code = MCHC) 34.2 G/DL 32.1-34.5 N RED CELL DISTRIBUTION WIDTH (test code = RDW) 12.9 SD 11.5-14.5 N PLATELET COUNT (test code = PLT) 314.0 K/mm3 150-450 N MEAN PLATELET VOLUME (test c ode = MPV) 10.20 fL 7.0-9.6 H NEUTROPHIL % (test code = NT%) % [...] K/mm3 0.0-0.2 N MANUAL DIFF REQUIRED (test c ode = MDIFF) DIFF/SCN CRITERIA - XR FLUOROSCOPY 0-60 [id number] 14:44:00Name: JAVY GRANGER [facility] : 1985 Age/S: 33 / M [address] Unit #: [id number] Loc: [place] [address] Phys: Richard Marie MD Acct: [id number] Dis Date: Status: ADM IN PHONE #: [phone] Exam Date: 05/31/2019 1430 FAX #: Reason: ORIF LEFT TIBIAL PLATEAU FX EXAMS: CPT:[id number] XR FLUOROSCOPY 0-60 MIN 61239 Fluoro Time: 227 SEC DAP (Gy m2): Air Kerma (mGy): EXAMINATION: - XR FLUOROSCOPY 0-60 MIN. LOCATION: S 17. HISTORY: ORIF LEFT TIBIAL PLATEAU FX. TECHNIQUE: Intr aoperative fluoroscopy was utilized during surgery. Total reference air kerma was 21.54 mGy. FINDINGS/ IMPRESSION: Intraoperative fluoroscopy was utilized during surgery. Please refer to operative report for detail. at 9110 Reported and signed by: Marciano Farnsworth M.D. CC: Vasu Stone MD; Richard Marie MD PAGE 1 Signed Report Name: JAVY GRANGER [facility] : 1985 Age/S: 33 / M [facility] [address] Unit #: [id number] Loc:[place] [address] Phys: Richard Marie MD Acct: [id number] Dis Date: Status: ADM IN PHONE #: [phone] Exam Date: 05/31/2019 1430 FAX #: Reason: ORIF LEFT TIBIAL PLATEAU FX EXAMS: CPT: [id number] XR FLUOROSCOPY 0-60 MIN 58313 Fluoro Time: 227 SEC DAP (Gy m2): Air Kerma (mGy): (Continued) Technologist: Anabelle Holland, RT(R); Fartun Gray, RT(R) Trnscb Date/Time: 05/31/2019 (7625) UrbanPR7 Orig Print D/T: S: 05/31/2019 (0944) PAGE 2 Signed Report- XR ANKLE 3+V [id number] 09:42:00Name: SHIRLEYVIET TATET [facility] : 1985 Age/S: 33 / M [address] Unit #: [id number] Loc: [place] [address] Phys: Richard Marie MD Acct: [id number] Dis Date: Status: [facility] [place] [place] PHONE #: [phone] Exam Date: 05/31/2019919 FAX #: Reason: RULE OUT INJURY EXAMS: CPT: [id number] XR ANKLE 3+[place] [address] Fluoro Time: DAP (Gy m2): Air Kerma (mGy): EXAM: Ankle x-ray, multiple views INDICATION: RULE OUT INJURY LOCATION CODE: C3 COMPARISON: None TECHNIQUE: Multiple view study of theleft ankle including AP, lateral and oblique views [...] PAGE 1 Signed Report Name: JAVY GRANGER [place] : 1985 Age/S: 33 / M [address] [facility] Unit #: [id number] Loc: [place] [address] Phys: Richard Marie MD Acct: [id number] Dis Date: Status: [facility] [place] [place] PHONE #: [phone] Exam Date: 05/31/2019919 FAX #: Reason: RULE OUT INJURY EXAMS: CPT: [id number] XR ANKLE 3+[place] [address] Fluoro Time: DAP (Gy m2): Air Kerma (mGy): (Continued) Technologist: Anabelle Holland, RT(R); Fartun Gray RT(R) Trnscb Date/Time: 05/31/2019 (0942) tWILTON Orig Print D/T: S: 05/31/2019 (8057) PAGE2 Signed ReportBASI METABOLIC [id number] 06:09:00* Test Item Value Reference Range Interpretation Comme nts SODIUM (test code = NA) 135 mmol/L 134-147 N POTASSIUM (test code = K) 4.0 mmol/L 3.4-5.0 N CHLORIDE (test code = CL) 104 mmol/L 100-108 N CARBON DIOXIDE (test code = CO2) 24 mmol/L 21-32 N ANION GAP (test code = GAP) 7.0 GAP calc 4.0-15.0 N GLUCOSE (test code = GLU) 98 MG/DL 70-110 N BLOOD UREA NITROGEN (test code = BUN) 24 MG/DL 7-18 H GLOMERULAR FILTRATION RATE (test code = GFR) >=60 max estimate estGFR >60 CREATININE (test code = CREAT) 1.0 MG/DL 0.8-1.3 N CALCIUM (test code = CA) 9.5 MG/DL 8.5-10.1 N VITAMIN D 37-[id number] 06:09:00* Test Item Value Reference Range Interpretation Comme nts VITAMIN D 25-HYDROXY (test code = VITD25) 8.2 ng/mL 30.0-100.0 A Vitamin D defici ency has been defined by the [place] ofMedicine and an Endocrine Society practice guideline as alevel of serum 25-OH vitamin D less than 20 ng/mL (1,2).The Endocrine Society went on to further define vitamin Dinsufficiency as a level between 21 and 29 ng/mL (2).1. IOM ([place] of Medicine). 2010. Dietary reference intakes for calcium and D. [place]: The National Academies Press.2. Pratibha MF, Fernando NC, Randall GORDON, et al. Evaluation, treatment, and prevention of vitamin D deficiency: an Endocrine Society clinical practice guideline. JCEM. 2010; 96(7):1911-30.Performed At: [facility] [address] [id number] Kyle L MD Ph:[phone] CBC W/AUTO [id number] 18:14:00* Test Item Value Reference Range Interpretation Comme nts WHITE BLOOD CELL (test code = WBC) 11.7 K/mm3 3.5-11.0 H RED BLOOD CELL (test code = RBC) 5.45 M/mm3 4.70-6.10 N HEMOGLOBIN (test code = HGB) 16.2 G/DL 12.3-15.9 H HEMATOCRIT (test code = HCT) 46.8 % 35.8-46.7 H MEAN CELL VOLUME (test code = MCV) 85.9 Fl 86.3-98.9 L MEAN CELL HGB (test code = MCH) 29.7 pg 28.9-34.4 N MEAN CELL HGB CONCETRATION (test code = MCHC) 34.6 G/DL 32.1-34.5 H RED CELL DISTRIBUTION WIDTH (test code = RDW) 12.8 SD 11.5-14.5 N PLATELET COUNT (test code = PLT) 370.0 K/mm3 150-450 N MEAN PLATELET VOLUME (test code = MPV) 10.40 fL 7.0-9.6 H NEUTROPHIL % (test code = NT%) 65.2 [...] N MANUAL DIFF REQUIRED (test code = MDIFF) NO DIFF/SCN CRITERIA SLIDE REVIEW CONSISTANT WITH AUTO DIFFERENTIAL. SED [id number] 18:14:00* Test Item Value Reference Range Interpretation Comme nts SED RATE (test code = SEDW) 22 mm/hr 0-15 H CBC W/AUTO [id number] 14:51:00* Test Item Value Reference Range Interpretation Comme nts WHITE BLOOD CELL (test code = WBC) 11.7 K/mm3 3.5-11.0 H RED BLOOD CELL (test code = RBC) 5.45 M/mm3 4.70-6.10 N HEMOGLOBIN (test code = HGB) 16.2 G/DL 12.3-15.9 H HEMATOCRIT (test code = HCT) 46.8 % 35.8-46.7 H MEAN CELL VOLUME (test code = MCV) 85.9 Fl 86.3-98.9 L MEAN CELL HGB (test code = MCH) 29.7 pg 28.9-34.4 N MEAN CELL HGB CONCETRATION ( test code = MCHC) 34.6 G/DL 32.1-34.5 H RED CELL DISTRIBUTION WIDTH (test code = RDW) 12.8 SD 11.5-14.5 N PLATELET COUNT (test code = PLT) 370.0 K/mm3 150-450 N MEAN PLATELET VOLUME (test c ode = MPV) 10.40 fL 7.0-9.6 H NEUTROPHIL % (test code = NT%) 65.2 [...] K/mm3 0.0-0.2 N MANUAL DIFF REQUIRED (test c ode = MDIFF) DIFF/SCN CRITERIA SED [id number] 14:51:00* Test Item Value Reference Range Interpretation Comme nts SED RATE (test code = SEDW) 22 mm/hr 0-15 H URINALYSIS [id number] 14:05:00* Test Item Value Reference Range Interpretation Comme nts UA GLUCOSE DIPSTICK (test code = DGLUU) NEGATIVE mg/dL NEG UA BILIRUBIN DIPSTICK (test code = BILU) NEGATIVE mg/dL NEG UA KETONE DIPSTICK (test code = KETU) NEGATIVE mg/dL NEG UA SPECIFIC GRAVITY (test code = SGU) 1.025 SG 1.005-1.030 UA BLOOD DIPSTICK (test code = KEYSHA) TRACE mg/DL NEG UA PH DIPSTICK (test code = CARSON) 6.0 pH UNITS 5.0-7.0 UA PROTEIN DIPSTICK (test code = PROU) TRACE mg/dL NEG A UA UROBILINIOGEN DIPSTICK (test code = URO) 0.2 mg/dL <2.0 UA NITRITE DIPSTICK (test code = ZIYAD) NEGATIVE SCREEN NEG UA LEUKOCYTE ESTERASE DIPSTICK (test code = LEUU) NEGATIVE Leuk/mcL NEGATIVE Urine Specimen Type: Clean CatchC REACTIVE [id number] 13:57:00* Test Item Value Reference Range Interpretation Comme nts C REACTIVE PROTEIN (test cod e = CRP) 1.190 MG/DL 0.000-0.3 H PROTHROMBIN [id number] 13:41:00* Test Item Value Reference Range Interpretation Comme nts PT PATIENT (test code = PTP) 13.2 SECONDS 9.3-12.9 H INTERNATIONAL NORMAL RATIO (test code = INR) 1.16 INR Unit 0.8-1.2 N THROMBOPLASTIN TIME [id number] 13:41:00* Test Item Value Reference Range Interpretation Comme nts THROMBOPLASTIN TIME PARTIAL (test code = PTT) 29.8 SECONDS 26-35 N BASIC METABOLIC [id number] 13:39:00* Test Item Value Reference Range Interpretation Comme nts SODIUM (test code = NA) 135 mmol/L 134-147 N POTASSIUM (test code = K) 4.0 mmol/L 3.4-5.0 N CHLORIDE (test code = CL) 104 mmol/L 100-108 N CARBON DIOXIDE (test code = CO2) 24 mmol/L 21-32 N ANION GAP (test code = GAP) 7.0 GAP calc 4.0-15.0 N GLUCOSE (test code = GLU) 98 MG/DL 70-110 N BLOOD UREA NITROGEN (test code = BUN) 24 MG/DL 7-18 H GLOMERULAR FILTRATION RATE (test code = GFR) >=60 max estimate estGFR >60 CREATININE (test code = CREAT) 1.0 MG/DL 0.8-1.3 N CALCIUM (test code = CA) 9.5 MG/DL 8.5-10.1 N VITAMIN D [id number] 13:39:00* Test Item Value Reference Range Interpretation Comme nts VITAMIN D 25-HYDROXY (test c ode = VITD25) CBC W/AUTO [id number] 13:22:00* Test Item Value Reference Range Interpretation Comme nts WHITE BLOOD CELL (test code = WBC) 11.7 K/mm3 3.5-11.0 H RED BLOOD CELL (test code = RBC) 5.45 M/mm3 4.70-6.10 N HEMOGLOBIN (test code = HGB) 16.2 G/DL 12.3-15.9 H HEMATOCRIT (test code = HCT) 46.8 % 35.8-46.7 H MEAN CELL VOLUME (test code = MCV) 85.9 Fl 86.3-98.9 L MEAN CELL HGB (test code = MCH) 29.7 pg 28.9-34.4 N MEAN CELL HGB CONCETRATION ( test code = MCHC) 34.6 G/DL 32.1-34.5 H RED CELL DISTRIBUTION WIDTH (test code = RDW) 12.8 SD 11.5-14.5 N PLATELET COUNT (test code = PLT) 370.0 K/mm3 150-450 N MEAN PLATELET VOLUME (test c ode = MPV) 10.40 fL 7.0-9.6 H NEUTROPHIL % (test code = NT%) % [...] K/mm3 0.0-0.2 N MANUAL DIFF REQUIRED (test c ode = MDIFF) DIFF/SCN CRITERIA SED [id number] 13:22:00* Test Item Value Reference Range Interpretation Comme nts SED RATE (test code = SEDW) mm/hr 0-15 - XR CHEST 2 [id number] 12:33:00Name: JAVY GRANGER [facility] : 1985 Age/S: 33 / M [address] Unit #: [id number] Loc: [place] [address] Phys: Richard Marie MD Acct: [id number] Dis Date: Status: PRE SDC PHONE #: [phone] Exam Date: 05/28/2019 1224 FAX #: Reason: PREOP EXAMS: CPT: [id number] XR CHEST 2 V 87368 Fluoro Time: DAP (Gy m2): Air Kerma [...] PAGE 1 Signed Report Name: JAVY GRANGER [facility] : [birth year] Age/S: 33 / M [address] Unit #: [id number] Loc: [place] [address] Phys: Richard Marie MD Acct: [id number] Dis Date: Status: PRE SDC PHONE #: [phone] Exam Date: 05/28/2019 1224FAX #: Reason: PREOP EXAMS: CPT: [id number] XR CHEST 2 V 91406 Fluoro Time: DAP (Gy m2): Air Kerma(mGy): (Continued) Technologist: Anabelle Holland, RT(R) Trnscb Date/Time: 05/28/2019 (7752) [id number] Orig Print D/T: S: 05/28/2019 (0963) PAGE 2 Signed Report Notes Date/Time Note Provider Source 2019-06-14 07:36:00 [facility] ([facility]) Hospitalist Discharge Summary REPORT#:[id number] REPORT STATUS: Signed DATE:06/14/19 TIME:735 PATIENT: JAVY GRANGER UNIT #: [id number] ROOM/BED: [place] [address] : [birth year] AGE: 33 SEX: M ATTEND: Brian Avery MD ADM AUTHOR: Dre Snyder MD * ALL edits or amendments must be made on the electronic/computer document * PCP PCP PCP: PCP: Vasu [...] and went to a freestanding ER in [place] from where he followed up apparently with orthopedic surgery. At that time, he had a brace applied to the left knee, which was not removed until whenever he came for elective surgery this admission where Dr. Marie did open reduction and internal fixation of the left tibial plateau. The patient is status post this procedure and is nonweightbearing for the next [address] Marie. ASSESSMENT AND PLAN: 1. Complicated left knee fracture. The patient had surgery with Dr. Marie with open reduction and internal fixation and he also had repair of the lateral meniscus. At this point, the patient is nonweightbearing for the next 3 months. Rehab referral- 2. Leukocytosis. WBC went up from 11.7 to 14.7. No evidence of infection, likely secondary to pain. We will manage his pain as needed. resolved 3. Vitamin D deficiency. This is new for the patient's vitamin D level of 8.2. Start the patient on vitamin D 2000 units per day. Outpatient endocrinology 06/05:Discharge orders placed for inpat rehab Pt. condition on discharge: improved, stable Med Rec Med Rec Discharge meds: Stop taking the following medications: ACETAMINOPHEN/CODEINE (TYLENOL WITH CODEINE #3 300/30 MG) 300 MG-30 MG TAB 1 TABLET ORAL EVERY 6 HOURS NEEDED. as needed for PAIN METHOCARBAMOL (ROBAXIN) 500 MG TAB [...] TABLET ORAL EVERY 4 HOURS NEEDED. as needed for PAIN SCALE 4-5 Days = 30 No Refills HYDROcodone/APAP (NORCO 10/325) 10 MG-325 MG TAB 2 TABLET ORAL EVERY 4 HOURS NEEDED. as needed for PAIN SCALE 7-10 Days = 14 [...] No Refills Discharge Instructions Prescriptions: on chart at 0739 RPT #: [id number] END OF REPORT [facility] 2019-06-05 11:40:00 [facility]) Hospitalist Progress Note REPORT#:[id number] REPORT STATUS: Signed DATE:06/05/19 TIME:1140 PATIENT: JAVY GRANGER UNIT #: [id number] ROOM/BED: [place] [address] : [birth year] AGE: 33 SEX: M ATTEND: Brian Avery MD ADM AUTHOR: Dre Snyder MD * ALL edits or amendments must be made on the electronic/computer document * Subjective Chief Complaint: Pain L leg, constant pressure L foot Review of Systems Respiratory: Denies: SOB. Cardiovascular: Denies: chest pain. Objective General VS/I O: Vital Signs: Date Time Temp Pulse Resp B/P B/P Pulse O2 O2 Flow FiO2 Mean Ox Delivery Rate 06/05 1139 [...] 1900 Intake Total 360 Output Total 1999 2400 Balance -1999 Intake, Oral 360 Output, Urine 1999 2400 Patient Weight Weight (lb): 330 Weight (oz): 11.09 Weight (kg): 149.685 Physical Exam General appearance: alert, awake Cardiovascular: normal capillary refill, regular rate rhythm Respiratory: aerating well, no distress Abdomen: non-tender, normal bowel sounds, soft, no distention, no guarding, no hernial, no mass/organomegaly, no rebound Extremities: no clubbing, no cyanosis, no edema, Post op dressing/brace L knee mild swelling L ankle Diagnosis, Assessment Plan Free Text DxA P Notes Free Text DxA P Notes: ASSESSMENT AND PLAN: 1. Complicated left knee fracture. The patient had surgery with Dr. Marie with open reduction and internal fixation and he also had repair of the lateral meniscus. At this point, the patient is nonweightbearing for the next 3 months. Rehab referral-if declined will consider home with home health with practical nursing instructor for bed baths and assistance at home 2. Leukocytosis. WBC went up from 11.7 to 14.7. No evidence of infection, likely secondary to pain. We will manage his pain as needed. resolved 3. Vitamin D deficiency. This is new for the patient's vitamin D level of 8.2. Start the patient on vitamin D 2000 units per day. Outpatient endocrinology I understand he is accepted for rehab but workman comp authorization pending CT LLE as constant L foot pain 06/05:Discharge orders placed conditional if patient accepted at inpatient rehab at 1141 RPT #: [id number] END OF REPORT [facility] 2019-06-04 15:48:00 [facility]) Hospitalist Progress Note REPORT#:[id number] REPORT STATUS: Signed DATE:06/04/19 TIME:1548 PATIENT: JAVY GRANGER UNIT #: [id number] ROOM/BED: [place] [address] : [birth year] AGE: 33 SEX: M ATTEND: Brian Avery MD ADM AUTHOR: Dre Snyder MD * ALL edits or amendments must be made on the electronic/computer document * Subjective Chief Complaint: Pain L [...] well, no distress Abdomen: non-tender, normal bowel sounds, soft, no distention, no guarding, no hernial, no mass/organomegaly, no rebound Extremities: no clubbing, no cyanosis, no edema, Post op dressing/brace L knee mild swelling L ankle Diagnosis, Assessment Plan Free Text DxA P Notes Free Text DxA P Notes: ASSESSMENT AND PLAN: 1. Complicated left knee fracture. The patient had surgery with Dr. Marie with open reduction and internal fixation and he also had repair of the lateral meniscus. At this point, the patient is nonweightbearing for the next 3 months. Rehab referral-if declined will consider home with home health with practical nursing instructor for bed baths and assistance at home 2. Leukocytosis. WBC went up from 11.7 to 14.7. No evidence of infection, likely secondary to pain. We will manage his pain as needed. resolved 3. Vitamin D deficiency. This is new for the patient's vitamin D level of 8.2. Start the patient on vitamin D 2000 units per day. Outpatient endocrinology I understand he is accepted for rehab but workman comp authorization pending CT LLE as constant L foot pain at 1554 RPT #: [id number] END OF REPORT [facility] 2019-06-03 18:23:00 [facility] ([facility]) Hospitalist Progress Note REPORT#:[id number] REPORT STATUS: Signed DATE:06/03/19 TIME:1822 PATIENT: JAVY GRANGER UNIT #: [id number] ROOM/BED: [place] [address] : [birth year] AGE: 33 SEX: M ATTEND: Brian Avery MD ADM AUTHOR: Dre Snyder MD * ALL edits or amendments must be made on the electronic/computer document * Subjective Chief Complaint: Pain about 4 out of 10 in the left leg Review of Systems Respiratory: Denies: SOB. Cardiovascular: Denies: chest pain. Objective General VS/I O: Vital Signs: Date Time Temp Pulse Resp B/P B/P Pulse O2 O2 Flow FiO2 Mean Ox Delivery Rate 06/03 1603 [...] well, no distress Abdomen: non-tender, normal bowel sounds, soft, no distention, no guarding, no hernial, no mass/organomegaly, no rebound Extremities: no clubbing, no cyanosis, no edema, Post op dressing/brace L knee mild swelling L ankle Diagnosis, Assessment Plan Free Text DxA P Notes Free Text DxA P Notes: ASSESSMENT AND PLAN: 1. Complicated left knee fracture. The patient had surgery with Dr. Marie with open reduction and internal fixation and he also had repair of the lateral meniscus. At this point, the patient is nonweightbearing for the next 3 months. Rehab referral-if declined will consider home with home health with practical nursing instructor for bed baths and assistance at home 2. Leukocytosis. WBC went up from 11.7 to 14.7. No evidence of infection, likely secondary to pain. We will manage his pain as needed. labs in am and follow 3. Vitamin D deficiency. This is new for the patient's vitamin D level of 8.2. Start the patient on vitamin D 2000 units per day. Outpatient endocrinology pending rehab acceptance at 1824 RPT #: [id number] END OF REPORT [facility] 2019-06-02 12:25:00 [facility]) Hospitalist Progress Note REPORT#:[id number] REPORT STATUS: Signed DATE:06/02/19 TIME:1225 PATIENT: JAVY GRANGER UNIT #: [id number] ROOM/BED: [place] [address] : [birth year] AGE: 33 SEX: M ATTEND: Brian Avery MD ADM AUTHOR: Dre Snyder MD * ALL edits or amendments must be made on the electronic/computer document * Subjective Chief Complaint: Pain about 4 out of 10 in the left leg Review of Systems Respiratory: Denies: SOB. Cardiovascular: Denies: chest pain. Objective General VS/I O: Vital Signs: Date Time Temp Pulse Resp B/P B/P Pulse O2 O2 Flow FiO2 Mean Ox Delivery Rate 06/02 1152 [...] well, no distress Abdomen: non-tender, normal bowel sounds, soft, no distention, no guarding, no hernial, no mass/organomegaly, no rebound Extremities: no clubbing, no cyanosis, no edema, Post op dressing/brace L knee mild swelling L ankle Diagnosis, Assessment Plan Free Text DxA P Notes Free Text DxA P Notes: ASSESSMENT AND PLAN: 1. Complicated left knee fracture. The patient had surgery with Dr. Marie yesterday with open reduction and internal fixation and he also had repair of the lateral meniscus. At this point, the patient is nonweightbearing for the next 3 months. Rehab referral-if declined will consider home with home health with practical nursing instructor for bed baths and assistance at home 2. Leukocytosis. WBC went up from 11.7 to 14.7. No evidence of infection, likely secondary to pain. We will manage his pain as needed. 3. Vitamin D deficiency. This is new for the patient's vitamin D level of 8.2. Start the patient on vitamin D 2000 units per day. Outpatient endocrinology Current Medications Sig/Lenin Start time Last Medication Dose Route Stop Time Status Admin Quetiapine Fumarate 200 MG BEDTIME 06/01 2100 AC 06/01 PO 07/01 2058 2344 Enoxaparin Sodium 40 MG Q24H 06/01 1430 AC 06/01 SUBQ 06/15 1429 1453 Cholecalciferol 2,000 INTL.UNITS DAILY 06/01 1206 CKD 06/02 PO 07/01 1205 0844 Cefazolin Sodium 1 GM Q8H 05/31 2000 AC 06/02 Sterile Water 10 ML IV 06/05 1959 1153 Naproxen 500 MG BID MEALS 05/31 194 CKD 06/02 PO 06/30 193 0844 Famotidine 20 MG BID 05/31 193 AC 06/02 PO 06/30 192 0844 Docusate Sodium 100 MG BID 05/31 1700 AC 06/02 PO 06/30 1659 0844 Pregabalin 75 MG BID 05/31 1700 DC 06/02 PO 06/02 0901 0843 Acetaminophen 500 MG Q6H PRN PRN 05/31 1430 AC PO 06/30 1429 Hydrocodone Bitart/ 1 TAB Q4H PRN PRN 05/31 1430 AC 06/01 Acetaminophen PO 06/10 1429 1653 Hydrocodone Bitart/ 2 TAB Q4H PRN PRN 12/16 1430 AC 06/02 Acetaminophen PO 06/10 1429 1104 at 1228 RPT #: [id number] END OF REPORT [facility] 2019-06-01 20:36:00 [facility] ([facility]) Orthopaedic Progress Note REPORT#:[id number] REPORT STATUS: Signed DATE:06/01/19 TIME:2035 PATIENT: JAVY GRANGER UNIT #: [id number] ROOM/BED: [place] [address] : [birth year] AGE: 33 SEX: M ATTEND: Brian Avery MD ADM AUTHOR: Richard Marie MD * ALL edits or amendments must be made on the electronic/computer document * Subjective Chief complaint: pt in alot of pain but believe nl postop for terrible fracture, hopefully better pod#3, needs pain control, and independence with PT at 2037 RPT #: [id number] END OF REPORT [facility] 2019-06-01 14:24:00 [id number] [facility] [id number] [place] [address] PATIENT NAME: JAVY GRANGER ADMIT DATE: 06/01/19 ACCOUNT NO: [id number] ROOM NO: [facility] AGE: 33 REPORT TYPE: HISTORY AND PHYSICAL SEX: M ADMITTING PHYSICIAN: Brian Avery MD ATTENDING PHYSICIAN: Brian Avery MD ADMISSION DATE: 06/01/2019 PRIMARY CARE PHYSICIAN: Vasu Stone MD in [place]. CHIEF COMPLAINT: Left knee and left foot pain. HISTORY OF PRESENTING ILLNESS: The patient is a 33-year-old male. He has a past medical history of osteoarthritis and insomnia. The patient had fallen around 05/16/2019 and went to a freestanding ER in [place] from where he followed up apparently with orthopedic surgery. At that time, he had a brace applied to the left knee, which was not removed until whenever he came for elective surgery yesterday where Dr. Marie did open reduction and internal fixation of the left tibial plateau. The patient is status post this procedure and is nonweightbearing for the next [address] Marie. He is met in the room. He is complaining of some pain 7/10 in his left foot and also 4/10 pain in his left knee. Otherwise, denies any other complaint. PAST MEDICAL HISTORY: As mentioned above. PAST SURGICAL HISTORY: Tonsillectomy as a child. SOCIAL HISTORY: No smoking, alcohol, or illicit drug use. ALLERGIES: NO KNOWN DRUG ALLERGIES. FAMILY HISTORY: The mom had left knee fracture. HOME MEDICATIONS: I have asked the nurse to update the home medications. REVIEW OF SYSTEMS: CONSTITUTIONAL: Negative for fever. Negative for chills. MUSCULOSKELETAL: Positive for pain in the left knee and left foot. Negative for rash. A 14-point review of system was done and was negative except as mentioned above. PHYSICAL EXAMINATION: VITAL SIGNS: Temperature 36.3, heart rate 100, respiratory rate of 18, blood pressure 129/85, O2 sat 93% on room air. GENERAL: The patient is awake, alert and oriented x3, in no apparent distress. HEENT: Head is normocephalic, atraumatic. Pupils are equal and reactive to light. PATIENT NAME: JAVY GRANGER NECK: No cervical adenopathy or thyromegaly. No jugular venous distention. LUNGS: Clear to auscultation bilaterally. No wheezing or rhonchi. CARDIOVASCULAR: S1 and S2. No murmurs or added sounds. ABDOMEN: Soft, nontender, and nondistended. No organomegaly. EXTREMITIES: No cyanosis or clubbing. He has a brace around his left knee, status post surgery with dressing in place. There is some mild swelling around the left ankle, but is able to move both feet appropriately without any tenderness in the foot. LABS AND IMAGING: CBC; WBC 11.7, hemoglobin 16.2, which is 14.1 today, platelet count of 370. CMP: Sodium 135, potassium 4.0, creatinine is 1.0. Vitamin D 8.2. INR is 1.15. X-ray of the left ankle showed some soft tissue swelling with suspected ligamentous injury or sprain. Chest x-ray showed no acute finding. ASSESSMENT AND PLAN: 1. Complicated left knee fracture. The patient had surgery with Dr. Marie yesterday with open reduction and internal fixation and he also had repair of the lateral meniscus. At this point, the patient is nonweightbearing for the next 3 months. Physical Therapy has been consulted. The patient's discharge to home is complicated by the fact that he lives in a house that has no room downstairs and he will not be able to go upstairs because he is nonweightbearing for the next 3 months. Will request inpatient rehab. Pain management as needed while the patient is in the hospital. 2. Leukocytosis. WBC went upfrom 11.7 to 14.7. No evidence of infection, likely secondary to pain. We will manage his pain as needed. 3. Vitamin D deficiency. This is new for the patient's vitamin D level of 8.2. Start the patient on vitamin D 2000 units per day. 4. Other comorbidities. Resume the patient's home medications and adjust as needed. 5. Deep venous thrombosis prophylaxis. I will start him on Lovenox for DVT prophylaxis while he is here. Dictated By: Dre Snyder MD WT: HP:DIANNE/THIAGO/TOYA Conf#: [id number]/DID#: [id number] Authenticated and Edited by Dre Snyder MD On 06/03/19 7:32:21 PM at 1935 PATIENT NAME: JAVY GRANGER [facility] 2019-05-31 17:52:00 [facility] ([facility]) Post Anesthesia Evaluation REPORT#:[id number] REPORT STATUS: Signed DATE:05/31/19 TIME:175 PATIENT: JAVY GRANGER UNIT #: [id number] ROOM/BED: [place] [address] : [birth year] AGE: 33 SEX: M ATTEND: Brian Avery MD ADM AUTHOR: Maribel Azar CRNA * ALL edits or amendments must be made on the electronic/computer document * Post Anesthesia Evaluation Anes. changes from pre-op eval ORM Surgeries: Surgery Date and Time: 05/31/2019 1030 Proposed Primary Procedure: OPEN REDUCTION INTERNAL FIXATION LEFT Anesthetic: GETA Date: 05/31/19 Level of consciousness: no change, patient awake, able to answer questions, participate in this eval. Vital signs: Vital Signs: Date Time Temp Pulse Resp B/P B/P Pulse O2 O2 Flow FiO2 Mean Ox Delivery Rate 05/31 1615 [...] 85 14 156/96 94 05/31 1452 Simple 10.190565 mask 05/31 1450 85 15 157/107 93 05/31 1445 82 12 151/100 93 05/31 1442 36.3 85 14 156/101 100 Simple 10.906801 mask 05/31 0909 37.1 89 18 139/89 97 Room air 0.109911 Cardiovascular: no change, CV system stable, vital signs stable Respiratory/Airway: respiratory system stable, maintains without support, Atrovent neb treatment X 1 given for sats <94% with 10L O2 via FM Significant improvement in sats post treatment. sats 97% RA. Pain: adequately controlled, pain med. administered Hydration: adequate Temp status: greater than 96.8F Presence of N/V: no Anesthesia complications: no Other changes requiring f/u: none Conclusions: no apparent anes. issues at 1754 RPT #: [id number] END OF REPORT [facility] 2019-05-31 16:40:00 [id number] 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 PROCEDURES: 1. Open reduction and internal fixation of the tibial plateau bicondylar with a combination of a medium-sized lateral plate and then a posterior T-plate because of the posterior condyle on the medial side. 2. Repair of the lateral meniscus, which had kind of detached from the capsule and we pulled it together with sutures and then put that on the plate laterally. 3. Placement of the femoral distractor to distract it so when we look at the joint, joint surfaces lined up. 4. C-arm was used throughout the case. SURGEON: Richard Marie MD LEAD MASON TENDER: Zev Ragland MD ANESTHESIA: General. ESTIMATED BLOOD LOSS: 30 mL. COMPLICATIONS: None. PROCEDURE IN DETAIL: The patient's left leg was sterilely prepped and draped [...] is where we kind of saw that it was torn off and we put 2 sutures of #1 Vicryl to repair that. We found the exposed bone and kind of opened that up and unfortunately he had an impaction within that bone and so we kind of brought that cartilage up with some traction and then reduced it back to kind of a comminuted area of the midline. We went ahead and put a lateral plate on there with some screws into that as well as over to the bicondylar side, but it was anterior to where the posterior piece PATIENT NAME: JAVY GRANGER was. We then turned our attention over to the medial side, did a medial approach, and kind of mobilized that piece, also used the femoral distractor to bring that piece out and then placed the plate posteriorly with some screws and this seemed to bring it together fairly nicely. The articular surface, there was a piece that kind of kicked out a little bit, we left that alone. We did copious amount of irrigation, strict hemostasis, used the C-arm throughout the case to check the screws and make sure that everything was in the good position. The patient had closure with just 2-0 vertical nylon secondary to just a lot of swelling and comminution, as I said this was one of the worse that I have seen. The patient was placed in the knee immobilizer, sterile dressing, was extubated, and taken to the recovery room in good condition. Dictated By: Richard Marie MD WT: OP:DIANNE/ABRAHAM/TOYA Conf#: [id number]/DID#: [id number] Authenticated and Edited by Richard Marie MD On 06/01/19 3:29:05 PM at 1533 PATIENT NAME: JAVY GRANGER [facility] 2019-05-31 14:33:00 [facility] ([facility]) Brief Op Note REPORT#:[id number] REPORT STATUS: Signed DATE:05/31/19 TIME:1432 PATIENT: JAVY GRANGER UNIT #: [id number] ROOM/BED: [place] [address] : 84 AGE: 33 SEX: M ATTEND: Richard Marie MD [facility] AUTHOR: Richard Marie MD * ALL edits or amendments must be made on the electronic/computer document * Op/Inv Proc Note - Brief Pre-procedure diagnosis: bicondylar tibial plateau Post-procedure diagnosis: same as pre procedure dx Procedures performed: orif ant and postero medial, ex on and off Primary Surgeon: mayuri Vp Construction(s): nitish Findings: bicondylar with post fxs and cominution Complications: none Estimated blood loss in ml's: 300cc Specimens removed/altered: cultures at 1436 RPT #: [id number] [facility]
[2024-04-11 21:03] LABS: Absolute Basophils 0.1 K/uL (0-0.5); Absolute Eosinophils 0.2 K/uL (0-0.5); Absolute Lymphocytes (CBC) 1.9 K/uL (0.7-4.9); Absolute Monocytes 0.9 K/uL (0.1-1.3); Absolute Neutrophil 4.8 K/uL (1.8-8.0); Basophils % 0.7 % (0-1.3); Eosinophils % 2.5 % (0-4.4); Hemoglobin 14.4 g/dL (13.6-17.9); MCHC 33.5 g/dL (32.0-36.0); MCV 86.7 fL (80-100); Monocytes % 11.4 % (3.3-12.3); Neutrophils % 61.4 % (41.7-73.7); Platelets 194 thou/uL (152-406); RBC Red Blood Cell Count 4.97 M/uL (4.33-5.43); Red Cell Distribution Width 13.3 % (12.1-15.2)
[2024-04-11] MEDS ORDERED: METHYLPREDNISOLONE 125 MG INJ ONE (21:05)
[2024-04-11] MEDS ORDERED: IPRATROPIUM BROM 0.5MG/2.5ML ONE (21:05)
[2024-04-11] MEDS ORDERED: LEVALBUTEROL 1.25 MG/3 ML NEB ONE (21:05)
[2024-04-11 21:13] LABS: PT Prothrombin Time 11.6 SECONDS (9.4-12.5); PTT, Activated Partial Thromb 29.7 SECONDS (24.3-36.9); Protime INR 1.04
--- NOTE | 2024-04-11 21:13 | RAD REPORT ---
EXAMINATION: ONE VIEW CHEST XR CLINICAL INDICATION: DYSPNEA TECHNIQUE: Frontal chest projection is submitted. Examination is limited by patient positioning and t echnique. COMPARISON: 11/12/2022 FINDINGS: The lungs are well inflated and clear. The heart is normal in size. No displaced fractures identified . IMPRESSION: No acute intrathoracic abnormalities.
[2024-04-11 21:15] LABS: Albumin 3.8 g/dL (3.4-5.0); Albumin/Globulin Ratio 1.1 (1.1-1.8); Anion Gap 8.5 mEq/L (5.0-15.0); Bilirubin Total 0.4 mg/dL (0.2-1.0); Globulin 3.6 g/dL (2.3-3.5); Potassium 3.5 mEq/L (3.5-5.1); Protein, Total 7.4 g/dL (6.4-8.2)
--- NOTE | 2024-04-11 21:27 | EDPHYS ---
Physician Documentation [facility] Name: Campos Sampson Age: 38 yrs Sex: Male : 1985 Arrival Date: 04/11/2024 Time: 20:17 Bed 3 Private MD: ED Physician Cole Sarah HPI: 04/11 21:08 This 38 yrs old Male presents to ER via Wheelchair with complaints of Breathing rn Difficulty. 21:08 The patient has shortness of breath at rest, with light activity. rn Historical: - Allergies: 20:35 No Known Allergies; lg3 - PMHx: 20:35 Arthritis; Chronic pain; Degenerative disc disease; Hypertension; insomnia; lg3 - PSHx: 20:35 knee sx (ia); Tonsillectomy; lg3 - Immunization history:: Adult Immunizations up to date. - Infectious Disease History:: Denies. - Social history:: Smoking status: Patient denies any tobacco usage or history of. Patient/guardian denies using alcohol, street drugs. ROS: 21:25 Constitutional: Negative for fever, chills, and weight loss, Cardiovascular: Negative rn for chest pain, palpitations, and edema, Respiratory: Positive for shortness of breath and wheezing Abdomen/GI: Negative for abdominal pain, nausea, vomiting, diarrhea, and constipation, MS/Extremity: Negative for injury and deformity, Skin: Negative for injury, rash, and discoloration, Neuro: Negative for headache, weakness, numbness, tingling, and seizure, Exam: 21:25 Constitutional: Overweight male, moderate tachypnea ENT: No stridor Cardiovascular: rn Regular rate and rhythm. No pulse deficits. Respiratory: Moderate tachypnea, diminished breath sounds at bases, faint wheezing bilaterally Abdomen/GI: Soft, non-tender MS/ Extremity: Nonpitting edema bilateral lower extremities. No cyanosis. 21:59 ECG was reviewed by the Attending Physician. rn Vital Signs: 20:32 BP 166 / 80; Pulse 77; Resp 19 S; Temp 98.5(O); Pulse Ox 90% on R/A; Weight 186.88 kg lg3 (R); Height 6 ft. 0 in. (R); Pain 0/10; 20:37 Pulse Ox 94% on 2 lpm NC; lg3 21:13 BP 146 / 86; Pulse 72; Resp 12; Temp 98.5; Pulse Ox 97% on Nebulizer Mask; Pain 2/10; bm8 20:32 Body Mass Index 55.88 (186.88 kg, 182.88 cm) lg3 20:32 Pain Scale: Adult lg3 21:13 Pain Scale: Adult bm8 [place] Coma Score: 21:13 Eye Response: spontaneous(4). Motor Response: obeys commands(6). Verbal Response: bm8 oriented(5). Total: 15. MDM: 20:20 Medical Screening Exam initiated rn 21:25 Differential diagnosis: Anemia Anxiety Reaction asthma, Bronchitis Chronic Obstructive rn Pulmonary Disease Myocardial Infarction pneumonia, Pneumothorax pulmonary edema. Data reviewed: vital signs, nurses notes, lab test result(s), EKG, radiologic studies, plain films. Test considered but Not performed: CT: CT PE protocol considered but patient is overweight. Counseling: I had a detailed discussion with the patient and/or guardian regarding the historical points, exam findings, and any diagnostic results supporting the discharge/admit diagnosis, lab results, radiology results, the need for further work-up and treatment in the hospital. Response to treatment: the patient's symptoms have mildly improved after treatment, and as a result, I will admit patient. 04/11 20:31 Order name: Blood Culture Adult (2) rn 04/11 20:31 Order name: CBC with Diff; Complete Time: 21:15 04/11 20:31 Order name: CMP rn 04/11 20:31 Order name: Lactate w/ 2H reflex if indic.; Complete Time: 21:15 04/11 20:31 Order name: Protime (+inr) 04/11 20:31 Order name: Ptt, Activated rn 04/11 20:31 Order name: BNP 04/11 21:22 Order name: Glucose, Ancillary Testing; Complete Time: 21:25 EDNY 04/11 21:39 Order name: Magnesium [facility] 04/11 21:39 Order name: Phosphorus [facility] 04/11 21:39 Order name: Lipid Profile [facility] 04/11 21:39 Order name: Lipid Profile [facility] 04/11 21:40 Order name: D-Dimer [facility] 04/11 21:42 Order name: Influenza Screen (A [facility] 04/11 21:42 Order name: SARS-COV-2 Antigen Rapid [facility] 04/11 22:10 Order name: D-Dimer [facility] 04/11 22:14 Order name: Phosphorus [facility] 04/11 22:14 Order name: Magnesium [facility] 04/11 20:31 Order name: Chest Single View XRAY; Complete Time: 21:15 rn 04/11 21:42 Order name: RC SPUTUM COLLECTION / TX [facility] 04/11 20:31 Order name: EKG; Complete Time: 20:32 rn 04/11 20:31 Order name: Accucheck; Complete Time: 21:13 rn 04/11 20:31 Order name: Cardiac monitoring; Complete Time: 20:59 rn 04/11 20:31 Order name: EKG - Nurse/Tech; Complete Time: 20:59 rn 04/11 20:31 Order name: IV Saline Lock - Large Bore; Complete Time: 20:52 rn 04/11 20:31 Order name: Labs collected and sent; Complete Time: 20:52 rn 04/11 20:31 Order name: O2 Per Protocol; Complete Time: 20:53 rn 04/11 20:31 Order name: O2 Sat Monitoring; Complete Time: 20:53 rn 04/11 20:31 Order name: Vital Signs; Complete Time: 20:53 rn EC:59 Rate is 75 beats/min. Rhythm is regular. QRS [place] is Normal. [place] interval is normal. QRS rn interval is normal. QT interval is normal. No Q waves. T waves are Flattened in leads V4, V5, V6. No ST changes noted. Clinical impression: NSR w/ Non-specific ST/T Changes. Interpreted by me. Reviewed by me. Administered Medications: 21:06 Drug: MethylPrednisoLONE IVP 125 mg IVP once Route: IVP; Site: right antecubital; bm8 22:24 Follow up: Response: No adverse reaction bm8 21:06 Drug: Levalbuterol Inhalation 1.25 mg Inhalation once Route: Inhalation; bm8 22:25 Follow up: Response: No adverse reaction bm8 21:06 Drug: Ipratropium Inhalation Aerosol 0.5 mg Inhalation once Route: Inhalation; bm8 22:25 Follow up: Response: No adverse reaction bm8 Disposition Summary: 04/11/24 21:27 Hospitalization Ordered Notes: Hospitalization Status: Observation rn Provider: Prince Ellie rn [facility] rn Condition: Stable rn Problem: an acute exacerbation rn Symptoms: are unchanged rn Bed/Room Type: Standard rn Room Assignment: 404(04/11/24 21:41) sp Diagnosis - Hypoxemia rn - Dyspnea, unspecified rn Forms: - Medication Reconciliation Form rn - SBAR form rn - Leadership Thank You Letter rn Signatures: Dispatcher [employer] Marybeth Jeong Roman, MD MD rn AbleErin RN RN lg3 Curtis Pierre RN RN bm8 Corrections: (The following items were deleted from the chart) 21:41 21:27 rn sp
--- NOTE | 2024-04-11 21:27 | ER ---
Nurse's Notes [facility] Name: Campos Sampson Age: 38 yrs Sex: Male : 1985 Arrival Date: 04/11/2024 Time: 20:17 Bed 3 Private MD: Diagnosis: Hypoxemia;Dyspnea, unspecified Presentation: 04/11 20:32 Chief complaint: Patient states: SOB, cough wheezing X2 months. worsened today. lg3 Coronavirus screen: Client denies travel out of the [place] in the last 14 days. At this time, the client does not indicate any symptoms associated with coronavirus-19. Ebola Screen: No symptoms or risks identified at this time. Initial Sepsis Screen: Does the patient meet any 2 criteria? No. Patient's initial sepsis screen is negative. Does the patient have a suspected source of infection? No. Patient's initial sepsis screen is negative. Risk Assessment: Do you want to hurt yourself or someone else? Patient reports no desire to harm self or others. Onset of symptoms is unknown. 20:32 Method Of Arrival: Wheelchair lg3 20:32 Acuity: ANGELA 3 lg3 Triage Assessment: 20:35 General: Appears in no apparent distress. uncomfortable, Behavior is calm, cooperative. lg3 Pain: Denies pain. EENT: No deficits noted. No signs and/or symptoms were reported regarding the EENT system. Neuro: No deficits noted. [place] Agitation-Sedation Scale (RASS): 0 - Alert and Calm Level of Consciousness is awake, alert, obeys commands, Oriented to person, place, time, situation. Cardiovascular: Reports shortness of breath, Heart tones S1 S2 present Capillary refill < 3 seconds Clubbing of nail beds is absent JVD is absent Patient's skin is warm and dry. Respiratory: Reports shortness of breath cough that is air hunger Airway is patent Respiratory effort is pursed lip, Respiratory pattern is regular, symmetrical, Onset: The symptoms/episode began/occurred at an unknown time. the patient has moderate shortness of breath. GI: No deficits noted. No signs and/or symptoms were reported involving the gastrointestinal system. : No signs and/or symptoms were reported regarding the genitourinary system. Derm: No deficits noted. No signs and/or symptoms reported regarding the dermatologic system. Skin is intact, is healthy with good turgor, Skin is dry, Skin is normal, Skin temperature is warm. Musculoskeletal: No deficits noted. No signs and/or symptoms reported regarding the musculoskeletal system. Circulation, motion, and sensation intact. Range of motion: intact in all extremities. Historical: - Allergies: 20:35 No Known Allergies; lg3 - PMHx: 20:35 Arthritis; Chronic pain; Degenerative disc disease; Hypertension; insomnia; lg3 - PSHx: 20:35 knee sx (ia); Tonsillectomy; lg3 - Immunization history:: Adult Immunizations up to date. - Infectious Disease History:: Denies. - Social history:: Smoking status: Patient denies any tobacco usage or history of. Patient/guardian denies using alcohol, street drugs. Screenin:00 [facility] ED Fall Risk Assessment (Adult) History of falling in the last 3 months, vc1 including since admission No falls in past 3 months (0 pts) Confusion or Disorientation No (0 pts) Intoxicated or Sedated No (0 pts) Impaired Gait No (0 pts) Mobility Assist Device Used No (0 pt) Altered Elimination No (0 pt) Score/Fall Risk Level 0 - 2 = Low Risk Oriented to surroundings, Maintained a safe environment, Educated pt \T\ family on fall prevention, incl call for assistance when getting out of bed. Abuse screen: Denies threats or abuse. Nutritional screening: No deficits noted. Tuberculosis screening: No symptoms or risk factors identified. Assessment: 21:13 Reassessment: Patient appears in no apparent distress at this time. Patient and/or bm8 family updated on plan of care and expected duration. Pain level reassessed. Patient is alert, oriented x 3, equal unlabored respirations, skin warm/dry/pink. General: Appears in no apparent distress. comfortable, Behavior is calm, cooperative, appropriate for age. Pain: Denies pain. Neuro: No deficits noted. Level of Consciousness is awake, alert, obeys commands, Oriented to person, place, time, situation, Appropriate for age. Cardiovascular: Denies chest pain, Heart tones S1 S2 present Capillary refill < 3 seconds fingers toes Patient's skin is warm and dry. Pulses are all present. Rhythm is sinus rhythm. Respiratory: Reports shortness of breath at rest cough that is air hunger Airway is patent Trachea midline Respiratory effort is even, unlabored, Respiratory pattern is regular, symmetrical, Breath sounds are clear bilaterally. GI: No signs and/or symptoms were reported involving the gastrointestinal system. : No signs and/or symptoms were reported regarding the genitourinary system. EENT: No signs and/or symptoms were reported regarding the EENT system. Derm: No signs and/or symptoms reported regarding the dermatologic system. Musculoskeletal: Swelling present in right leg and left leg. Vital Signs: 20:32 BP 166 / 80; Pulse 77; Resp 19 S; Temp 98.5(O); Pulse Ox 90% on R/A; Weight 186.88 kg lg3 (R); Height 6 ft. 0 in. (R); Pain 0/10; 20:37 Pulse Ox 94% on 2 lpm NC; lg3 21:13 BP 146 / 86; Pulse 72; Resp 12; Temp 98.5; Pulse Ox 97% on Nebulizer Mask; Pain 2/10; bm8 20:32 Body Mass Index 55.88 (186.88 kg, 182.88 cm) lg3 20:32 Pain Scale: Adult lg3 21:13 Pain Scale: Adult bm8 [place] Coma Score: 21:13 Eye Response: spontaneous(4). Motor Response: obeys commands(6). Verbal Response: bm8 oriented(5). Total: 15. ED Course: 20:19 Patient arrived in ED. vc1 20:20 Cole Sarah MD is Attending Physician. rn 20:35 Triage completed. lg3 20:35 Arm band placed on right wrist. lg3 20:37 Oxygen administration via nasal cannula \T\ 2L/min Response to oxygen therapy: symptoms lg3 improved. 20:59 Blood Culture Adult (2) Sent. oh1 21:00 CBC with Diff Sent. oh1 21:00 CMP Sent. oh1 21:00 Lactate w/ 2H reflex if indic. Sent. oh1 21:00 Protime (+inr) Sent. oh1 21:00 Ptt, Activated Sent. oh1 21:01 Patient has correct armband on for positive identification. Bed in low position. Call vc1 light in reach. radio frequency engineer on. Pulse ox on. NIBP on. 21:01 Initial lab(s) drawn, by il, sent to lab. First set of blood cultures drawn by il, vc Second set of blood cultures drawn by il. Inserted saline lock: 20 gauge in right antecubital area, using aseptic technique. Blood collected. Flushed with 10 mL NS. 21:05 Chest Single View XRAY In Process Unspecified. EDMS 21:06 Curtis Pierre, RN is Primary Nurse. bm8 21:13 Door closed. Noise minimized. Pillow given. Verbal reassurance given. Head of bed bm8 elevated. 21:13 No provider procedures requiring assistance completed. bm8 21:27 Prince Argueta MD is Hospitalizing Provider. rn 22:25 Provided Education on: need for admission. bm8 22:25 Patient admitted, IV remains in place. bm8 Administered Medications: 21:06 Drug: MethylPrednisoLONE IVP 125 mg IVP once Route: IVP; Site: right antecubital; bm8 22:24 Follow up: Response: No adverse reaction bm8 21:06 Drug: Levalbuterol Inhalation 1.25 mg Inhalation once Route: Inhalation; bm8 22:25 Follow up: Response: No adverse reaction bm8 21:06 Drug: Ipratropium Inhalation Aerosol 0.5 mg Inhalation once Route: Inhalation; bm8 22:25 Follow up: Response: No adverse reaction bm8 Medication: 21:01 VIS not applicable for this client. vc1 Outcome: 21:27 Decision to Hospitalize by Provider. rn 22:25 Admitted to Tele accompanied by nurse, via stretcher, room 404, with oxygen, bm8 22:25 Condition: stable 22:25 Instructed on the need for admit, Demonstrated understanding of instructions, follow-up care, medications, 22:26 Patient left the ED. bm8 Signatures: Dispatcher [employer] EDMS Cole Sarah MD MD rn Able, Lacie, RN RN lg3 Alma Donaldson RN RN vc1 Curtis Pierre, RN RN bm8 Belinda Schafer oh1
[2024-04-11] MEDS ORDERED: ALBUTEROL 2.5 MG/3 ML NEB SOL NEB PRN (21:33)
[2024-04-11] MEDS ORDERED: ACETAMINOPHEN 500 MG TAB PO PRN (21:33)
[2024-04-11 22:10] LABS: D-Dimer 0.66 FEUug/mL (0-0.500)
[2024-04-11] MEDS ORDERED: SODIUM CHLORIDE 0.9% 10ML INJ IV PRN (22:11)
--- NOTE | 2024-04-11 22:11 | P.HP ---
Certification for Inpatient Patient admitted to: Inpatient With expected LOS: >2 Midnights Practitioner: I am a practitioner with admitting privileges, knowledge of patient current condition, hospital course, and medical plan of care. Services: Services provided to patient in accordance with Admission requirements found in Title 42 Section 412.3 of the Code of Federal Regulations Patient History Date of Service: 04/11/24 Reason for admission: shortness of breath History of Present Illness: Patient is a 38-year-old male with morbid obesity and chronic lung disease, possibly pulmonary fibrosis from silicon dust due to cat litter. He presented to the ER complaining of acutely worsening shortness of breath. Patient has been having dry cough as well and mild bilateral lower extremity edema. His chest x-ray does not reveal any acute pathology. Patient's BNP is also within normal limits. During my evaluation, he was on nebulizer. He could speak in full sentences. Allergies No Known Drug Allergies Allergy (Unverified 12/23/14 00:04) Unknown Physical Examination - Physical Exam General: Alert, Acute distress, Obese HEENT: Atraumatic, Normocephalic Respiratory: Diminished Cardiovascular: Regular rate/rhythm, Normal S1 S2, Edema (Bilateral lower extremity edema) Neurological: Normal speech - Studies Laboratory Data (last 24 hrs) 04/11/24 04/11/24 04/11/24 20:43 20:43 20:43 WBC 7.80 Hgb 14.4 Hct 43.0 Plt Count 194 PT 11.6 INR 1.04 APTT 29.7 Sodium 139 Potassium 3.5 BUN 24 H Creatinine 1.30 Glucose 132 H Total Bilirubin 0.4 AST 14 L ALT 36 Alkaline Phosphatase 46 Assessment and Plan - Problems (Diagnosis) (1) Acute hypoxemic respiratory failure Current Visit: Yes Status: Acute (2) Chronic lung disease Current Visit: Yes Status: Acute (3) Morbid obesity Current Visit: Yes Status: Acute - Plan Assessment This is a 38-year-old woman with morbid obesity and chronic lung disease of unknown etiology. He is being admitted for acute respiratory failure after presenting with shortness of breath and dry cough. His initial chest x- ray and BNP are within normal limits. Patient weighs 411 pounds, disqualifying him from undergoing CT Acute respiratory failure Chronic lung disease of unknown etiology Suspected ASAEL/OHS Morbid obesity Plan: Will admit inpatient Continue DuoNebs, Solu-Medrol and empiric antibiotics Patient has also been started on Dulera Influenza, COVID and sputum culture sent Pulmonary medicine consulted DVT and GI prophylaxis - Advance Directives Does patient have a Living Will: No Does patient have a Durable POA for Healthcare: No
[2024-04-11 22:14] LABS: Magnesium 2.1 mg/dL (1.6-2.4); Phosphorus 2.5 mg/dL (2.5-4.9)
[2024-04-11 22:48] VITALS: BMI 55.7
[2024-04-11] MEDS: PANTOPRAZOLE 40 MG INJ IVP SCH (23:04)
[2024-04-11] MEDS: Levofloxacin 750mg IV 750 MG/150 ML BAG IV SCH (23:05)
[2024-04-11 23:37] LABS: SARS-CoV-2 Antigen CONTROL BLUE LINE VIS/BG OK; SARS-CoV-2 Antigen Rapid Res Negative (Negative)
[2024-04-11] MEDS ORDERED: HYDROCODONE/APAP 7.5/325 MG TAB PO PRN (23:59)
[2024-04-12] MEDS ORDERED: HYDRALAZINE HCL 20 MG/ML VIAL IV PRN
[2024-04-12] MEDS: METHYLPREDNISOLONE 40 MG INJ IV SCH (00:24)
[2024-04-12] MEDS: carvediloL 12.5 MG TAB PO SCH (00:24)
[2024-04-12] MEDS: PREGABALIN 150 MG CAP PO ONE (00:24)
[2024-04-12] MEDS: IPRATROPIUM BROM 0.5MG/2.5ML NEB SCH (00:55)
[2024-04-12] MEDS: ALBUTEROL 2.5 MG/3 ML NEB SOL NEB SCH (00:55)
[2024-04-12] MEDS: HEPARIN 5000 UNIT/ML 1 ML VIAL SQ SCH (03:05)
--- NOTE | 2024-04-12 07:41 | P.PN ---
Date of Service: 04/12/24 subjective Presented with shortness of breath, history of pulmonary fibrosis review of symptom 10 point review of systems negative unless listed in HPI Physical Examination - Physical Exam vital signs Reviewed - Physical Exam General: Alert, Oriented x3 morbid obesity HEENT: Atraumatic, Normocephalic Neck: Supple Respiratory: Normal air movement, Expiratory wheezes, Cardiovascular: Normal pulses, lower extremity edema Capillary refill: <2 Seconds, Gastrointestinal: Soft and benign, non-tender, Musculoskeletal: No clubbing, No swelling, Integumentary: No rashes Neurological: Normal speech, Normal tone, Normal affect Assessment and Plan - Problems (Diagnosis) (1) Acute hypoxemic respiratory failure secondary to pulmonary fibrosis/asthma exacerbation Current Visit: Yes Status: Acute (2) Chronic lung disease Current Visit: Yes Status: Acute (3) Morbid obesity BMI 55 Current Visit: Yes Status: Acute (4) obstructive sleep apnea Current Visit: Yes Status: Acute obstructive sleep apnea history - Plan This is a 38-year-old woman with morbid obesity and chronic lung disease of unknown etiology. He is being admitted for acute respiratory failure after presenting with shortness of breath and dry cough. His initial chest x- ray and BNP are within normal limits. Patient weighs 411 pounds, disqualifying him from undergoing CT Plan: Will admit inpatient to [facility] Continue DuoNebs, Solu-Medrol and empiric antibiotics Patient has also been started on Dulera Influenza, COVID and sputum culture sent Pulmonary medicine consulted DVT and GI prophylaxis - Advance Directives Does patient have a Living Will: No Does patient have a Durable POA for Healthcare: No Time spent with patient 30 minutes
[2024-04-12] MEDS ORDERED: ALBUTEROL SULFATE IH SCH (09:00)
[2024-04-12] MEDS ORDERED: DULERA 200/5 (MOMETASONE/FORMOTEROL) INHALER IH SCH ×2 (09:00)
[2024-04-12] MEDS: DULERA 200/5 (MOMETASONE/FORMOTEROL) INHALER IH SCH (09:00)
[2024-04-12] MEDS ORDERED: ENOXAPARIN 40 MG/0.4 ML SQ SCH (09:00)
[2024-04-12] MEDS ORDERED: [UNRECOGNIZED DRUG - OTHER] IH SCH (09:00)
[2024-04-12] MEDS ORDERED: BUDESONIDE IH SCH (09:00)
[2024-04-12] MEDS: predniSONE 20 MG TAB PO SCH (09:31)
[2024-04-12] MEDS: allopurinoL 300 MG TAB PO SCH (09:31)
[2024-04-12] MEDS: FENOFIBRATE 48 MG TAB PO SCH (09:31)
[2024-04-12] MEDS: TORSEMIDE 20 MG TAB PO SCH (09:31)
[2024-04-12] MEDS: MONTELUKAST 10 MG TAB PO SCH (09:32)
[2024-04-12] MEDS: PREGABALIN 150 MG CAP PO SCH (09:32)
[2024-04-12] MEDS: AZITHROMYCIN 250 MG TAB PO SCH (09:32)
[2024-04-12] MEDS: POTASSIUM 25 MEQ EFFERV TAB PO ONE (09:34)
--- NOTE | 2024-04-12 10:23 | P.CNS ---
Date of Consult: 04/12/24 Reason for Consult: Shortness of breath Chief Complaint: shortness of breath History of Present Illness: Is 38 years of age with cough worsening dyspnea has become worse over the past 2 months she has had this on and off for years this is precipitated by exposure to the litter box for cats patient is also gained significant amount of weight he has a history of snoring apneic spells possibly underlying obstructive sleep apnea history of obstructive airways disease he was recently given a sample of air duo that has helped Allergies No Known Drug Allergies Allergy (Verified 04/11/24 22:45) Unknown Home Medications: Albuterol Sulfate/Budesonide [Airsupra 90-80 Mcg Inhaler] 2 puff IH DAILY 04/11/24 Allopurinol 1 tab PO DAILY 04/11/24 Cholecalciferol (Vitamin D3) [Vitamin D3] 1 cap PO SEECOM 04/11/24 Fenofibrate Nanocrystallized [Tricor] 1 tab PO DAILY 04/11/24 Hydrocodone 7.5/APAP 325 [Joseph 7.5/325 mg*] 1 tab PO DAILY PRN 04/11/24 Montelukast [Singulair*] 1 tab PO DAILY 04/11/24 Pregabalin [Lyrica] 1 cap PO BID 04/11/24 Torsemide [Demadex*] 1 tab PO DAILY 04/11/24 carvediloL [Coreg*] 1 tab PO BID 04/11/24 - Past Medical/Surgical History -: arthritis -: chronic pain -: degenerative disc disease -: HTN -: insomnia - Social History Smoking Status: Unknown if ever smoked Place of Residence: Home Review of Systems Unremarkable Physical Examination Temp Pulse Resp BP Pulse Ox 97.5 F 97 H 24 H 134/90 96 04/12/24 08:00 04/12/24 09:31 04/12/24 08:00 04/12/24 09:31 04/12/24 08:00 General: Alert, In no apparent distress, Oriented x3 Respiratory: Clear to auscultation bilaterally Cardiovascular: No edema, Regular rate/rhythm, Normal S1 S2 Gastrointestinal: Normal bowel sounds, Soft and benign Musculoskeletal: No clubbing, No swelling Laboratory Data (last 24 hrs) 04/11/24 04/11/24 04/11/24 20:43 20:43 20:43 WBC 7.80 Hgb 14.4 Hct 43.0 Plt Count 194 PT 11.6 INR 1.04 APTT 29.7 Sodium 139 Potassium 3.5 BUN 24 H Creatinine 1.30 Glucose 132 H Phosphorus 2.5 Magnesium 2.1 Total Bilirubin 0.4 AST 14 L ALT 36 Alkaline Phosphatase 46 - Problems (1) Asthma Current Visit: Yes Status: Acute Plan: Patient is 38 years of age admitted with dyspnea chest pressure coughing worse over the past 2 months aggravated by exposure to the litter box she has had the symptoms for a long time has become worse recently labs chemistries chest x-rays all reviewed chest x-ray is negative there is no evidence of infection SPECT he has obesity induced obstructive airways disease and for discharge on Symbicort or Dulera scheduled basis and albuterol as needed low-dose prednisone 10 mg twice a day for a week to follow-up with me as an outpatient will need outpatient pulmonary function testing his oxygenation is very satisfactory stable for discharge Qualifiers: Asthma severity: mild Asthma persistence: intermittent
[2024-04-12] MEDS: ONDANSETRON 4 MG/2 ML VIAL IV PRN (11:36)
--- NOTE | 2024-04-12 12:35 | EKG ---
Test Date: 2024-04-11 Test Time: 20:56:22 Workers Compensation Adjuster: CARLOS MEASUREMENT RESULTS: Intervals: Rate: 75 DC: 200 QRSD: 106 QT: 382 QTc: 426 [place]: P: -1 DC: 200 QRS: 47 T: 9 INTERPRETIVE STATEMENTS: Normal sinus rhythm Nonspecific T wave abnormality Abnormal ECG Compared to ECG 11/12/2022 08:20:16 T-wave abnormality now present Electronically Signed On 04-12-24 12:34:17 CDT by Vinny Anguiano
--- NOTE | 2024-04-12 15:37 | RAD REPORT ---
EXAMINATION: CTA CHEST PE CLINICAL INDICATION: Shortness of breath TECHNIQUE: 100 cc 370 Isovue administered intravenously. This examination was performed according to an angiographic protocol with 3D post-processing. This involves 3D reconstructions, MIPs, volume rendered images and/or shaded surface rendering. One or more of the following dose reduction techniqu es were used: Automated exposure control, adjustment of the mA and/or kV according to patient size, and/or iterative reconstruction. Unless otherwise specified, incidental findings do not require dedic ated imaging follow-up. [id number]. COMPARISON: No prior exam. FINDINGS: The opacification of the pulmonary arteries is poor.. This exam is not diagnostic to detect a pulmona ry embolus. An aortic aneurysm not noted. No pleural effusion. No pericardial effusion. Lungs are clear. IMPRESSION: The exam is nondiagnostic to detect a pulmonary embolus.
[2024-04-12] MEDS: NA CHLORIDE 0.9% 1,000 ML IV SCH (19:22)
[2024-04-13 10:07] VITALS: O2SAT 96
[2024-04-13 12:10] VITALS: BP 138/88; TEMP 97.5
--- NOTE | 2024-04-13 14:31 | ECHO ---
HEIGHT: 6 ft 0 in WEIGHT: 411 lb 0 oz DATE OF STUDY: 04/13/[address]: Joann Caceres MD 2-DIMENSIONAL: YES M.MODE: YES DOPPLER: YES COLOR FLOW: YES TDS: PORTABLE: YES DEFINITY: BUBBLE STUDY: DIAGNOSIS: CONGESTIVE HEART FAILURE CARDIAC HISTORY: CATHERIZATION: SURGERY: PROSTHETIC VALVE: PACEMAKER: MEASUREMENTS (cm) DIASTOLIC (NORMALS) SYSTOLIC (NORMALS) IVSd 1.3 (0.6-1.2) LA Diam 3.2 (1.9-4.0) LVEF 65% LVIDd 3.7 (3.5-5.7) LVIDs 2.4 (2.0-3.5) %FS 35% LVPWd 1.1 (0.6-1.2) Ao Diam 2.9 (2.0-3.7) 2 DIMENSIONAL ASSESSMENT: RIGHT ATRIUM: NORMAL LEFT ATRIUM: NORMAL RIGHT VENTRICLE: MILDLY DILATED LEFT VENTRICLE: NORMAL TRICUSPID VALVE: TRACE TRICUSPID REGURGITATION MITRAL VALVE: NORMAL PULMONIC VALVE: NORMAL AORTIC VALVE: NORMAL PERICARDIAL EFFUSION: NONE AORTIC ROOT: NORMAL LEFT VENTRICULAR WALL MOTION: NORMAL DOPPLER/COLOR FLOW: NORMAL COMMENTS: 1. NORMAL LEFT VENTRICULAR SYSTOLIC FUNCTION, EJECTION FRACTION 65%, NORMAL WALL MOTION 2. NORMAL DIASTOLIC FUNCTION 3. MILD DILATED RIGHT VENTRICLE WITH NORMAL FUNCTION 4. NORMAL FILLING PRESSURE TECHNOLOGIST: ANA HEMPHILL/ ARNULFO LUKE
[2024-04-16] MEDS ORDERED: VITAMIN D3 1250 MCG PO SCH (09:00)
== END 2024-04-13 15:24 | disposition home or self-care (01) | DRG 189 ==
LOC: ER 20:17 → ERHOLD 21:33 → 4TH 22:19
PROVIDERS: ADMIT Internal Medicine; ATTEND Hospitalist
DX: J96.01 Acute respiratory failure with hypoxia (principal); Z68.43 Body mass index [BMI] 50.0-59.9, adult; J45.21 Mild intermittent asthma with (acute) exacerbation; E66.01 Morbid (severe) obesity due to excess calories; I10 Essential (primary) hypertension; J84.10 Pulmonary fibrosis, unspecified; G47.33 Obstructive sleep apnea (adult) (pediatric); Z11.52 Encounter for screening for COVID-19; Z79.02 Long term (current) use of antithrombotics/antiplatelets; Z79.899 Other long term (current) drug therapy
CPT/HCPCS: 36415; 71045; 71275; 80053; 80061; 82947; 83605; 83735; 83880; 84100; 85025; 85379; 85610; 85730; 87040; 87804; 87811; 93005; 93306; 94640; 94760; 96374; 99285; J1644; J2405; J2470; J2919; J3535; J7030; J7512; J7613; J7614; J7644; Q9967

== ENCOUNTER 2024-10-07 22:06 | Emergency (ER) | payer OTHER ==
--- OUTSIDE RECORDS SUMMARY | 2024-10-07 22:10 | XMS REPORT | Continuity of Care Document ---
Author Name Unknown Address [address] [facility] [address] [place] [address] [facility] [place] Address [address] [facility] [facility] [address] [place] [address] Care Team Providers Care Plans Examiner Name Role Phone Richard Maravilla Primary Care Physician [phone] Doctor Unassigned, [place] Attending Clinician U MARCEL Lozano Attending Clinician UnavailMARCEL Knowles Attending Clinician Marcel Cole DO Attending Clinician [phone] BATSHEVA PHAM NATASHA Attending Clinician Unava ilable BATSHEVA PHAM NATASHA Admitting Clinician Unava ilable Payers Payer Name Policy Type Policy Number Effective Date Expirati on Date Source MEDICARE PART A \T\ B [id number] 2023 00:00:00 MISW MISW [id number] Allergies, Adverse Reactions, Alerts Allergy Name Allergy Type Status Severity Reaction(s) Onset Date Inactive Date Treating Clinician Comments Source No Known Allergie s DA Active U 2018-06 00:00: 00 [facility] NO KNOWN ALLERGIE S Drug Class Active [facility] Social History Social Habit Start Date Stop Date Quantity Comments Source Sexual orientation U [facility] Tobacco use and exposure 2024-05-17 00:00:00 2024-05-17 00:00:00 Smokeless tobacco non-user [facility] History of Social function 2024-05-17 00:00:00 2024-05-17 00:00:00 [facility] Sex assigned at 1985 00:00:00 1985 00:00:00 [facility] Smoking Status Start Date Stop Date Source Never smoked tobacco [facility] Medications Ordered Medication Name Filled Medication Name Start Date Stop Date Current Medication? Ordering Clinician Indication Dosage Frequency Signature (SIG) Comments Components Source pregabalin 150 mg capsule 2023-06 14:21: 07 Yes 150mg 1 capsule. [facility] carvediloL 12.5 mg tablet 2023-06 14:20: 46 Yes 2 (two) times daily with meals. [facility] fenofibrate 54 mg tablet 2023-06 14:20: 46 Yes 1 tablet Orally Once a day [facility] semaglutide (OZEMPIC) 0.25 mg or 0.5 mg (2 mg/3 mL) PnIj 2023-06 14:20: 46 Yes as directed Subcutaneo us Q Week [facility] torsemide 10 mg tablet 2023-06 14:20: 46 Yes 1 tablet Orally every other day [facility] famotidine 20 mg tablet 2023-06 14:20: 46 Yes 1 tablet Orally Twice a day [facility] pregabalin 200 mg capsule 2023-06 00:00: 00 Yes 200mg Take 1 capsule by mouth every 12 (twelve) hours. [facility] Cholecalcif edilberto, Vitamin D3, 1,250 mcg (50,000 unit) capsule 2023-06 022 00:00: 00 Yes 11550I Take 1 capsule by mouth weekly. [facility] allopurinoL 300 mg tablet 2023-06 0-18 00:00: 00 Yes 300mg Take 1 tablet by mouth in the morning. [facility] montelukast 10 mg tablet 2023-06 0-15 00:00: 00 Yes 10mg Take 1 tablet by mouth in the morning. [facility] Vital Signs Vital Name Observation Time Observation Value Comments S suzie Systolic blood pressure 2024-05-17 20:33:00 144 mm[Hg] [facility] Diastolic blood pressure 2024-05-17 20:33:00 88 mm[Hg] [facility] Heart rate 2024-05-17 20:33:00 81 /min [facility] Respiratory rate 2024-05-17 20:33:00 20 /min [facility] Body height 2024-05-17 20:33:00 182.9 cm [facility] Body weight 2024-05-17 20:33:00 190.465 kg [facility] BMI 2024-05-17 20:33:00 56.95 kg/m2 [facility] Oxygen saturation in Arterial blood by Pulse oximetry 2024-05-17 20:33:00 95 /min [facility] Procedures Procedure Date / Time Performed Performing Clinician Source DME/SUPPLY JUSTIFICATION 2024-05-24 22:27:29 Doc tor Unassigned, [place] [facility] DME/SUPPLY JUSTIFICATION 2024-05-19 20:15:34 Doc tor Unassigned, [place] [facility] Encounters Start Date/Time End Date/Time Encounter Type Admission Type Attending Clinicians Care Facility Care Department Encounter ID Source 2024-08-05 13:00:00 2024-08-05 13:00:00 Outpatient R [facility] [id number] [facility] 2024-05-19 00:00:00 2024-07-31 06:32:03 Orders Only Doctor Unassigned, [place] Doctor Unassigned, [place] [facility] [id number] [id number] 4.2.7.2.686 [id number] [facility] 2024-05-24 00:00:00 2024-07-31 06:30:55 Orders Only Doctor Unassigned, [place] Doctor Unassigned, [place] [facility] [id number] 350.1.13.10 4.2.7.2.686 [id number] [facility] 2024-07-12 14:30:00 2024-07-12 14:30:00 Outpatient R BRAD HAN SUCOZoey [facility] [id number] [facility] 2024-05-18 00:00:00 2024-05-18 16:03:32 Telephone Cortes Veezoey [facility] 1.2.840.114 350.1.13.10 4.2.7.2.686 [id number] [facility] 2024-05-17 14:00:00 2024-05-17 15:08:06 Outpatient R BRAD HAN SUCOZoey [facility] [id number] [facility] 2024-05-17 14:00:00 2024-05-17 15:08:06 Office Visit Vee Marcel [facility] 1.2.840.114 350.1.13.10 4.2.7.2.686 [id number] [facility] 2023-06-28 13:09:22 2023-06-28 13:09:22 Outpatient [facility] [id number] Sammy Rasmussen 2023-06-23 15:56:03 2023-06-23 15:56:03 Outpatient [facility] [id number] Sammy Hylton Grady 2023-04-07 16:39:32 2023-04-07 16:39:32 Outpatient S[facility] SFA [id number] Sammy Rasmussen 2023-01-20 08:07:07 2023-01-20 08:07:07 Outpatient [facility] SFA [id number] Sammy Hylton Grady 2022-12-16 14:20:46 2022-12-16 14:20:46 Outpatient [facility] SFA [id number] Sammy Hylton Grady 2022-11-25 14:54:03 2022-11-25 14:54:03 Outpatient SFA SFA [id number] Sammy Hylton Grady 2022-11-18 14:10:53 2022-11-18 14:10:53 Outpatient [facility] [id number] Sammy Rasmussen 2022-11-13 14:59:51 2022-11-13 14:59:51 Outpatient [facility] [id number] Sammy Rasmussen 2022-10-30 15:19:14 2022-10-30 15:19:14 Outpatient [facility] [id number] Sammy Rasmussen 2022-10-07 09:58:04 2022-10-07 09:58:04 Outpatient [facility] [id number] Sammy Rasmussen 2022-09-02 14:49:39 2022-09-02 14:49:39 Outpatient [facility] [id number] Sammy Rasmussen 2019-06-05 21:20:00 2019-06-13 09:15:00 Inpatient 3 BATSHEVA PHAM ENCPL MARILU [id number] [facility] Results Test Description Test Time Test Comments Results Resul t Comments Source DME/SUPPLY JUSTIFICATION 9 22:27:29 Ordered by an unspecified provider. [facility] DME/SUPPLY JUSTIFICATION 4 20:15:34 Ordered by an unspecified provider. [facility] COMPREHENSIVE METABOLIC [id number] 23:51:48* Test Item Value Reference Range Interpretation Comme nts GLUCOSE (test code = 2217) 142 MG/DL 70-99 H BUN (test code = 2208) 18 MG/DL 6-20 CREATININE (test code = 2214) 1.13 MG/DL 0.80-1.40 eGFR (2020 CKD-EPI) (test co de = 40137) 85 ML/MIN/1.73 >60 CALC BUN/CREAT (test code = 2235) 16 RATIO 6-28 SODIUM (test code = 2231) 137 MEQ/L 133-146 POTASSIUM (test code = 2228) 3.8 MEQ/L 3.5-5.4 CHLORIDE (test code = 2215) 98 MEQ/L 95-107 CARBON DIOXIDE (test code = 2206) 20 MEQ/L 19-31 CALCIUM (test code = 2209) 10.0 MG/DL 8.5-10.5 PROTEIN, TOTAL (test code = 9) 7.1 G/DL 6.1-8.3 ALBUMIN (test code = 2201) 4.5 G/DL 3.5-5.2 CALC GLOBULIN (test code = 2240) 2.6 G/DL 1.9-3.7 CALC A/G RATIO (test code = 2234) 1.7 RATIO 1.0-2.6 BILIRUBIN, TOTAL (test code = 2206) 0.5 MG/DL <=1.2 ALKALINE PHOSPHATASE (test code = 2203) 45 U/L 40-117 AST (test code = 2218) 22 U/L 9-50 ALT (test code = 221) 33 U/L 5-50 LIPID [id number] 23:51:48* Test Item Value Reference Range Interpretation Comme nts CHOLESTEROL (test code = 2210) 182 MG/DL <200 TRIGLYCERIDES (test code = 2232) 135 MG/DL <150 HDL CHOLESTEROL (test code = 2219) 44 MG/DL >39 CALC LDL CHOL (test code = 2236) 113 MG/DL <100 H NOTE: CALCULATED LDL IS BASED ON DELFIN-NOBLE METHOD WHICHINCLUDES ADJUSTABLE TRIGLYCERIDE:VLDL CHOLESTEROL RATIO.THIS FACTOR VARIES BY MEASURED TRIGLYCERIDE AND NON-HDLCHOLESTEROL CONCENTRATIONS WITH INCREASED CALCULATED LDL SEENIN HIGHER TRIGLYCERIDE OR LOWER NON-HDL SPECIMENS. FOR MOREINFORMATION, SEE CLIENT ANNOUNCEMENT AT [email or web address] RATIO LDL/HDL (test code = 2238) 2.57 RATIO <3.55 [id number] 10:31:43* Test Item Value Reference Range Interpretation [...] TESTING PERFORMED AT [facility] [address] [place] [address], [place] [address] PRODUCTION CONTROLLER: NAHED NDIAYE M.D. CLIA NUMBER [id number] [place]. [id number] HEMOGLOBIN [id number] 04:08:12* Test Item Value Reference Range Interpretation Comme nts HEMOGLOBIN A1c (test code = 68000) 5.3 % 4.2-5.6 UNLESS OTHERWISE INDICATED, ALL TESTING PERFORMED AT [facility] [address] [place] [address] PRODUCTION CONTROLLER: NAHED NDIAYE M.D. CLIA NUMBER [id number] [place]. [id number] CULTURE, [id number] 13:21:34SPECIMEN NUMBER: [id number] CULTURE, URINE SPECIMEN NUMBER: [id number] SPECIMEN COMMENT: URINE SOURCE: URINE REPORT STATUS: FINAL FINAL REPORT: 10/09/2022 10-50,000 CFU/ML UROGENITAL KRYSTIAN PRESENT NO CO MMON PATHOGENSANA REFLEX AUTOIMMUNE AB [id number] 00:03:52* Test Item Value Reference Range Interpretation Comme nts ANTI-NUCLEAR ANTIBODIES (test code = 3506) NEGATIVE NEGATIVE Methodology is I ndirect Immunofluorescent Assay (IFA) with a titering system using [id number] cells (Hep2 cells transfected with SS-A/Ro). [place] PATTERN (REPORTED TITER) (test code = 78556) SEE BELOW HOMOGENEOUS (test code = 22329) NEGATIVE TITER NEGATIVE SPECKLED (test code = 847015) NEGATIVE TITER NEGATIVE DENSE FINE SPECKLED (test code = 36107) NEGATIVE TITER NEGATIVE CENTROMERE (test code = 869467) NEGATIVE TITER NEGATIVE COARSE SPECKLED (test code = 367907) NEGATIVE TITER NEGATIVE DISCRETE NUCLEAR DOTS (test code = 334372) NEGATIVE TITER NEGATIVE NUCLEOLAR (test code = 784726) NEGATIVE TITER NEGATIVE NUCLEAR MEMBRANE (test code = 873137) NEGATIVE TITER NEGATIVE CYTO. RETICULAR (DARRELL) (test code = 817319) NEGATIVE NEGATIVE COMMENTS (test code = 188493) NONE METHOD (test code = 36313) (NOTE) TESTING PERFORME D BY [employer] IFA PLATFORM.THE METHOD INCLUDES A SCREEN THRESHOLD OF 1:80, DIGITIZED AND COMPUTER ALGORITHM-ASSISTED INTERPRETATION OF TITERS AND DIGITAL PATTERNS, AND HEp-2 CELL LINE SUBSTRATE. ADDITIONAL UNUSUAL PATTERNS WILL BE GIVEN COMMENTS.FOR MORE INFORMATION, SEE [email or web address] RHEUMATOID FACTOR, [id number] 23:07:35* Test Item Value Reference Range Interpretation Comme nts RHEUMATOID FACTOR, QUANT (te st code = 3502) <10 IU/ML <14 SEDIMENTATION [id number] 11:23:05* Test Item Value Reference Range Interpretation Comme nts SEDIMENTATION RATE (test cod e = 1017) 2 MM/HOUR 0-15 VITAMIN D, 25 [id number] 10:47:08* Test Item Value Reference Range Interpretation [...] . . . . . NG/ML 30-100 [facility] has important pathology staff changes effective 08/14/2022. New pathology staff will provide uninterrupted, excellent patient care and clinical consultation. See URL: [email or web address]. UNLESS OTHERWISE INDICATED, ALL TESTING PERFORMED AT [facility] [address] [place] [address] PRODUCTION CONTROLLER: NAHED NDIAYE M.D. CLIA NUMBER [id number] [facility] [place]. [id number] C-REACTIVE [id number] 07:03:35* Test Item Value Reference Range Interpretation Comme nts C-REACTIVE PROTEIN (test cod e = 3513) 1.5 MG/DL <0.5 H URIC [id number] 04:53:18* Test Item Value Reference Range Interpretation Comme nts URIC ACID (test code = 2233) 11.8 MG/DL 3.7-8.0 H - CT LOWER EXTRM W/O C [id number] 16:10:00Name: JAVY GRANGER [facility] : 1985 Age/S: 33 / M [address] Unit #: [id number] Loc: [place] [address] Phys: Dre Snyder MD Acct: [id number] Dis Date: Status: ADM IN PHONE #: [phone] Exam Date: 06/04/2019 1515 FAX #: Reason: pain left ankle and foot EXAMS: CPT: [id number] [place]TR[place] W/[place] [address] EXAM: - CT LOWER EXTRM W/O C LT HISTORY: pain left ankle and foot Location code:C3 COMPARISON: 05/31/2019 TECHNIQUE: Multiple axial CT images were obtained of the left foot and ankle without the use of IV contrast. Coronal and sagittal reformatted images are provided. One or more of the following dose reduction techniques were used: Automated exposure control,adjustment of the mA and/or kV according to patient size, and/or utilization of iterative reconstruction technique. DLP: 144.47 mGy-cm. FINDINGS: There is a 5 x 4 mm well-corticated ossific density along the course of the posterior tibial tendon lying just medial and inferior to the navicular. Mildmidfoot degenerative changes seen with small plantar calcaneal [...] Technologist:Ross Ch RT(R)(CT)(MRI) CTDI: DLP: Trnscb Date/Time: (1610) UrbanCB5 Orig Print D/T: S: 06/04/2019 (9533) PAGE 1 Signed ReportCBC W/AUTO [id number] 10:14:00* Test Item Value Reference Range Interpretation [...] REVIEW CONSISTANT WITH AUTO DIFFERENTIAL. CBC W/AUTO [id number] 07:54:00* Test Item Value Reference Range Interpretation [...] ode = MDIFF) DIFF/SCN CRITERIA BASIC METABOLIC [id number] 07:46:00* Test Item Value Reference Range Interpretation [...] code = CA) 8.8 MG/DL 8.5-10.1 N [id number] 07:46:00* Test Item Value Reference Range Interpretation Comme nts MAGNESIUM (test code = MAG) 2.1 MG/DL 1.8-2.4 N HGB [id number] 09:03:00* Test Item Value Reference Range Interpretation Comme nts HEMOGLOBIN (test code = HGB) 12.8 G/DL 12.3-15.9 N HEMATOCRIT (test code = HCT) 38.7 % 35.8-46.7 N CBC W/AUTO [id number] 06:02:00* Test Item Value Reference Range Interpretation [...] ode = MDIFF) YES DIFF/SCN CRITERIA WBC [id number] 06:02:00* Test Item Value Reference Range Interpretation Comme nts SEGMENTED NEUTROPHILS (test code = SEG) % 40-75 LYMPHOCYTE (test code = LYMPH) % 12.6-43.5 CBC W/AUTO [id number] 06:02:00* Test Item Value Reference Range Interpretation [...] ode = MDIFF) YES DIFF/SCN CRITERIA WBC [id number] 06:02:00* Test Item Value Reference Range Interpretation [...] = PLTEST) ADEQUATE THOUSAND ADEQUATE CBC W/AUTO [id number] 06:02:00* Test Item Value Reference Range Interpretation [...] ode = MDIFF) YES DIFF/SCN CRITERIA WBC [id number] 06:02:00* Test Item Value Reference Range Interpretation Comme nts SEGMENTED NEUTROPHILS (test code = SEG) % 40-75 LYMPHOCYTE (test code = LYMPH) % 12.6-43.5 BASIC METABOLIC [id number] 05:56:00* Test Item Value Reference Range Interpretation [...] CA) 8.7 MG/DL 8.5-10.1 N CBC W/AUTO [id number] 05:47:00* Test Item Value Reference Range Interpretation [...] MDIFF) DIFF/SCN CRITERIA - XR FLUOROSCOPY 0-60 [id number] 14:44:00Name: JAVY GRANGER [facility] : 1985 Age/S: 33 / M [address] Unit #: [id number] Loc: [place] [address] Phys: Richard Marie MD Acct: [id number] Dis Date: Status: ADM IN PHONE #: [phone] Exam Date: 05/31/2019 1430 FAX #: Reason: ORIF LEFT TIBIAL PLATEAU FX EXAMS: CPT:[id number] XR FLUOROSCOPY 0-60 MIN 46905 Fluoro Time: 227 SEC DAP (Gy m2): Air Kerma (mGy): EXAMINATION: - XR FLUOROSCOPY 0-60 MIN. LOCATION: S 17. HISTORY: ORIF LEFT TIBIAL PLATEAU FX. TECHNIQUE: Int raoperative fluoroscopy was utilized during surgery. Total reference air kerma was 21.54 mGy. FINDINGS/ IMPRESSION: Intraoperative fluoroscopy was utilized during surgery. Please refer to operative report for detail. at 6163 Reported and signed by: Marciano Farnsworth M.D. CC: Vasu Stone MD; Richard Marie MD PAGE 1 Signed Report Name: JAVY GRANGER [facility] : 1985 Age/S: 33 / M [address] Unit #: [id number] Loc:[place] [address] Phys: Richard Marie MD Acct: [id number] Dis Date: Status: ADM IN PHONE #: [phone] Exam Date: 05/31/2019 1430 FAX #: Reason: ORIF LEFT TIBIAL PLATEAU FX EXAMS: CPT: [id number] XR FLUOROSCOPY 0-60 MIN 33628 Fluoro Time: 227 SEC DAP (Gy m2): Air Kerma (mGy): (Continued) Technologist: Anabelle Holland, RT(R); Fartun Gray RT(R) Trnscb Date/Time: 05/31/2019 (8515) [email or web address].PR7 Orig Print D/T: S: 05/31/2019 (1572) PAGE 2 Signed Report- XR ANKLE 3+V [id number] 09:42:00Name: JAVY GRANGER [facility] : 1985 Age/S: 33 / M [address] Unit #: [id number] Loc: [place] [address] Phys: Richard Marie MD Acct: [id number] Dis Date: Status: REG [facility] PHONE #: [phone] Exam Date: 05/31/2019919 FAX #: Reason: RULE OUT INJURY EXAMS: CPT: [id number] XR ANKLE 3+[place] [address] Fluoro Time: DAP (Gy m2): Air Kerma [...] no evident foreign body. There are mild softtissue swelling of the medial malleolar region suggests edema . IMPRESSION: 1. Normal study of theosseous left ankle. Soft tissue swelling medially with suspected ligamentous injury/sprain. at 0942 Reported and signed by: Alex Rosario M.D. CC: Vasu Stone MD; Richard Marie MD PAGE 1 Signed Report Name: JAVY GRANGER [facility] : 1985 Age/S: 33 / M [address] Unit #: [id number] Loc: [place] [address] Phys: Richard Marie MD Acct: [id number] Dis Date: Status: REG [facility] PHONE #: [phone] Exam Date: 05/31/2019919 FAX #: Reason: RULE OUT INJURY EXAMS: CPT: [id number] XR ANKLE 3+[place] [address] Fluoro Time: DAP (Gy m2): Air Kerma (mGy): (Continued) Technologist: Anabelle Holland, RT(R); Fartun Gray RT(R) Trnwab Date/Time: 05/31/2019 (0942) Jace Orig Print D/T: S: 05/31/2019 (0996) PAGE 2 Signed ReportBASI METABOLIC [id number] 06:09:00* Test Item Value Reference Range Interpretation [...] CA) 9.5 MG/DL 8.5-10.1 N VITAMIN D [id number] 06:09:00* Test Item Value Reference Range Interpretation Comme nts VITAMIN D 25-HYDROXY (test code = VITD25) 8.2 ng/mL 30.0-100.0 A Vitamin D defici ency has been defined by the [place] of[place]icine and an Endocrine Society practice guideline as alevel of serum 25-OH vitamin D less than 20 ng/mL (1,2).The Endocrine Society went on to further define vitamin Dinsufficiency as a level between 21 and 29 ng/mL (2).1. IOM ([place] of [place]). 2010. Dietary reference intakes for calcium and D. [place]: The National Academies Press.2. Pratibha MF, Fernando NC, Randall GORDON, et al. Evaluation, treatment, and prevention of vitamin D deficiency: an Endocrine Society clinical practice guideline. JCEM. 2010; 96(7):1911-30.Performed At: [facility] [address] [id number] Richard King MD Ph:[phone] CBC W/AUTO [id number] 18:14:00* Test Item Value Reference Range Interpretation [...] SLIDE REVIEW CONSISTANT WITH AUTO DIFFERENTIAL. SED [id number] 18:14:00* Test Item Value Reference Range Interpretation Comme nts SED RATE (test code = SEDW) 22 mm/hr 0-15 H CBC W/AUTO [id number] 14:51:00* Test Item Value Reference Range Interpretation [...] c ode = MDIFF) DIFF/SCN CRITERIA SED [id number] 14:51:00* Test Item Value Reference Range Interpretation Comme nts SED RATE (test code = SEDW) 22 mm/hr 0-15 H URINALYSIS [id number] 14:05:00* Test Item Value Reference Range Interpretation [...] NEGATIVE Urine Specimen Type: Clean CatchC REACTIVE [id number] 13:57:00* Test Item Value Reference Range Interpretation Comme nts C REACTIVE PROTEIN (test cod e = CRP) 1.190 MG/DL 0.000-0.3 H PROTHROMBIN [id number] 13:41:00* Test Item Value Reference Range Interpretation Comme [facility] PT PATIENT (test code = PTP) 13.2 SECONDS 9.3-12.9 H INTERNATIONAL NORMAL RATIO (test code = INR) 1.16 INR Unit 0.8-1.2 N THROMBOPLASTIN TIME [id number] 13:41:00* Test Item Value Reference Range Interpretation Comme [facility] THROMBOPLASTIN TIME PARTIAL (test code = PTT) 29.8 SECONDS 26-35 N BASIC METABOLIC [id number] 13:39:00* Test Item Value Reference Range Interpretation [...] CA) 9.5 MG/DL 8.5-10.1 N VITAMIN D [id number] 13:39:00* Test Item Value Reference Range Interpretation Comme nts VITAMIN D 25-HYDROXY (test c ode = VITD25) CBC W/AUTO [id number] 13:22:00* Test Item Value Reference Range Interpretation [...] c ode = MDIFF) DIFF/SCN CRITERIA SED [id number] 13:22:00* Test Item Value Reference Range Interpretation Comme nts SED RATE (test code = SEDW) mm/hr 0-15 - XR CHEST 2 [id number] 12:33:00Name: JAVY GRANGER [facility] : 1985 Age/S: 33 / M [address] Unit #: [id number] Loc: [place] [address] Phys: Richard Marie MD Acct: [id number] Dis Date: Status: PRE [facility] PH ONE #: [phone] Exam Date: 05/28/2019 1224 FAX #: Reason: PREOP EXAMS: CPT: [id number] XR CHEST 2 V 05702 Fluoro Time: DAP (Gy m2): Air Kerma [...] PAGE 1 Signed Report Name: JAVY GRANGER [facility] : [birth year] Age/S: 33 / M [address] Unit #: [id number] Loc: [place] [address] Phys: Richard Marie MD Acct: [id number] Dis Date: Status: PRE [facility] PHONE #: [phone] Exam Date: 05/28/2019 1224 FAX #: Reason: PREOP EXAMS: CPT: [id number] XR CHEST 2 V 18274 Fluoro Time: DAP (Gy m2): Air Kerma (mGy): (Continued) Technologist: Anabelle Holland, RT(R) Trnscb Date/Time: 05/28/2019 (1239) t.SDR.JP19 Orig Print D/T: S: 05/28/2019 (2200) PAGE 2 Signed Report Notes Date/Time Note Provider Source 2024-05-18 16:00:03 Orders processed via parachute for nebulizer machine and medications as ordered in MD notes. Please follow up with them for status updates. [facility] [phone] [facility] 2019-06-14 07:36:00 [facility] ([facility]) Hospitalist Discharge Summary REPORT#:[id number] REPORT STATUS: Signed DATE:06/14/19 TIME:735 PATIENT: JAVY GRANGER UNIT #: [id number] ROOM/BED: [place] [address] : [birth year] AGE: 33 SEX: M ATTEND: [...] and went to a freestanding ER in [place] from where he followed up apparently with [...] Prescriptions: on chart at 0739 RPT #: [id number] END OF REPORT [facility] 2019-06-05 11:40:00 [facility] ([facility]) Hospitalist Progress Note REPORT#:[id number] REPORT STATUS: Signed DATE:06/05/19 TIME:1140 PATIENT: JAVY GRANGER UNIT #: [id number] ROOM/BED: [place] [address] : [birth year] AGE: 33 SEX: M ATTEND: [...] 06/04 1958 98 Room air 21 06/04 195 36.6 90 16 142/85 103.5 97 Room air 06/04 1617 36.8 95 18 133/79 97.3 94 Room air 24 hour I O ending at 0700: 06/05 0700 06/04 1900 Intake Total 360 Output Total 1999 2399 Balance -1999 Intake, Oral 360 Output, Urine [...] will consider home with home health with nursing service administrator for bed baths and assistance at [...] at inpatient rehab at 1141 RPT #: [id number] END OF REPORT [facility] 2019-06-04 15:48:00 [facility] ([facility]) Hospitalist Progress Note REPORT#:[id number] REPORT STATUS: Signed DATE:06/04/19 TIME:1548 PATIENT: JAVY GRANGER UNIT #: [id number] ROOM/BED: [place] [address] : [birth year] AGE: 33 SEX: M ATTEND: [...] will consider home with home health with nursing service administrator for bed baths and assistance at [...] L foot pain at 1554 RPT #: [id number] END OF REPORT [facility] 2019-06-03 18:23:00 [facility] ([facility]) Hospitalist Progress Note REPORT#:[id number] REPORT STATUS: Signed DATE:06/03/19 TIME:1822 PATIENT: BÁRBARAJAVY UNIT #: [id number] ROOM/BED: [place] [address] : 83 AGE: 33 SEX: M ATTEND: [...] Intake Total 800 240 Output Total 2300 2000 Balance -1500 -1760 Intake, Oral 800 240 [...] will consider home with home health with nursing service administrator for bed baths and assistance at [...] pending rehab acceptance at 1824 RPT #: [id number] END OF REPORT [facility] 2019-06-02 12:25:00 [facility] Hospitalist Progress Note REPORT#:[id number] REPORT STATUS: Signed DATE:06/02/19 TIME:1225 PATIENT: JAVY GRANGER UNIT #: [id number] ROOM/BED: [place] [address] : 84 AGE: 33 SEX: M ATTEND: [...] will consider home with home health with nursing service administrator for bed baths and assistance at [...] MEALS 05/31 1945 CKD 06/02 PO 06/30 193 0844 Famotidine [...] Bitart/ 2 TAB Q4H PRN PRN 05/31 1430 AC 06/02 Acetaminophen PO 06/10 1429 1104 at 1228 RPT #: [id number] END OF REPORT [facility] 2019-06-01 20:36:00 [facility] ([facility]) Orthopaedic Progress Note REPORT#:[id number] REPORT STATUS: Signed DATE:06/01/19 TIME:2035 PATIENT: JAVY GRANGER UNIT #: [id number] ROOM/BED: [place] [address] : 84 AGE: 33 SEX: M ATTEND: Brian Avery MD ADM AUTHOR: Richard Marie MD * ALL edits or amendments must be made on the electronic/computer document * Subjective Chief complaint: pt in alot of pain but believe nl postop for terrible fracture, hopefully better pod#3, needs pain control, and independence with PT at 2037 RPT #: [id number] END OF REPORT [facility] 2019-06-01 14:24:00 [id number] [facility] [address] [place] [address] PATIENT NAME: JAVY RGANGER ADMIT DATE: 06/01/19 ACCOUNT NO: [id number] ROOM NO: [facility] AGE: 33 REPORT TYPE: HISTORY AND PHYSICAL SEX: M ADMITTING PHYSICIAN: Brian Avery MD ATTENDING PHYSICIAN: Brian Avery MD ADMISSION DATE: 06/01/2019 PRIMARY CARE PHYSICIAN: Vasu Stone MD in [place]. CHIEF COMPLAINT: Left knee and left foot pain. HISTORY OF PRESENTING ILLNESS: The patient is a 33-year-old male. He has a past medical history of osteoarthritis and insomnia. The patient had fallen around 05/16/2019 and went to a freestanding ER in [place] from where he followed up apparently with [...] By: Dre Snyder MD WT: HP:DIANNE/THIAGO/TOYA Conf#: [id number]/DID#: [id number] Authenticated and Edited by Dre Snyder MD On 06/03/19 7:32:21 PM at 1935 PATIENT NAME: JAVY GRANGER [facility] 2019-05-31 17:52:00 [facility] ([facility]) Post Anesthesia Evaluation REPORT#:[id number] REPORT STATUS: Signed DATE:05/31/19 TIME:1751 PATIENT: JAVY GRANGER UNIT #: [id number] ROOM/BED: [place] [address] : 84 AGE: 33 SEX: M ATTEND: [...] 85 14 156/96 94 05/31 1452 Simple [id number] mask 05/31 1450 85 15 157/107 93 05/31 1445 82 12 151/100 93 05/31 1442 36.3 85 14 156/101 100 Simple [id number] mask 05/31 0909 37.1 89 18 139/89 97 Room air 0.649918 Cardiovascular: no change, CV system stable, vital [...] apparent anes. issues at 1754 RPT #: [id number] END OF REPORT [facility] 2019-05-31 16:40:00 [id number] [facility] [id number] [place] [address] PATIENT NAME: JAVY GRANGER ADMIT DATE: 05/31/19 ACCOUNT NO: [id number] ROOM NO: [facility] AGE: 33 REPORT TYPE: OPERATIVE REPORT SEX: M ADMITTING PHYSICIAN: Brian Avery MD ATTENDING PHYSICIAN: Brian Avrey MD OPERATION DATE: 05/31/2019 PREOPERATIVE DIAGNOSIS: The [...] throughout the case. SURGEON: Richard Marie MD NURSE: Zev Ragland MD ANESTHESIA: General. ESTIMATED BLOOD [...] condition. Dictated By: Richard Marie MD WT: OP:LGORDON/ABRAHAM/TOYA Conf#: [id number]/DID#: [id number] Authenticated and Edited by Richard Marie MD On 06/01/19 3:29:05 PM at 1533 PATIENT NAME: JVAY GRANGER [facility] 2019-05-31 14:33:00 [facility] ([facility]) Brief Op Note REPORT#:[id number] REPORT STATUS: Signed DATE:05/31/19 TIME:1433 PATIENT: JAVY GRANGER UNIT #: [id number] ROOM/BED: [place] [address] : 84 AGE: 33 SEX: M ATTEND: Richard Marie MD ADM AUTHOR: Richard Marie MD * ALL edits or amendments must be made on the electronic/computer document * Op/Inv Proc Note - Brief Pre-procedure diagnosis: bicondylar tibial plateau Post-procedure diagnosis: same as pre procedure dx Procedures performed: orif ant and postero medial, ex on and off Primary Surgeon: mayuri Pier Hand(s): nitish Findings: bicondylar with post fxs and cominution Complications: none Estimated blood loss in ml's: 300cc Specimens removed/altered: cultures at 1436 RPT #: [id number] END OF REPORT [facility]
[2024-10-07] MEDS ORDERED: HYDROCODONE/APAP 7.5/325 MG TAB ONE (23:10)
--- NOTE | 2024-10-07 23:45 | ER ---
Nurse's Notes [facility] Name: Campos Sampson Age: 39 yrs Sex: Male : 1985 Arrival Date: 10/07/2024 Time: 22:06 Bed 20 Private MD: Diagnosis: Fall (on)(from) incline;Sprain of other specified parts of left knee;Sprain of other ligament of right ankle Presentation: 10/07 22:33 Chief complaint: Patient states: I FELL AND HURT MY LEFT KNEE AND RIGHT ANKLE . ha1 BILATERAL ELBOW PAIN. 22:33 Coronavirus screen: Client denies travel out of the [place] in the last 14 days. Ebola ha1 Screen: No symptoms or risks identified at this time. Initial Sepsis Screen: Does the patient meet any 2 criteria? No. Patient's initial sepsis screen is negative. Does the patient have a suspected source of infection?. Risk Assessment: Do you want to hurt yourself or someone else? Patient reports no desire to harm self or others. Onset of symptoms was October 07, 2024. 22:33 Method Of Arrival: Wheelchair ha1 22:33 Acuity: ANGELA 4 ha1 23:00 Care prior to arrival: None. Mechanism of Injury: Fall from standing position. Trauma kj2 event details: Injury occurred: October 07, 2024. Historical: - Allergies: 22:48 No Known Allergies; ha1 - PMHx: 22:48 Arthritis; Chronic pain; Degenerative disc disease; Hypertension; insomnia; ha1 - PSHx: 22:48 knee sx; Tonsillectomy; ha1 - Immunization history:: Adult Immunizations not up to date. - Infectious Disease History:: Denies. - Immunization history: Last tetanus immunization: unknown. - Social history:: Smoking status: Patient denies any tobacco usage or history of. Screenin:00 [facility] ED Fall Risk Assessment (Adult) History of falling in the last 3 months, kj2 including since admission Yes- single mechanical fall (1 pt) Confusion or Disorientation No (0 pts) Intoxicated or Sedated No (0 pts) Impaired Gait No (0 pts) Mobility Assist Device Used Yes (1 pt) Altered Elimination No (0 pt) Score/Fall Risk Level 0 - 2 = Low Risk Maintained a safe environment, Hourly rounding (assess needs \T\ fall precautionary measures) done. Abuse screen: Denies threats or abuse. Denies injuries from another. Nutritional screening: No deficits noted. Tuberculosis screening: No symptoms or risk factors identified. Primary Survey: 23:00 NO uncontrolled hemorrhage observed. Breathing/Chest: Spontaneous respiratory effort, kj2 equal unlabored respirations, breath sounds clear bilaterally, regular pattern, symmetrical chest rise and fall. Circulation: No external hemorrhage present. Regular and strong central pulse, skin warm/dry/normal color. Disability Pupils are equal, round, reactive to light and accommodation. Exposure/Environment: All clothing and personal items were removed. Forensic evidence collection is not deemed to be indicated at this time. Items placed in patient belonging bag. Reassessment Breathing: Spontaneous respiratory effort, equal unlabored respirations, breath sounds clear bilaterally, regular pattern with symmetrical chest rise and fall. Respiratory effort Spontaneous Breath sounds Clear Respiratory pattern Regular Chest inspection Symmetrical Circulation: No external hemorrhage noted. Regular and strong central pulse, skin warm/dry/normal color. Disability: Pupils Pupils are equal, round, reactive to light and accomodation. Assessment: 23:00 General: Appears in no apparent distress. Behavior is cooperative. Pain: Complains of kj2 pain in right ankle and left knee Pain currently is 7 out of 10 on a pain scale. Neuro: Level of Consciousness is awake, alert, obeys commands, Oriented to person, place, time, situation. Cardiovascular: Patient's skin is warm and dry. Respiratory: Airway is patent Respiratory effort is even, unlabored. GI: No signs and/or symptoms were reported involving the gastrointestinal system. : No signs and/or symptoms were reported regarding the genitourinary system. 23:39 Reassessment: Patient appears in no apparent distress at this time. Patient and/or kj2 family updated on plan of care and expected duration. Pain level reassessed. Patient is alert, oriented x 3, equal unlabored respirations, skin warm/dry/pink. Vital Signs: 22:33 BP 155 / 103; Pulse 89; Resp 20 S; Temp 98.3; Pulse Ox 96% ; Weight 190.51 kg; Height 6 ha1 ft. 0 in. ; 23:50 BP 150 / 88; Pulse 80; Resp 20; Temp 98; Pulse Ox 100% ; kj2 22:33 Body Mass Index 56.96 (190.51 kg, 182.88 cm) ha1 Morrill Coma Score: 23:00 Eye Response: spontaneous(4). Motor Response: obeys commands(6). Verbal Response: kj2 oriented(5). Total: 15. Trauma Score (Adult): 23:00 Eye Response: spontaneous(1); Verbal Response: oriented(1); Motor Response: obeys kj2 commands(2); Systolic BP: > 89 mm Hg(4); Respiratory Rate: 10 to 29 per min(4); Morrill Score: 15; Trauma Score: 12 ED Course: 22:09 Patient arrived in ED. jj6 22:09 Deneen Dorado PA-C is PHCP. sb4 22:09 Cole Sarah MD is Attending Physician. sb4 22:48 Triage completed. ha1 23:00 Arm band placed on Patient placed in an exam room, on a stretcher. kj2 23:00 Patient has correct armband on for positive identification. Bed in low position. Call kj2 light in reach. Adult w/ patient. Provided Education on: call light. 23:00 No provider procedures requiring assistance completed. Inserted. kj2 23:00 Patient maintains SpO2 saturation greater than 95% on room air. kj2 23:01 Tib Fib Left XRAY In Process Unspecified. EDMS 23:01 Ankle Right 3 View XRAY In Process Unspecified. EDMS 23:01 Foot Right 3 View XRAY In Process Unspecified. EDMS 23:06 Sobeida Fenton, RN is Primary Nurse. kj2 23:48 Thermoregulation: none needed. kj2 Administered Medications: 23:15 Drug: Hydrocodone-Acetaminophen PO (7.5 mg-325 mg) 1 tabs PO once Route: PO; kj2 23:49 Follow up: Response: No adverse reaction kj2 Medication: 23:00 VIS not applicable for this client. kj2 Intake: 23:00 PO: 120ml; Total: 120ml. kj2 Outcome: 23:44 Discharge ordered by . sb4 23:46 Discharged to home ambulatory, kj2 23:46 Condition: stable 23:46 Patient's length of stay was not longer than 2 hours. 23:47 Discharge instructions given to patient, Instructed on discharge instructions, follow kj2 up and referral plans. Demonstrated understanding of instructions, follow-up care, 10/08 00:15 Patient left the ED. kj2 Signatures: Dispatcher [employer] Linda Will jj6 Elise Saunders, RN RN ha1 Deneen Doardo PA-C PA-C sb4 Sobeida Fenton RN RN kj2
--- NOTE | 2024-10-07 23:45 | EDPHYS ---
Physician Documentation [facility] Name: Campos Sampson Age: 39 yrs Sex: Male : 1985 Arrival Date: 10/07/2024 Time: 22:06 Bed 20 Private MD: ED Physician Cole Sarah HPI: 10/07 23:02 This 39 yrs old Male presents to ER via Wheelchair with complaints of Fall Injury, Leg sb4 Injury. 23:02 Patient states that he fell through the floor, about 3 feet. Is complaining of pain to sb4 his left knee and right ankle and foot. Reports prior injury to the left knee, has a lot of hardware. Denies any head trauma. No loss of consciousness. Historical: - Allergies: 22:48 No Known Allergies; ha1 - PMHx: 22:48 Arthritis; Chronic pain; Degenerative disc disease; Hypertension; insomnia; ha1 - PSHx: 22:48 knee sx; Tonsillectomy; ha1 - Immunization history:: Adult Immunizations not up to date. - Infectious Disease History:: Denies. - Immunization history: Last tetanus immunization: unknown. - Social history:: Smoking status: Patient denies any tobacco usage or history of. ROS: 23:02 Constitutional: Negative for fever, chills, and weight loss, sb4 23:02 MS/extremity: Positive for injury or acute deformity, decreased range of motion, pain, per HPI, 23:02 All other systems are negative, Exam: 23:06 Head/Face: Normocephalic, atraumatic. Eyes: Extra-ocular motions intact. Periorbital sb4 areas with no swelling, redness, or edema. ENT: Mucous membranes moist. Respiratory: No increased work of breathing, no retractions or nasal flaring. 23:06 Constitutional: The patient appears in no acute distress, alert, awake, obese, 23:06 Musculoskeletal/extremity: Joints: the left knee displays painful range of motion, swelling, tenderness, the right ankle displays painful range of motion, swelling, tenderness, Weight bearing: can bear weight with assistance only, uses cane, Vital Signs: 22:33 BP 155 / 103; Pulse 89; Resp 20 S; Temp 98.3; Pulse Ox 96% ; Weight 190.51 kg; Height 6 ha1 ft. 0 in. ; 23:50 BP 150 / 88; Pulse 80; Resp 20; Temp 98; Pulse Ox 100% ; kj2 22:33 Body Mass Index 56.96 (190.51 kg, 182.88 cm) ha1 Shirley Coma Score: 23:00 Eye Response: spontaneous(4). Motor Response: obeys commands(6). Verbal Response: kj2 oriented(5). Total: 15. Trauma Score (Adult): 23:00 Eye Response: spontaneous(1); Verbal Response: oriented(1); Motor Response: obeys kj2 commands(2); Systolic BP: > 89 mm Hg(4); Respiratory Rate: 10 to 29 per min(4); Gretel Score: 15; Trauma Score: 12 MDM: 22:13 Medical Screening Exam initiated sb4 23:43 Data reviewed: vital signs, nurses notes, radiologic studies, and as a result, I will sb4 discharge patient. Care significantly affected by the following chronic conditions: Hypertension, Obesity. Counseling: I had a detailed discussion with the patient and/or guardian regarding the historical points, exam findings, and any diagnostic results supporting the discharge/admit diagnosis, radiology results, the need for outpatient follow up, for definitive care, to return to the emergency department if symptoms worsen or persist or if there are any questions or concerns that arise at home. 10/07 22:42 Order name: Tib Fib Left XRAY sb4 10/07 22:42 Order name: Ankle Right 3 View XRAY sb4 10/07 22:42 Order name: Foot Right 3 View XRAY sb4 Administered Medications: 23:15 Drug: Hydrocodone-Acetaminophen PO (7.5 mg-325 mg) 1 tabs PO once Route: PO; kj2 23:49 Follow up: Response: No adverse reaction kj2 Disposition: 10/08 02:04 Co-signature as Attending Physician, Cole Sarah MD I reviewed the patient's care rn provided by the Advanced Practice Provider and agree with the diagnosis and treatment plan. Disposition Summary: 10/07/24 23:44 Discharge Ordered Notes: Location: Home sb4 Problem: new sb4 Symptoms: have improved sb4 Condition: Stable sb4 Diagnosis - Fall (on)(from) incline sb4 - Sprain of other specified parts of left knee sb4 - Sprain of other ligament of right ankle sb4 Followup: sb4 - With: Private Physician - When: 1 week - Reason: Recheck today's complaints, Re-evaluation by your physician Discharge Instructions: - Discharge Summary Sheet sb4 - Musculoskeletal Pain sb4 Forms: - Antibiotic Education sb4 - Patient Portal Instructions sb4 - Leadership Thank You Letter sb4 Prescriptions: - Diclofenac Sodium 75 mg Oral Tablet Sustained Release - take 1 tablet ORAL route 2 times per day; 30 tablet; Refills: 0, Product sb4 Selection Permitted - Tramadol 50 mg Oral Tablet - take 1 tablet ORAL route every 8 hours as needed; 12 tablet; Refills: 0, sb4 Product Selection Permitted - methocarbamol 750 mg Oral tablet - take 2 tablets ORAL route 3 times per day; 20 tablet; Refills: 0, Product sb4 Selection Permitted Signatures: Dispatcher [employer] EDMS Cole Sarah MD MD rn Ayala, Heidy RN RN ha1 Deneen Dorado, PAMiltonC PAMiltonC sb4 Sobeida Fenton RN RN kj2 Corrections: (The following items were deleted from the chart) 10/07 22:43 22:43 Knee Left 3 View+RAD.RAD.BRZ ordered. EDMS EDMS 22:43 22:43 Tib Fib Left+RAD.RAD.BRZ ordered. EDMS EDMS 22:43 22:43 Ankle Right 3 View+RAD.RAD.BRZ ordered. EDMS EDMS 22:43 22:43 Foot Right 3 View+RAD.RAD.BRZ ordered. EDMS EDMS
[2024-10-08 00:45] VITALS: BP 150/88; TEMP 98; O2SAT 100
--- NOTE | 2024-10-08 05:45 | RAD REPORT ---
EXAM DESCRIPTION: Foot Right 3 View, 10/07/2024 10:42 PM CDT CLINICAL HISTORY: 39 years, Male, PAIN TECHNIQUE: 3 views right foot COMPARISON: None. FINDINGS: Alignment normal. Mild degenerative change of the interphalangeal joints. Small plantar c alcaneal spur. Mild subcutaneous edema over the dorsum of the foot. No soft tissue gas. No acute fracture identified. IMPRESSION: 1. No fracture or malalignment of the right foot. 2. Mild degenerative change. Mild subcutaneous edema. Electronically signed by: Filippo Garcia MD 10/07/2024 11:18 PM CDT Due to temporary technical issues with the PACS/[employer] reporting system, reports are being sign ed by the in-house radiologist without review as a courtesy to ensure prompt reporting the interpreting radiologist is fully responsible for the content of the report. Transcribed Date/Time: 10/08/2024 5:45 AM
--- NOTE | 2024-10-08 05:45 | RAD REPORT ---
EXAM: XR Right Ankle Complete, 3 or More Views CLINICAL HISTORY: PAIN TECHNIQUE: Frontal, lateral and oblique views of the right ankle. COMPARISON: No relevant prior studies available. FINDINGS: Bones/joints: No acute fracture. Small posterior and inferior calcaneal these findings. Mild degene rative changes at the mid foot. No dislocation. Soft tissues: Generalized soft tissue edema. IMPRESSION: Generalized soft tissue edema. No acute fracture. Electronically signed by: Mireya Quiroz MD 10/07/2024 11:17 PM CDT Due to temporary technical issues with the PACS/[employer] reporting system, reports are being nelson d by the in-house radiologist without review as a courtesy to ensure prompt reporting the interpreting radiologist is fully responsible for the content of the report. Transcribed Date/Time: 10/08/2024 5:45 AM
--- NOTE | 2024-10-08 05:46 | RAD REPORT ---
CLINICAL HISTORY: Pain. COMPARISON: None. TECHNIQUE: XR TIBIA FIBULA LEFT 10/07/2024 10:42 PM CDT FINDINGS: There is no fracture. Joint spaces are preserved. There is plate and screw fixation of the proximal t ibia. There is diffuse soft tissue swelling. There is a small calcaneal spur. IMPRESSION: No acute osseous findings. Electronically signed by: Jelani Tillman MD 10/07/2024 11:35 PM CDT RP Due to temporary technical issues with the PACS/My-[employer] reporting system, reports are being nelson d by the in-house radiologist without review as a courtesy to ensure prompt reporting the interpreting radiologist is fully responsible for the content of the report. Transcribed Date/Time: 10/08/2024 5:45 AM
== END 2024-10-08 00:15 | disposition home or self-care (01) ==
LOC: ER 22:06
DX: S83.8X2A Sprain of other specified parts of left knee, initial encounter (principal); S93.491A Sprain of other ligament of right ankle, initial encounter; W10.2XXA Fall (on)(from) incline, initial encounter
CPT/HCPCS: 99284